=== PATIENT | male | born 1955 | race Two or more races ===

== ENCOUNTER 2016-09-23 19:22 | Inpatient (IN) | payer MEDICAID ==
[~2016-09-23] VITALS: Ht 167.6 cm; Wt 87.3 kg
[~2016-09-23 19:22] MED LIST: AMIO200T33 PO; APIX2.5T OR; ASPI-231 PO; ATOR20TA50 PO; CALC667C PO; CARV6.25 PO; CINA30TA2 PO; DOCU-94 PO; ERGO1CAP6 PO; GABA300C8 PO; HYDR-2652 PO; MIN25T PO; NEPVITT PO; NITR0.4S29 SL; PANT40TA2 PO; SEVE800T PO; TRAM50TA2 PO
[2016-09-23 20:13] LABS: Basophils # (auto) 0 uL; Basophils % (auto) 0.2 % (0.0-2.0); Eosinophils # (auto) 0.4 uL; Eosinophils % (auto) 4.5 % (0.0-7.0); Hemoglobin 11.1 g/dL (13.5-17.5); Lymphocytes # (auto) 0.9 uL; Lymphocytes % (auto) 10.3 % (10.0-50.0); Mean Corpuscular Hemoglobin 30.3 pg (28.0-32.0); Mean Corpuscular Hgb Conc. 32.8 g/dL (32.0-36.0); Mean Corpuscular Volume 92.2 fL (80.0-100.0); Monocytes # (auto) 0.9 uL; Neutrophils # (auto) 6.1 uL; Platelet Count (auto) 187 10^3/uL (140-450); Red Cell Distribution Width 14.2 % (11.6-16.0); White Blood Cell 8.3 10^3/uL (4.4-10.8)
[2016-09-23 20:39] LABS: Albumin 3.8 g/dL (3.4-5.0); BUN/Creatinine Ratio 8.2; Bilirubin, Total 0.5 mg/dL (0.2-1.0); Calcium 7.9 mg/dL (8.5-10.1); Potassium 4.1 mmol/L (3.5-5.1); Total Protein 7.8 g/dL (6.4-8.2)
[2016-09-24] MEDS ORDERED: NITROGLYCERIN 0.4 MG SL TAB SL PRN (10:45)
[2016-09-24] MEDS ORDERED: FUROSEMIDE 40 MG/4 ML VIAL IV SCH (10:45)
[2016-09-24] MEDS ORDERED: TEMAZEPAM 15 MG CAP PO PRN (10:45)
[2016-09-24] MEDS ORDERED: NITROGLYCERIN 0.2MG/HR TOPICAL PATCH TD ONE (10:45)
[2016-09-24] MEDS ORDERED: HYDROcodone-ACET 5/325MG TAB PO PRN (10:45)
[2016-09-24] MEDS ORDERED: DEXTROSE (50%) 50ML SYRG IV PRN (10:45)
[2016-09-24] MEDS ORDERED: FUROSEMIDE 20 MG/2 ML VIAL IV SCH (10:45)
[2016-09-24] MEDS ORDERED: PROMETHAZINE HCL 25 MG/ML 1ML IV PRN (10:45)
[2016-09-24] MEDS ORDERED: CARVEDILOL 3.125 MG TAB PO ONE (10:45)
[2016-09-24] MEDS ORDERED: ACETAMINOPHEN 500 MG TAB PO PRN (10:45)
[2016-09-24] MEDS ORDERED: MORPHINE SULF INJ 2 MG/ML SYRINGE 1ML IV PRN (10:45)
[2016-09-24] MEDS ORDERED: LORazepam 0.5 MG TAB PO PRN (10:45)
[2016-09-24] MEDS ORDERED: ASPirin 81 mg TAB PO ONE (10:45)
[2016-09-24] MEDS ORDERED: ENOXAPARIN SOD 30 MG/0.3 ML SYRINGE SC ONE (10:45)
[2016-09-24] MEDS ORDERED: LACTULOSE 20Gm/30ML SOLN PO PRN (10:45)
[2016-09-24] MEDS: ACCU-CHEK COMFORT CURVE STRIP VI SCH ×3 (11:12→22:00)
[2016-09-24] MEDS: InsuLIN REG 1unit/0.01ml Soln (100units/ml) SC SCH ×3 (11:12→22:00)
[2016-09-24 11:27] LABS: INR 1.14 (0.9-1.15); Partial Thromboplastin Time 30.6 sec (22.64-33.71); Prothrombin Time 11.7 sec (9.37-12.3)
[2016-09-24 13:00] VITALS: BP 154/74
[2016-09-24] MEDS: MORPHINE SULF INJ 2 MG/ML SYRINGE 1ML IV PRN ×2 (13:28→17:56)
[2016-09-24 17:00] VITALS: BP 125/69
[2016-09-24] MEDS ORDERED: SODIUM CHL 0.9% 1000 ML BAG XX ONE (20:15)
[2016-09-24] MEDS ORDERED: EPOETIN ALFA 2,000 UNIT/1 ML VIAL IV ONE ×2 (20:15→22:15)
[2016-09-24 21:42] VITALS: BP 133/71
[2016-09-24] MEDS ORDERED: ATORVASTATIN 20 MG TAB PO SCH (22:00)
[2016-09-24] MEDS: CARVEDILOL 3.125 MG TAB PO SCH (22:38)
[2016-09-25] VITALS (7 sets, daily range): BP systolic 97–163; BP diastolic 50–72
[2016-09-25 05:47] LABS: B-Type Natriuretic Peptide 340.63 pg/mL (0-100); Temperature: 21.9 C (20.0-25.0)
[2016-09-25 05:52] LABS: Albumin 3.5 g/dL (3.4-5.0); BUN/Creatinine Ratio 8.2; Bilirubin, Total 0.4 mg/dL (0.2-1.0); Calcium 7.7 mg/dL (8.5-10.1); Potassium 4.5 mmol/L (3.5-5.1); Total Protein 7.2 g/dL (6.4-8.2)
[2016-09-25] MEDS: ACCU-CHEK COMFORT CURVE STRIP VI SCH ×3 (06:54→17:00)
[2016-09-25] MEDS: InsuLIN REG 1unit/0.01ml Soln (100units/ml) SC SCH ×3 (07:00→17:00)
[2016-09-25] MEDS ORDERED: EPOETIN ALFA 3,000 UNIT/1 ML VIAL IV ONE (07:00)
[2016-09-25] MEDS ORDERED: EPOETIN ALFA 2,000 UNIT/1 ML VIAL IV ONE (07:00)
[2016-09-25] MEDS ORDERED: ENOXAPARIN SOD 30 MG/0.3 ML SYRINGE SC SCH (10:00)
[2016-09-25] MEDS ORDERED: ASPirin 81 mg TAB PO SCH (10:00)
[2016-09-25] MEDS ORDERED: NITROGLYCERIN 0.2MG/HR TOPICAL PATCH TD SCH (10:00)
[2016-09-25] MEDS: CALCIUM ACETATE 667 MG CAP PO SCH ×2 (11:13→11:22)
[2016-09-25] MEDS: CARVEDILOL 3.125 MG TAB PO SCH (11:13)
[2016-09-25] MEDS: MORPHINE SULF INJ 2 MG/ML SYRINGE 1ML IV PRN (12:42)
== END 2016-09-25 18:35 | disposition home or self-care (01) | DRG 194 ==
LOC: EDBD 19:22 → ER 19:26 → TELE 19:27 → ER 09-24 03:54 → TELE-WESTW 09-24 12:13
PROVIDERS: ADMIT Internal Medicine; ATTEND Internal Medicine
PROC: 5A1D00Z (ICD-10-PCS; principal; 2016-09-25)
DX: I13.2 Hypertensive heart and chronic kidney disease with heart failure and with stage 5 chronic kidney disease, or end stage renal disease (principal); J96.90 Respiratory failure, unspecified, unspecified whether with hypoxia or hypercapnia; I50.43 Acute on chronic combined systolic (congestive) and diastolic (congestive) heart failure; N18.6 End stage renal disease; E11.22 Type 2 diabetes mellitus with diabetic chronic kidney disease; I25.10 Atherosclerotic heart disease of native coronary artery without angina pectoris; E87.1 Hypo-osmolality and hyponatremia; E87.8 Other disorders of electrolyte and fluid balance, not elsewhere classified; G89.29 Other chronic pain; Z99.81 Dependence on supplemental oxygen; M54.5 Low back pain; W19.XXXA Unspecified fall, initial encounter; M19.90 Unspecified osteoarthritis, unspecified site; Z99.2 Dependence on renal dialysis; I48.0 Paroxysmal atrial fibrillation; E78.5 Hyperlipidemia, unspecified; D63.1 Anemia in chronic kidney disease; Z80.0 Family history of malignant neoplasm of digestive organs; Z83.3 Family history of diabetes mellitus; Z88.1 Allergy status to other antibiotic agents; Z79.899 Other long term (current) drug therapy; Z79.82 Long term (current) use of aspirin; Z90.49 Acquired absence of other specified parts of digestive tract
CPT/HCPCS: 36415; 71010; 72110; 80053; 80061; 82550; 82962; 83036; 83880; 84443; 84484; 85025; 85049; 85379; 85610; 85652; 85730; 86141; 87081; 93005; 93306; 93926; 96372; 96374; J1642; J1815; Q4081

== ENCOUNTER 2016-10-28 12:15 | Emergency (ER) | payer MEDICAID ==
[~2016-10-28] VITALS: Ht 167.6 cm; Wt 95.3 kg
[2016-10-28 13:20] VITALS: BP 100/46
== END 2016-10-28 13:30 | disposition home or self-care (01) ==
LOC: ER 12:33
DX: S39.012A Strain of muscle, fascia and tendon of lower back, initial encounter (principal); D64.9 Anemia, unspecified; I12.0 Hypertensive chronic kidney disease with stage 5 chronic kidney disease or end stage renal disease; N18.6 End stage renal disease; E78.5 Hyperlipidemia, unspecified; I10 Essential (primary) hypertension; I48.91 Unspecified atrial fibrillation; M47.896 Other spondylosis, lumbar region; Z88.1 Allergy status to other antibiotic agents; Z99.2 Dependence on renal dialysis; Z88.6 Allergy status to analgesic agent; W19.XXXA Unspecified fall, initial encounter; Y93.89 Activity, other specified; Y99.8 Other external cause status; Y92.89 Other specified places as the place of occurrence of the external cause
CPT/HCPCS: 93005

== ENCOUNTER 2016-11-21 20:09 | Inpatient (IN) | payer MEDICAID ==
[~2016-11-21] VITALS: Ht 170.2 cm; Wt 97.0 kg
[2016-11-21 21:28] LABS: Basophils # (auto) 0 uL; Basophils % (auto) 0.3 % (0.0-2.0); Eosinophils # (auto) 0.3 uL; Eosinophils % (auto) 3.3 % (0.0-7.0); Hematocrit 33.7 % (41.0-53.0); Hemoglobin 10.9 g/dL (13.5-17.5); Lymphocytes # (auto) 0.5 uL; Lymphocytes % (auto) 5.8 % (10.0-50.0); Mean Corpuscular Hemoglobin 30.1 pg (28.0-32.0); Mean Corpuscular Hgb Conc. 32.4 g/dL (32.0-36.0); Mean Corpuscular Volume 92.8 fL (80.0-100.0); Monocytes # (auto) 0.7 uL; Monocytes % (auto) 8.3 % (0.0-12.0); Neutrophils # (auto) 6.8 uL; Neutrophils % (auto) 82.3 % (37.0-80.0); Platelet Count (auto) 193 10^3/uL (140-450); Red Cell Distribution Width 14.7 % (11.6-16.0); White Blood Cell 8.3 10^3/uL (4.4-10.8)
[2016-11-21 21:54] LABS: INR 1.12 (0.9-1.15); Partial Thromboplastin Time 33.6 sec (22.64-33.71); Prothrombin Time 11.5 sec (9.37-12.3)
[2016-11-21 22:20] LABS: Potassium 4.4 mmol/L (3.5-5.1)
[2016-11-21 22:30] LABS: Albumin 3.3 g/dL (3.4-5.0); Calcium 6.6 mg/dL (8.5-10.1)
[2016-11-21 22:32] LABS: Bilirubin, Total 0.5 mg/dL (0.2-1.0); Total Protein 7.9 g/dL (6.4-8.2)
[2016-11-22] MEDS ORDERED: SODIUM CHLORIDE 0.9% 1,000 ML IV ONE (07:20)
[2016-11-22] MEDS ORDERED: cefTRIAXone 1GM/50ML D5W 50 ML IV ONE (07:30)
[2016-11-22] MEDS ORDERED: TEMAZEPAM 15 MG CAP PO PRN (12:30)
[2016-11-22] MEDS ORDERED: LACTULOSE 20Gm/30ML SOLN PO PRN (12:30)
[2016-11-22] MEDS ORDERED: DEXTROSE (50%) 50ML SYRG IV PRN (12:30)
[2016-11-22] MEDS ORDERED: LEVOFLOXACIN 250MG 50 ML IV ONE (12:30)
[2016-11-22] MEDS ORDERED: LORazepam 0.5 MG TAB PO PRN (12:30)
[2016-11-22] MEDS ORDERED: PROMETHAZINE HCL 25 MG/ML 1ML IV PRN (12:30)
[2016-11-22] MEDS: CLINDAMYCIN 600MG IV 50 ML IV SCH ×2 (15:40→22:29)
[2016-11-22] MEDS ORDERED: RANI-226 PO (16:16)
[2016-11-22 17:00] VITALS: BP 152/74
[2016-11-22] MEDS: InsuLIN REG 1unit/0.01ml Soln (100units/ml) SC SCH ×2 (17:00→22:30)
[2016-11-22] MEDS ORDERED: LACT10SO PO (17:02)
[2016-11-22] MEDS ORDERED: CLIN1CAP4 PO (17:02)
[2016-11-22] MEDS: ACCU-CHEK COMFORT CURVE STRIP VI SCH ×2 (18:21→22:29)
[2016-11-22 19:30] VITALS: BP 147/58
[2016-11-22 22:00] VITALS: BP 140/72
[2016-11-23] MEDS: MORPHINE SULF INJ 2 MG/ML SYRINGE 1ML IV PRN (02:00)
[2016-11-23] MEDS: InsuLIN REG 1unit/0.01ml Soln (100units/ml) SC SCH ×4 (05:43→22:00)
[2016-11-23] MEDS: CLINDAMYCIN 600MG IV 50 ML IV SCH ×3 (05:44→21:37)
[2016-11-23] MEDS: ACCU-CHEK COMFORT CURVE STRIP VI SCH ×4 (05:44→22:00)
[2016-11-23 05:50] VITALS: BP 155/64
[2016-11-23 06:08] LABS: Basophils # (auto) 0 uL; Basophils % (auto) 0.5 % (0.0-2.0); Eosinophils # (auto) 0.3 uL; Hemoglobin 11.4 g/dL (13.5-17.5); Lymphocytes # (auto) 0.7 uL; Lymphocytes % (auto) 9.2 % (10.0-50.0); Mean Corpuscular Hemoglobin 30.3 pg (28.0-32.0); Mean Corpuscular Hgb Conc. 33.6 g/dL (32.0-36.0); Mean Corpuscular Volume 90.3 fL (80.0-100.0); Mean Platelet Volume 9.3 fL (7.4-10.4); Monocytes # (auto) 0.7 uL; Monocytes % (auto) 10.5 % (0.0-12.0); Neutrophils # (auto) 5.4 uL; Neutrophils % (auto) 75.8 % (37.0-80.0); Platelet Count (auto) 178 10^3/uL (140-450); Red Cell Distribution Width 14.3 % (11.6-16.0); White Blood Cell 7.1 10^3/uL (4.4-10.8)
[2016-11-23 07:00] LABS: Albumin 3.4 g/dL (3.4-5.0); BUN/Creatinine Ratio 6.1; Bilirubin, Total 0.4 mg/dL (0.2-1.0); Calcium 7.3 mg/dL (8.5-10.1); Potassium 5.2 mmol/L (3.5-5.1); Total Protein 8.1 g/dL (6.4-8.2)
[2016-11-23 08:00] VITALS: BP 167/83
[2016-11-23] MEDS: MORPHINE SULFATE 4 MG/ML SYRG IV PRN ×2 (08:44→16:04)
[2016-11-23 09:00] VITALS: BP 167/83
[2016-11-23] MEDS: ENOXAPARIN SOD 30 MG/0.3 ML SYRINGE SC SCH (09:59)
[2016-11-23] MEDS ORDERED: LEVOFLOXACIN 250MG 50 ML IV SCH (10:00)
[2016-11-23] MEDS ORDERED: HEPARIN SODIUM (PORCINE) 5000 UNITS/ML 1ML VIAL IV ONE (12:45)
[2016-11-23 13:00] VITALS: BP 143/66
[2016-11-23 18:00] VITALS: BP 145/60
[2016-11-23] MEDS: ASCORBIC ACID 500 MG TAB PO SCH (21:37)
[2016-11-24 05:34] VITALS: BP 135/46
[2016-11-24] MEDS: CLINDAMYCIN 600MG IV 50 ML IV SCH ×2 (05:49→13:51)
[2016-11-24 06:04] LABS: Basophils # (auto) 0 uL; Basophils % (auto) 0.3 % (0.0-2.0); Eosinophils # (auto) 0.3 uL; Eosinophils % (auto) 5.1 % (0.0-7.0); Hematocrit 33.8 % (41.0-53.0); Hemoglobin 10.9 g/dL (13.5-17.5); Lymphocytes # (auto) 0.6 uL; Mean Corpuscular Hgb Conc. 32.4 g/dL (32.0-36.0); Mean Corpuscular Volume 92.5 fL (80.0-100.0); Mean Platelet Volume 8.9 fL (7.4-10.4); Monocytes # (auto) 0.6 uL; Monocytes % (auto) 11.3 % (0.0-12.0); Neutrophils # (auto) 3.7 uL; Neutrophils % (auto) 72.3 % (37.0-80.0); Platelet Count (auto) 192 10^3/uL (140-450); Red Cell Distribution Width 14.9 % (11.6-16.0); White Blood Cell 5.1 10^3/uL (4.4-10.8)
[2016-11-24] MEDS: MORPHINE SULF INJ 2 MG/ML SYRINGE 1ML IV PRN (06:04)
[2016-11-24] MEDS: InsuLIN REG 1unit/0.01ml Soln (100units/ml) SC SCH ×3 (06:14→17:00)
[2016-11-24] MEDS: ACCU-CHEK COMFORT CURVE STRIP VI SCH ×3 (06:14→17:00)
[2016-11-24 06:23] LABS: Albumin 3.4 g/dL (3.4-5.0); BUN/Creatinine Ratio 4.8; Bilirubin, Total 0.5 mg/dL (0.2-1.0); Calcium 7.4 mg/dL (8.5-10.1); Potassium 4.6 mmol/L (3.5-5.1); Total Protein 7.8 g/dL (6.4-8.2)
[2016-11-24 09:00] VITALS: BP 156/81
[2016-11-24] MEDS: ENOXAPARIN SOD 30 MG/0.3 ML SYRINGE SC SCH (09:37)
[2016-11-24] MEDS: ASCORBIC ACID 500 MG TAB PO SCH (09:37)
[2016-11-24] MEDS ORDERED: B-COMPLEX W/ C & FOLIC ACID(NEPHROVITE TAB) PO SCH (10:00)
[2016-11-24 13:00] VITALS: BP 143/62
[2016-11-24 15:49] VITALS: BP 140/64
[2016-11-25] MEDS ORDERED: EPOETIN ALFA 10,000 UNIT/1 ML VIAL IV ONE (09:00)
[2016-11-25] MEDS ORDERED: SODIUM CHL 0.9% 1000 ML BAG XX ONE (09:00)
[2016-11-25] MEDS ORDERED: LEVOFLOXACIN 250MG 50 ML IV SCH (11:03)
== END 2016-11-24 17:00 | disposition home or self-care (01) | DRG 380 ==
LOC: EDBD 20:09 → ER 20:31 → OVERFLOW 20:32 → CENTRAL 11-22 13:51
PROVIDERS: ADMIT Internal Medicine; ATTEND Internal Medicine
DX: E11.621 Type 2 diabetes mellitus with foot ulcer (principal); L97.519 Non-pressure chronic ulcer of other part of right foot with unspecified severity; I12.0 Hypertensive chronic kidney disease with stage 5 chronic kidney disease or end stage renal disease; E11.21 Type 2 diabetes mellitus with diabetic nephropathy; N18.6 End stage renal disease; I48.91 Unspecified atrial fibrillation; E11.22 Type 2 diabetes mellitus with diabetic chronic kidney disease; L03.115 Cellulitis of right lower limb; L03.116 Cellulitis of left lower limb; S92.912A Unspecified fracture of left toe(s), initial encounter for closed fracture; K74.60 Unspecified cirrhosis of liver; I25.10 Atherosclerotic heart disease of native coronary artery without angina pectoris; E78.5 Hyperlipidemia, unspecified; K76.9 Liver disease, unspecified; D63.1 Anemia in chronic kidney disease; E11.40 Type 2 diabetes mellitus with diabetic neuropathy, unspecified; E11.319 Type 2 diabetes mellitus with unspecified diabetic retinopathy without macular edema; E83.51 Hypocalcemia; E87.5 Hyperkalemia; K21.9 Gastro-esophageal reflux disease without esophagitis; E11.51 Type 2 diabetes mellitus with diabetic peripheral angiopathy without gangrene; F32.9 Major depressive disorder, single episode, unspecified; F41.9 Anxiety disorder, unspecified; E21.3 Hyperparathyroidism, unspecified; E44.1 Mild protein-calorie malnutrition; Z68.33 Body mass index [BMI] 33.0-33.9, adult; Z88.1 Allergy status to other antibiotic agents; Z99.2 Dependence on renal dialysis; Z88.6 Allergy status to analgesic agent; Z80.0 Family history of malignant neoplasm of digestive organs; Z83.3 Family history of diabetes mellitus; Z90.49 Acquired absence of other specified parts of digestive tract
CPT/HCPCS: 36415; 71010; 73630; 78582; 80053; 80061; 82962; 83036; 83735; 84443; 85025; 85379; 85610; 85652; 85730; 87040; 90935; 93005; 93971; 96365; 96375; J0696; J0885; J1815; J3490

== ENCOUNTER 2016-12-11 13:02 | Inpatient (IN) | payer MEDICAID ==
[~2016-12-11] VITALS: Ht 172.7 cm; Wt 95.2 kg
[~2016-12-11 13:02] MED LIST changes: +CLIN1CAP4 PO; +LACT10SO PO; +RANI-226 PO
[2016-12-11] MEDS ORDERED: ONDANSETRON HCL 4 MG/2 ML VIAL IV ONE (14:45)
[2016-12-11] MEDS ORDERED: HYDROmorphone HCL 2 MG/ML VL IV ONE (14:45)
[2016-12-11] MEDS ORDERED: ASPirin 81 mg TAB PO ONE (14:45)
[2016-12-11 14:57] LABS: Albumin 2.8 g/dL (3.4-5.0); BUN/Creatinine Ratio 6.6; Bilirubin, Total 0.4 mg/dL (0.2-1.0); Calcium 6.4 mg/dL (8.5-10.1); Total Protein 7.5 g/dL (6.4-8.2)
[2016-12-11 15:07] LABS: Potassium 6.8 mmol/L (3.5-5.1)
[2016-12-11 15:22] LABS: Basophils # (auto) 0 uL; Eosinophils # (auto) 0 uL; Eosinophils % (auto) 0.1 % (0.0-7.0); Hematocrit 31.4 % (41.0-53.0); Lymphocytes # (auto) 0.5 uL; Lymphocytes % (auto) 4.2 % (10.0-50.0); Mean Corpuscular Hemoglobin 29.4 pg (28.0-32.0); Mean Corpuscular Hgb Conc. 31.9 g/dL (32.0-36.0); Mean Corpuscular Volume 92.2 fL (80.0-100.0); Mean Platelet Volume 9.9 fL (7.4-10.4); Neutrophils % (auto) 86.7 % (37.0-80.0); Platelet Count (auto) 247 10^3/uL (140-450); Red Cell Distribution Width 16.1 % (11.6-16.0); White Blood Cell 11.6 10^3/uL (4.4-10.8)
[2016-12-11] MEDS ORDERED: InsuLIN REG 1unit/0.01ml Soln (100units/ml) IV ONE ×3 (15:30→21:15)
[2016-12-11] MEDS ORDERED: ALBUTEROL SULF 2.5 MG/0.5ML(0.5%) NEB SOLN HHN ONE (15:30)
[2016-12-11] MEDS ORDERED: SODIUM BICARBONATE 8.4% INJ 50ML SYRINGE IV ONE (15:30)
[2016-12-11] MEDS ORDERED: CALCIUM GLUC 4.65 MEQ/10ML 4.65 MEQ in SODIUM CHL 0.9% 50 ML IV ONE ×2 (15:30→21:15)
[2016-12-11] MEDS ORDERED: DEXTROSE (50%) 50ML SYRG IV ONE ×2 (15:30→21:15)
[2016-12-11] MEDS ORDERED: FUROSEMIDE 20 MG/2 ML VIAL IV ONE (15:30)
[2016-12-11] MEDS ORDERED: SODIUM POLYSTYRENE SULF 15GM/60ML SUSP PO ONE ×2 (15:30→21:15)
[2016-12-11] MEDS ORDERED: LACTULOSE 20Gm/30ML SOLN PO ONE (16:45)
[2016-12-11] MEDS ORDERED: CLINDAMYCIN 300MG IV 50 ML IV ONE (18:15)
[2016-12-11] MEDS ORDERED: NITROGLYCERIN 0.4 MG SL TAB SL PRN (19:00)
[2016-12-11] MEDS ORDERED: TEMAZEPAM 15 MG CAP PO PRN (19:00)
[2016-12-11] MEDS ORDERED: MORPHINE SULF INJ 2 MG/ML SYRINGE 1ML IV PRN ×2 (19:00)
[2016-12-11] MEDS ORDERED: ONDANSETRON HCL 4 MG/2 ML VIAL IV PRN (19:00)
[2016-12-11] MEDS ORDERED: DOCUSATE SOD 100 MG CAP PO PRN (19:00)
[2016-12-11 19:50] LABS: BUN/Creatinine Ratio 7.1; Calcium 6.6 mg/dL (8.5-10.1)
[2016-12-11 20:00] VITALS: BP 129/54
[2016-12-11 20:20] LABS: REFLEX LACTIC ACID YES OR NO YES
[2016-12-11 20:30] VITALS: BP 129/54
[2016-12-11] MEDS ORDERED: ALBUTEROL SULF 2.5 MG/0.5ML(0.5%) NEB SOLN NEB ONE (21:15)
[2016-12-11] MEDS ORDERED: SODIUM BICARBONATE 8.4 % INJ 50ML VIAL IV ONE (21:15)
[2016-12-11] MEDS: ATORVASTATIN 20 MG TAB PO SCH (21:54)
[2016-12-11] MEDS: ASCORBIC ACID 500 MG TAB PO SCH (21:54)
[2016-12-11] MEDS: GABAPENTIN 300 MG CAP PO SCH (21:55)
[2016-12-11] MEDS: MINOXIDIL 2.5 MG TAB PO SCH (21:55)
[2016-12-11] MEDS: hydrALAZINE HCL 25 MG TAB PO SCH (21:55)
[2016-12-11] MEDS: APIXABAN 2.5 MG TAB PO SCH (21:55)
[2016-12-11] MEDS: CARVEDILOL 3.125 MG TAB PO SCH (21:56)
[2016-12-11] MEDS: AMIODARONE HCL 200 MG TAB PO SCH (21:57)
[2016-12-11] MEDS: LACTULOSE 20Gm/30ML SOLN PO SCH (21:57)
[2016-12-11] MEDS: SODIUM CHLOR 0.9% PF (SALINE LOCK) 10ML VIAL IV SCH (21:58)
[2016-12-11] MEDS ORDERED: FAMOTIDINE 20 MG TAB PO SCH (22:00)
[2016-12-12] VITALS (7 sets, daily range): BP systolic 116–150; BP diastolic 46–75
[2016-12-12] MEDS: CLINDAMYCIN 300MG IV 50 ML IV SCH ×3 (03:59→19:26)
[2016-12-12 05:46] LABS: Basophils # (auto) 0 uL; Basophils % (auto) 0.2 % (0.0-2.0); Eosinophils # (auto) 0.1 uL; Eosinophils % (auto) 1.9 % (0.0-7.0); Hematocrit 27.3 % (41.0-53.0); Lymphocytes # (auto) 0.5 uL; Lymphocytes % (auto) 6.4 % (10.0-50.0); Mean Corpuscular Hemoglobin 29.8 pg (28.0-32.0); Mean Corpuscular Volume 90.3 fL (80.0-100.0); Monocytes # (auto) 0.9 uL; Monocytes % (auto) 11.6 % (0.0-12.0); Neutrophils # (auto) 5.9 uL; Neutrophils % (auto) 79.9 % (37.0-80.0); Platelet Count (auto) 197 10^3/uL (140-450); Red Cell Distribution Width 15.7 % (11.6-16.0); White Blood Cell 7.4 10^3/uL (4.4-10.8)
[2016-12-12 05:57] LABS: Albumin 2.8 g/dL (3.4-5.0); Calcium 6.7 mg/dL (8.5-10.1); Potassium 4.5 mmol/L (3.5-5.1)
[2016-12-12] MEDS: hydrALAZINE HCL 25 MG TAB PO SCH ×3 (06:00→21:35)
[2016-12-12 06:07] LABS: BUN/Creatinine Ratio 6.7; Bilirubin, Total 0.4 mg/dL (0.2-1.0); Total Protein 7.1 g/dL (6.4-8.2)
[2016-12-12] MEDS: SODIUM CHLOR 0.9% PF (SALINE LOCK) 10ML VIAL IV SCH ×3 (06:35→21:35)
[2016-12-12] MEDS: SEVELAMER 800 MG TAB PO SCH ×3 (08:00→18:21)
[2016-12-12] MEDS: CALCIUM ACETATE 667 MG CAP PO SCH ×3 (08:00→18:21)
[2016-12-12] MEDS: LACTULOSE 20Gm/30ML SOLN PO SCH ×3 (10:00→22:00)
[2016-12-12] MEDS: APIXABAN 2.5 MG TAB PO SCH ×2 (10:00→21:37)
[2016-12-12] MEDS: AMIODARONE HCL 200 MG TAB PO SCH ×2 (10:00→21:36)
[2016-12-12] MEDS: ASPirin-EC 81 mg tab PO SCH (10:00)
[2016-12-12] MEDS: MINOXIDIL 2.5 MG TAB PO SCH ×2 (10:00→21:37)
[2016-12-12] MEDS: CARVEDILOL 3.125 MG TAB PO SCH ×2 (10:00→21:36)
[2016-12-12 10:02] LABS: Partial Thromboplastin Time 33.5 sec (22.64-33.71)
[2016-12-12 10:10] LABS: INR 1.27 (0.9-1.15); Prothrombin Time 13.7 sec (9.37-12.3)
[2016-12-12] MEDS ORDERED: VANCOMYCIN PER PHARMACY 0 MG IV SCH (10:15)
[2016-12-12] MEDS ORDERED: EPOETIN ALFA 10,000 UNIT/1 ML VIAL IV ONE ×2 (10:30→15:30)
[2016-12-12 11:33] LABS: Potassium 5.9 mmol/L (3.5-5.1)
[2016-12-12] MEDS ORDERED: VANCOMYCIN 1,250 MG in D5W 5% 250 ML IV ONE (13:00)
[2016-12-12] MEDS: MULTIPLE VITAMIN TAB PO SCH (14:27)
[2016-12-12] MEDS: ZINC SULFATE 220 MG CAP PO SCH (14:27)
[2016-12-12] MEDS: B-COMPLEX W/ C & FOLIC ACID(NEPHROVITE TAB) PO SCH (14:28)
[2016-12-12] MEDS: PANTOPRAZOLE 40 MG TAB PO SCH (14:28)
[2016-12-12] MEDS: ASCORBIC ACID 500 MG TAB PO SCH ×2 (14:29→21:37)
[2016-12-12] MEDS: CINACALCET HYDROCHLORIDE 30 MG TAB PO SCH (14:29)
[2016-12-12] MEDS ORDERED: SODIUM CHL 0.9% 1000 ML BAG XX ONE (15:30)
[2016-12-12] MEDS: traMADol HCL 50 MG TAB PO PRN (17:23)
[2016-12-12] MEDS: ATORVASTATIN 20 MG TAB PO SCH (21:36)
[2016-12-12] MEDS: GABAPENTIN 300 MG CAP PO SCH (21:37)
[2016-12-13] VITALS: BP 116/55
[2016-12-13] MEDS: MORPHINE SULF INJ 2 MG/ML SYRINGE 1ML IV PRN (02:26)
[2016-12-13] MEDS: CLINDAMYCIN 300MG IV 50 ML IV SCH ×3 (03:16→20:09)
[2016-12-13 04:00] VITALS: BP 135/57
[2016-12-13 05:28] LABS: Basophils # (auto) 0 uL; Basophils % (auto) 0.3 % (0.0-2.0); Eosinophils # (auto) 0.2 uL; Eosinophils % (auto) 2.4 % (0.0-7.0); Hemoglobin 8.8 g/dL (13.5-17.5); Lymphocytes # (auto) 0.4 uL; Lymphocytes % (auto) 4.9 % (10.0-50.0); Mean Corpuscular Hemoglobin 29.3 pg (28.0-32.0); Mean Corpuscular Hgb Conc. 32.5 g/dL (32.0-36.0); Mean Corpuscular Volume 89.9 fL (80.0-100.0); Mean Platelet Volume 9.2 fL (7.4-10.4); Monocytes % (auto) 11.6 % (0.0-12.0); Neutrophils # (auto) 7.2 uL; Neutrophils % (auto) 80.8 % (37.0-80.0); Platelet Count (auto) 262 10^3/uL (140-450); Red Cell Distribution Width 15.8 % (11.6-16.0); White Blood Cell 8.9 10^3/uL (4.4-10.8)
[2016-12-13] MEDS: SODIUM CHLOR 0.9% PF (SALINE LOCK) 10ML VIAL IV SCH ×3 (05:34→21:25)
[2016-12-13] MEDS: hydrALAZINE HCL 25 MG TAB PO SCH ×3 (05:35→21:24)
[2016-12-13 05:51] LABS: Albumin 2.6 g/dL (3.4-5.0); BUN/Creatinine Ratio 5.4; Bilirubin, Total 0.5 mg/dL (0.2-1.0); Calcium 7.1 mg/dL (8.5-10.1); Potassium 4.6 mmol/L (3.5-5.1)
[2016-12-13] MEDS ORDERED: DEXTROSE (50%) 50ML SYRG IV PRN (09:30)
[2016-12-13 09:48] VITALS: BP 152/63
[2016-12-13] MEDS: MULTIPLE VITAMIN TAB PO SCH (10:00)
[2016-12-13] MEDS: APIXABAN 2.5 MG TAB PO SCH ×2 (10:00→21:23)
[2016-12-13] MEDS: ASCORBIC ACID 500 MG TAB PO SCH ×2 (10:00→21:22)
[2016-12-13] MEDS: LACTULOSE 20Gm/30ML SOLN PO SCH ×2 (10:00→21:22)
[2016-12-13] MEDS: AMIODARONE HCL 200 MG TAB PO SCH ×2 (10:00→21:24)
[2016-12-13] MEDS: ZINC SULFATE 220 MG CAP PO SCH (10:00)
[2016-12-13] MEDS: CINACALCET HYDROCHLORIDE 30 MG TAB PO SCH (10:00)
[2016-12-13] MEDS: MINOXIDIL 2.5 MG TAB PO SCH ×2 (10:00→21:24)
[2016-12-13] MEDS: B-COMPLEX W/ C & FOLIC ACID(NEPHROVITE TAB) PO SCH (10:00)
[2016-12-13] MEDS: PANTOPRAZOLE 40 MG TAB PO SCH (10:00)
[2016-12-13] MEDS: CARVEDILOL 3.125 MG TAB PO SCH ×2 (10:00→21:25)
[2016-12-13] MEDS ORDERED: ERGOCALCIFEROL 50,000 UNIT(1.25MG) CAP PO SCH (10:00)
[2016-12-13] MEDS: ASPirin-EC 81 mg tab PO SCH (10:00)
[2016-12-13 12:30] VITALS: BP 152/78
[2016-12-13] MEDS: CALCIUM ACETATE 667 MG CAP PO SCH ×3 (13:30→18:45)
[2016-12-13] MEDS: SEVELAMER 800 MG TAB PO SCH ×3 (13:30→18:45)
[2016-12-13] MEDS: traMADol HCL 50 MG TAB PO PRN (13:33)
[2016-12-13] MEDS: ACCU-CHEK COMFORT CURVE STRIP VI SCH ×4 (13:36→18:45)
[2016-12-13] MEDS: InsuLIN REG 1unit/0.01ml Soln (100units/ml) SC SCH ×2 (13:37→18:46)
[2016-12-13 17:09] VITALS: BP 89/40
[2016-12-13] MEDS: GABAPENTIN 300 MG CAP PO SCH (21:22)
[2016-12-13] MEDS: ATORVASTATIN 20 MG TAB PO SCH (21:23)
[2016-12-13 22:00] VITALS: BP 138/61
[2016-12-14] MEDS: ACCU-CHEK COMFORT CURVE STRIP VI SCH ×8 (00:08→18:03)
[2016-12-14] MEDS: InsuLIN REG 1unit/0.01ml Soln (100units/ml) SC SCH ×4 (00:09→18:00)
[2016-12-14] MEDS: CLINDAMYCIN 300MG IV 50 ML IV SCH ×3 (03:23→20:10)
[2016-12-14] MEDS: traMADol HCL 50 MG TAB PO PRN ×2 (05:33→22:42)
[2016-12-14 05:34] VITALS: BP 98/45
[2016-12-14] MEDS: hydrALAZINE HCL 25 MG TAB PO SCH ×3 (05:40→22:00)
[2016-12-14] MEDS: SODIUM CHLOR 0.9% PF (SALINE LOCK) 10ML VIAL IV SCH ×3 (05:42→22:31)
[2016-12-14] MEDS: SEVELAMER 800 MG TAB PO SCH ×3 (08:02→18:05)
[2016-12-14] MEDS: CALCIUM ACETATE 667 MG CAP PO SCH ×3 (08:02→18:06)
[2016-12-14 08:31] VITALS: BP 115/49
[2016-12-14] MEDS: MORPHINE SULF INJ 2 MG/ML SYRINGE 1ML IV PRN (09:38)
[2016-12-14] MEDS: CARVEDILOL 3.125 MG TAB PO SCH ×2 (10:00→22:00)
[2016-12-14] MEDS: MINOXIDIL 2.5 MG TAB PO SCH ×2 (10:00→22:00)
[2016-12-14] MEDS: ZINC SULFATE 220 MG CAP PO SCH (10:11)
[2016-12-14] MEDS: LACTULOSE 20Gm/30ML SOLN PO SCH ×2 (10:11→22:32)
[2016-12-14] MEDS: B-COMPLEX W/ C & FOLIC ACID(NEPHROVITE TAB) PO SCH (10:11)
[2016-12-14] MEDS: AMIODARONE HCL 200 MG TAB PO SCH ×2 (10:13→22:00)
[2016-12-14] MEDS: ASCORBIC ACID 500 MG TAB PO SCH ×2 (10:13→22:35)
[2016-12-14] MEDS: MULTIPLE VITAMIN TAB PO SCH (10:13)
[2016-12-14] MEDS: APIXABAN 2.5 MG TAB PO SCH ×2 (10:13→22:33)
[2016-12-14] MEDS: ASPirin-EC 81 mg tab PO SCH (10:13)
[2016-12-14] MEDS: PANTOPRAZOLE 40 MG TAB PO SCH (10:14)
[2016-12-14 12:48] VITALS: BP 117/66
[2016-12-14] MEDS: CINACALCET HYDROCHLORIDE 30 MG TAB PO SCH (13:11)
[2016-12-14] MEDS ORDERED: EPOETIN ALFA 10,000 UNIT/1 ML VIAL IV ONE (13:30)
[2016-12-14] MEDS ORDERED: SODIUM CHL 0.9% 1000 ML BAG XX ONE (13:30)
[2016-12-14 14:44] LABS: Basophils # (auto) 0 uL; Basophils % (auto) 0.5 % (0.0-2.0); Eosinophils # (auto) 0.3 uL; Eosinophils % (auto) 3.4 % (0.0-7.0); Hematocrit 31.7 % (41.0-53.0); Hemoglobin 10.1 g/dL (13.5-17.5); Lymphocytes # (auto) 0.6 uL; Lymphocytes % (auto) 7.1 % (10.0-50.0); Mean Corpuscular Hgb Conc. 31.9 g/dL (32.0-36.0); Mean Platelet Volume 8.1 fL (7.4-10.4); Monocytes # (auto) 0.9 uL; Monocytes % (auto) 10.6 % (0.0-12.0); Neutrophils % (auto) 78.4 % (37.0-80.0); Platelet Count (auto) 338 10^3/uL (140-450); Red Cell Distribution Width 15.5 % (11.6-16.0)
[2016-12-14 15:05] LABS: Albumin 2.9 g/dL (3.4-5.0); BUN/Creatinine Ratio 4.8; Bilirubin, Total 0.5 mg/dL (0.2-1.0); Calcium 7.8 mg/dL (8.5-10.1); Potassium 5.3 mmol/L (3.5-5.1); Total Protein 8.1 g/dL (6.4-8.2)
[2016-12-14 16:51] VITALS: BP 129/56
[2016-12-14 21:47] VITALS: BP 111/41
[2016-12-14] MEDS: PRO-STAT 64 30ML PO SCH (22:00)
[2016-12-14] MEDS: ATORVASTATIN 20 MG TAB PO SCH (22:34)
[2016-12-14] MEDS: GABAPENTIN 300 MG CAP PO SCH (22:34)
[2016-12-15] MEDS: ACCU-CHEK COMFORT CURVE STRIP VI SCH ×6 (00:06→12:00)
[2016-12-15] MEDS: CLINDAMYCIN 300MG IV 50 ML IV SCH ×2 (03:50→12:00)
[2016-12-15 04:30] VITALS: BP 166/70
[2016-12-15] MEDS: InsuLIN REG 1unit/0.01ml Soln (100units/ml) SC SCH ×3 (06:00→12:00)
[2016-12-15] MEDS: hydrALAZINE HCL 25 MG TAB PO SCH ×2 (06:00→14:00)
[2016-12-15] MEDS: SODIUM CHLOR 0.9% PF (SALINE LOCK) 10ML VIAL IV SCH ×2 (06:12→14:00)
[2016-12-15 06:23] LABS: Basophils # (auto) 0 uL; Basophils % (auto) 0.2 % (0.0-2.0); Eosinophils # (auto) 0.4 uL; Eosinophils % (auto) 4.3 % (0.0-7.0); Hematocrit 31.6 % (41.0-53.0); Hemoglobin 10.1 g/dL (13.5-17.5); Lymphocytes # (auto) 0.8 uL; Lymphocytes % (auto) 8.3 % (10.0-50.0); Mean Corpuscular Hemoglobin 29.1 pg (28.0-32.0); Mean Platelet Volume 8.3 fL (7.4-10.4); Monocytes % (auto) 11.4 % (0.0-12.0); Neutrophils # (auto) 6.9 uL; Neutrophils % (auto) 75.8 % (37.0-80.0); Platelet Count (auto) 381 10^3/uL (140-450); Red Cell Distribution Width 15.6 % (11.6-16.0); White Blood Cell 9.1 10^3/uL (4.4-10.8)
[2016-12-15 06:52] LABS: Albumin 3.1 g/dL (3.4-5.0); BUN/Creatinine Ratio 5.4; Bilirubin, Total 0.7 mg/dL (0.2-1.0); Calcium 7.5 mg/dL (8.5-10.1); Total Protein 8.1 g/dL (6.4-8.2)
[2016-12-15 07:01] LABS: Potassium 5.7 mmol/L (3.5-5.1)
[2016-12-15] MEDS: SEVELAMER 800 MG TAB PO SCH ×2 (08:00→12:00)
[2016-12-15] MEDS: CALCIUM ACETATE 667 MG CAP PO SCH ×2 (08:00→12:00)
[2016-12-15 09:00] VITALS: BP 133/62
[2016-12-15] MEDS: MORPHINE SULF INJ 2 MG/ML SYRINGE 1ML IV PRN (09:21)
[2016-12-15] MEDS: PRO-STAT 64 30ML PO SCH (10:00)
[2016-12-15] MEDS: MULTIPLE VITAMIN TAB PO SCH (10:00)
[2016-12-15] MEDS: ZINC SULFATE 220 MG CAP PO SCH (10:00)
[2016-12-15] MEDS: AMIODARONE HCL 200 MG TAB PO SCH (10:00)
[2016-12-15] MEDS: B-COMPLEX W/ C & FOLIC ACID(NEPHROVITE TAB) PO SCH (10:00)
[2016-12-15] MEDS: LACTULOSE 20Gm/30ML SOLN PO SCH (10:00)
[2016-12-15] MEDS: PANTOPRAZOLE 40 MG TAB PO SCH (10:00)
[2016-12-15] MEDS: CINACALCET HYDROCHLORIDE 30 MG TAB PO SCH (10:00)
[2016-12-15] MEDS: ASPirin-EC 81 mg tab PO SCH (10:00)
[2016-12-15] MEDS: APIXABAN 2.5 MG TAB PO SCH (10:00)
[2016-12-15] MEDS: CARVEDILOL 3.125 MG TAB PO SCH (10:00)
[2016-12-15] MEDS: MINOXIDIL 2.5 MG TAB PO SCH (10:00)
[2016-12-15] MEDS: ASCORBIC ACID 500 MG TAB PO SCH (10:00)
[2016-12-15 13:00] VITALS: BP 134/66
[2016-12-15 13:59] VITALS: BP 134/66
[2016-12-15 16:11] VITALS: BP 120/55
[2016-12-15 16:51] VITALS: BP 117/59
== END 2016-12-15 17:20 | disposition home or self-care (01) | DRG 279 ==
LOC: ER 13:02 → TELE 13:03 → DOU IN ICU 19:58 → TELE-WESTW 12-13 08:00
PROVIDERS: ADMIT Internal Medicine; ATTEND Internal Medicine
PROC: 5A1D60Z (ICD-10-PCS; principal; 2016-12-12)
PROC: 0YJ Anatomical Regions, Lower Extremities, Inspection (ICD-10-PCS; 2016-12-13)
DX: K72.90 Hepatic failure, unspecified without coma (principal); E43 Unspecified severe protein-calorie malnutrition; N18.6 End stage renal disease; I12.0 Hypertensive chronic kidney disease with stage 5 chronic kidney disease or end stage renal disease; D68.59 Other primary thrombophilia; E11.21 Type 2 diabetes mellitus with diabetic nephropathy; E11.621 Type 2 diabetes mellitus with foot ulcer; L97.519 Non-pressure chronic ulcer of other part of right foot with unspecified severity; I48.91 Unspecified atrial fibrillation; K74.60 Unspecified cirrhosis of liver; E87.5 Hyperkalemia; E78.5 Hyperlipidemia, unspecified; D63.8 Anemia in other chronic diseases classified elsewhere; R94.5 Abnormal results of liver function studies; E87.1 Hypo-osmolality and hyponatremia; I25.10 Atherosclerotic heart disease of native coronary artery without angina pectoris; I48.92 Unspecified atrial flutter; M79.81 Nontraumatic hematoma of soft tissue; I48.0 Paroxysmal atrial fibrillation; E11.22 Type 2 diabetes mellitus with diabetic chronic kidney disease; Z80.0 Family history of malignant neoplasm of digestive organs; Z83.3 Family history of diabetes mellitus; Z91.19 Patient's noncompliance with other medical treatment and regimen; Z91.81 History of falling; Z99.2 Dependence on renal dialysis; Z99.3 Dependence on wheelchair; Z88.1 Allergy status to other antibiotic agents; Z79.899 Other long term (current) drug therapy; Z90.49 Acquired absence of other specified parts of digestive tract; Z80.8 Family history of malignant neoplasm of other organs or systems; Z68.31 Body mass index [BMI] 31.0-31.9, adult
CPT/HCPCS: 36415; 70450; 71020; 73630; 76881; 76942; 78315; 80048; 80053; 80202; 80320; 82140; 82962; 83036; 83605; 84484; 85025; 85610; 85730; 87040; 87081; 87205; 93005; 93923; 93970; 94640; 96365; 96375; 96376; 99291; J0885; J1642; J1815; J2405; J3490; J7060

== ENCOUNTER 2017-02-09 15:47 | Emergency (ER) | payer MEDICAID ==
[~2017-02-09 15:47] MED LIST changes: +GABA-497 PO; -GABA300C8 PO; -LACT10SO PO; +LACT10SO3 PO
[2017-02-09] MEDS ORDERED: PANTOPRAZOLE SODIUM 40 MG/10 ML VIAL IV STA (16:27)
[2017-02-09] MEDS ORDERED: HYDROmorphone HCL 2 MG/ML VL IV ONE ×2 (16:30→23:30)
[2017-02-09] MEDS ORDERED: ONDANSETRON HCL 4 MG/2 ML VIAL IV ONE ×2 (16:30→23:30)
[2017-02-09] MEDS ORDERED: MORPHINE SULFATE 4 MG/ML SYRG IV ONE (16:45)
[2017-02-09 18:03] LABS: Basophils # (auto) 0 uL; Basophils % (auto) 0.3 % (0.0-2.0); Eosinophils # (auto) 0.1 uL; Eosinophils % (auto) 0.8 % (0.0-7.0); Hematocrit 38.9 % (41.0-53.0); Hemoglobin 12.7 g/dL (13.5-17.5); Lymphocytes # (auto) 0.8 uL; Lymphocytes % (auto) 12.4 % (10.0-50.0); Mean Corpuscular Hemoglobin 27.6 pg (28.0-32.0); Mean Corpuscular Hgb Conc. 32.7 g/dL (32.0-36.0); Mean Corpuscular Volume 84.4 fL (80.0-100.0); Mean Platelet Volume 9.2 fL (7.4-10.4); Monocytes # (auto) 1.1 uL; Monocytes % (auto) 17.2 % (0.0-12.0); Neutrophils # (auto) 4.5 uL; Neutrophils % (auto) 69.3 % (37.0-80.0); Platelet Count (auto) 296 10^3/uL (140-450); Red Cell Distribution Width 17.4 % (11.6-16.0); White Blood Cell 6.5 10^3/uL (4.4-10.8)
[2017-02-09 18:17] LABS: Albumin 3.6 g/dL (3.4-5.0); BUN/Creatinine Ratio 5.6; Calcium 8.5 mg/dL (8.5-10.1); Potassium 3.9 mmol/L (3.5-5.1)
[2017-02-09 18:20] LABS: Bilirubin, Total 0.5 mg/dL (0.2-1.0); Total Protein 9.1 g/dL (6.4-8.2)
[2017-02-09 18:29] LABS: Magnesium 2.6 mg/dL (1.6-2.6)
[2017-02-09] MEDS ORDERED: SODIUM CHLORIDE 0.9% 1,000 ML IV ONE (20:45)
[2017-02-10 01:43] VITALS: BP 108/53
== END 2017-02-10 02:23 | disposition left against medical advice (07) ==
LOC: EDBD 15:47 → ER 16:20
DX: I12.0 Hypertensive chronic kidney disease with stage 5 chronic kidney disease or end stage renal disease (principal); N18.6 End stage renal disease; E11.22 Type 2 diabetes mellitus with diabetic chronic kidney disease; R10.9 Unspecified abdominal pain; R19.7 Diarrhea, unspecified; R11.2 Nausea with vomiting, unspecified; R50.9 Fever, unspecified; Z88.1 Allergy status to other antibiotic agents; Z88.8 Allergy status to other drugs, medicaments and biological substances; Z79.899 Other long term (current) drug therapy; I48.91 Unspecified atrial fibrillation; I25.10 Atherosclerotic heart disease of native coronary artery without angina pectoris; E78.5 Hyperlipidemia, unspecified; E07.9 Disorder of thyroid, unspecified; Z90.49 Acquired absence of other specified parts of digestive tract; Z99.2 Dependence on renal dialysis
CPT/HCPCS: 36415; 74176; 76705; 80053; 82140; 82150; 83690; 83735; 85025; 93005; 94761; 96361; 96374; 96375; 96376; 99285; C9113; J1170; J2270; J2405; J7030

== ENCOUNTER 2017-05-19 08:49 | Emergency (ER) | payer MEDICAID ==
[~2017-05-19] VITALS: Ht 175.3 cm; Wt 99.8 kg
[2017-05-19 10:07] LABS: Basophils # (auto) 0 uL; Basophils % (auto) 0.4 % (0.0-2.0); Eosinophils # (auto) 0.2 uL; Eosinophils % (auto) 2.8 % (0.0-7.0); Hematocrit 32.8 % (41.0-53.0); Hemoglobin 10.8 g/dL (13.5-17.5); Lymphocytes # (auto) 0.7 uL; Lymphocytes % (auto) 8.7 % (10.0-50.0); Mean Corpuscular Hemoglobin 30.4 pg (28.0-32.0); Mean Corpuscular Volume 92.3 fL (80.0-100.0); Mean Platelet Volume 9.8 fL (7.4-10.4); Monocytes # (auto) 0.7 uL; Monocytes % (auto) 8.6 % (0.0-12.0); Neutrophils # (auto) 6.4 uL; Neutrophils % (auto) 79.5 % (37.0-80.0); Nucleated Red Blood Cells % 0.1 %; Platelet Count (auto) 114 10^3/uL (140-450); Red Cell Distribution Width 15.5 % (11.6-16.0)
[2017-05-19 10:18] LABS: INR 1.09 (0.9-1.15); Partial Thromboplastin Time 31.7 sec (22.64-33.71); Prothrombin Time 11.9 sec (9.37-12.3)
[2017-05-19 10:32] LABS: Albumin 3.5 g/dL (3.4-5.0); BUN/Creatinine Ratio 7.4; Bilirubin, Total 0.5 mg/dL (0.2-1.0)
[2017-05-19 10:36] LABS: Potassium 7.2 mmol/L (3.5-5.1)
[2017-05-19 10:57] LABS: B-Type Natriuretic Peptide 1916.28 pg/mL (0-100)
[2017-05-19 10:58] LABS: Temperature: 23.3 C (20.0-25.0)
[2017-05-19] MEDS ORDERED: ALBUTEROL SULF 2.5 MG/0.5ML(0.5%) NEB SOLN NEB STA (11:18)
[2017-05-19] MEDS ORDERED: SODIUM BICARBONATE 8.4% INJ 50ML SYRINGE IV ONE (11:30)
[2017-05-19] MEDS ORDERED: DEXTROSE (50%) 50ML SYRG IV ONE (11:30)
[2017-05-19] MEDS ORDERED: CALCIUM GLUC 4.65meq/50ml D5AE 50 ML IV ONE (11:30)
[2017-05-19] MEDS ORDERED: SODIUM POLYSTYRENE SULF 15GM/60ML SUSP PO ONE (11:30)
[2017-05-19] MEDS ORDERED: InsuLIN REG 1unit/0.01ml Soln (100units/ml) IV ONE (11:30)
[2017-05-19 13:28] VITALS: BP 151/69
[2017-05-19 15:47] LABS: Albumin 3.6 g/dL (3.4-5.0); BUN/Creatinine Ratio 6.7; Bilirubin, Total 0.6 mg/dL (0.2-1.0); Calcium 7.9 mg/dL (8.5-10.1); Potassium 4.6 mmol/L (3.5-5.1); Total Protein 8.3 g/dL (6.4-8.2)
== END 2017-05-19 17:45 | disposition home or self-care (01) ==
LOC: EDBD 08:49 → ER 08:49
DX: N18.6 End stage renal disease (principal); E11.22 Type 2 diabetes mellitus with diabetic chronic kidney disease; I12.0 Hypertensive chronic kidney disease with stage 5 chronic kidney disease or end stage renal disease; Z99.2 Dependence on renal dialysis; Z79.4 Long term (current) use of insulin; I48.91 Unspecified atrial fibrillation; I25.10 Atherosclerotic heart disease of native coronary artery without angina pectoris; Z90.49 Acquired absence of other specified parts of digestive tract
CPT/HCPCS: 36415; 71010; 80053; 83880; 84484; 85025; 85610; 85730; 96365; 96375; 99285; J0610; J1815; J7042; 90935

== ENCOUNTER 2017-11-08 22:14 | Emergency (ER) | payer MEDICAID ==
[~2017-11-08] VITALS: Ht 167.6 cm; Wt 95.3 kg
[~2017-11-08 22:14] MED LIST changes: -GABA-497 PO; +GABA300C10 PO; -HYDR-2652 PO; +HYDR50TA15 PO
[2017-11-08 23:55] LABS: Basophils # (auto) 0.1 uL; Eosinophils # (auto) 0.2 uL; Eosinophils % (auto) 2.9 % (0.0-7.0); Hematocrit 30.4 % (41.0-53.0); Lymphocytes # (auto) 0.7 uL; Lymphocytes % (auto) 11.1 % (10.0-50.0); Mean Corpuscular Hemoglobin 31.2 pg (28.0-32.0); Mean Corpuscular Volume 94.6 fL (80.0-100.0); Monocytes # (auto) 0.8 uL; Monocytes % (auto) 11.5 % (0.0-12.0); Neutrophils # (auto) 4.8 uL; Neutrophils % (auto) 73.5 % (37.0-80.0); Platelet Count (auto) 112 10^3/uL (140-450); Red Blood Cells 3.21 10^6/uL (4.5-5.90); Red Cell Distribution Width 14.9 % (11.8-14.3); White Blood Cell 6.6 10^3/uL (4.4-10.8)
[2017-11-09 00:07] LABS: Albumin 3.3 g/dL (3.4-5.0); BUN/Creatinine Ratio 4.9; Calcium 7.5 mg/dL (8.5-10.1); Potassium 4.1 mmol/L (3.5-5.1)
[2017-11-09 00:10] LABS: Bilirubin, Total 0.4 mg/dL (0.2-1.0); Total Protein 7.7 g/dL (6.4-8.2)
[2017-11-09 07:45] VITALS: BP 150/71
[2017-11-09] MEDS ORDERED: HYDROcodone-ACET 10/325MG TAB PO ONE (07:45)
[2017-11-09] MEDS ORDERED: traMADol HCL 50 MG TAB PO ONE (08:45)
== END 2017-11-09 11:00 | disposition home or self-care (01) ==
LOC: ER 22:14
DX: M79.1 Myalgia (principal); I48.91 Unspecified atrial fibrillation; I25.10 Atherosclerotic heart disease of native coronary artery without angina pectoris; N18.6 End stage renal disease; E11.22 Type 2 diabetes mellitus with diabetic chronic kidney disease; E78.5 Hyperlipidemia, unspecified; I12.0 Hypertensive chronic kidney disease with stage 5 chronic kidney disease or end stage renal disease; E07.9 Disorder of thyroid, unspecified; Z90.49 Acquired absence of other specified parts of digestive tract; Z88.8 Allergy status to other drugs, medicaments and biological substances; Z79.82 Long term (current) use of aspirin; Z99.2 Dependence on renal dialysis
CPT/HCPCS: 36415; 71046; 80053; 85025

== ENCOUNTER 2017-11-18 09:40 | Emergency (ER) | payer MEDICAID ==
[~2017-11-18] VITALS: Ht 167.6 cm; Wt 95.3 kg
[2017-11-18 12:54] LABS: Basophils # (auto) 0.1 uL; Basophils % (auto) 0.5 % (0.0-2.0); Eosinophils # (auto) 0.4 uL; Eosinophils % (auto) 4.1 % (0.0-7.0); Hematocrit 31.5 % (41.0-53.0); Hemoglobin 10.1 g/dL (13.5-17.5); Lymphocytes # (auto) 1.3 uL; Lymphocytes % (auto) 13.6 % (10.0-50.0); Mean Corpuscular Hemoglobin 30.8 pg (28.0-32.0); Mean Corpuscular Hgb Conc. 32.2 g/dL (32.0-36.0); Mean Corpuscular Volume 95.8 fL (80.0-100.0); Monocytes # (auto) 0.8 uL; Monocytes % (auto) 8.5 % (0.0-12.0); Neutrophils # (auto) 6.9 uL; Neutrophils % (auto) 73.3 % (37.0-80.0); Platelet Count (auto) 212 10^3/uL (140-450); Red Blood Cells 3.29 10^6/uL (4.5-5.90); Red Cell Distribution Width 15.2 % (11.8-14.3); White Blood Cell 9.4 10^3/uL (4.4-10.8)
[2017-11-18 13:06] LABS: Albumin 3.5 g/dL (3.4-5.0); BUN/Creatinine Ratio 7.3; Potassium 4.7 mmol/L (3.5-5.1)
[2017-11-18 13:09] LABS: Bilirubin, Total 0.6 mg/dL (0.2-1.0); Total Protein 7.7 g/dL (6.4-8.2)
[2017-11-18] MEDS ORDERED: traMADol HCL 50 MG TAB PO ONE (14:00)
[2017-11-18 16:17] VITALS: BP 126/53
== END 2017-11-18 16:40 | disposition home or self-care (01) ==
LOC: ER 09:40 → EDBD 09:40 → ER 16:40
DX: N18.6 End stage renal disease (principal); T82.521A Displacement of surgically created arteriovenous shunt, initial encounter; E11.22 Type 2 diabetes mellitus with diabetic chronic kidney disease; I12.0 Hypertensive chronic kidney disease with stage 5 chronic kidney disease or end stage renal disease; D64.9 Anemia, unspecified; I25.10 Atherosclerotic heart disease of native coronary artery without angina pectoris; I48.91 Unspecified atrial fibrillation; E78.00 Pure hypercholesterolemia, unspecified; Z99.2 Dependence on renal dialysis; Z88.1 Allergy status to other antibiotic agents; Z88.6 Allergy status to analgesic agent
CPT/HCPCS: 12001; 36415; 80053; 85025; 86850; 86900; 86901; 99284; J7030

== ENCOUNTER 2017-12-07 05:58 | Emergency (ER) | payer MEDICAID ==
[~2017-12-07] VITALS: Ht 167.6 cm; Wt 97.5 kg
[2017-12-07 09:00] VITALS: BP 165/87
[2017-12-07 09:20] LABS: Basophils # (auto) 0.1 uL; Basophils % (auto) 0.9 % (0.0-2.0); Eosinophils # (auto) 0.2 uL; Hematocrit 31.1 % (41.0-53.0); Hemoglobin 9.9 g/dL (13.5-17.5); Lymphocytes # (auto) 0.7 uL; Lymphocytes % (auto) 11.3 % (10.0-50.0); Mean Corpuscular Hemoglobin 31.1 pg (28.0-32.0); Mean Corpuscular Hgb Conc. 31.9 g/dL (32.0-36.0); Mean Corpuscular Volume 97.4 fL (80.0-100.0); Monocytes # (auto) 0.7 uL; Monocytes % (auto) 11.3 % (0.0-12.0); Neutrophils # (auto) 4.2 uL; Neutrophils % (auto) 72.5 % (37.0-80.0); Platelet Count (auto) 148 10^3/uL (140-450); White Blood Cell 5.8 10^3/uL (4.4-10.8)
[2017-12-07 09:57] LABS: BUN/Creatinine Ratio 5.2; Calcium 7.1 mg/dL (8.5-10.1)
== END 2017-12-07 12:09 | disposition home or self-care (01) ==
LOC: ER 05:58
DX: T82.838A Hemorrhage due to vascular prosthetic devices, implants and grafts, initial encounter (principal); I48.91 Unspecified atrial fibrillation; I25.10 Atherosclerotic heart disease of native coronary artery without angina pectoris; I12.0 Hypertensive chronic kidney disease with stage 5 chronic kidney disease or end stage renal disease; N18.6 End stage renal disease; E78.5 Hyperlipidemia, unspecified; Z90.49 Acquired absence of other specified parts of digestive tract; Z99.2 Dependence on renal dialysis; Z79.82 Long term (current) use of aspirin; Z88.6 Allergy status to analgesic agent
CPT/HCPCS: 36415; 80048; 85025

== ENCOUNTER 2018-05-28 18:30 | Inpatient (IN) | payer MEDICAID ==
[~2018-05-28] VITALS: Ht 172.7 cm; Wt 99.6 kg
[2018-05-28 19:52] LABS: Basophils # (auto) 0 uL; Basophils % (auto) 0.2 % (0.0-2.0); Eosinophils # (auto) 0 uL; Hemoglobin 12.3 g/dL (13.5-17.5); Lymphocytes # (auto) 0.4 uL; Lymphocytes % (auto) 3.9 % (10.0-50.0); Mean Corpuscular Hemoglobin 32.2 pg (28.0-32.0); Mean Corpuscular Hgb Conc. 33.3 g/dL (32.0-36.0); Mean Corpuscular Volume 96.6 fL (80.0-100.0); Monocytes # (auto) 1.1 uL; Monocytes % (auto) 10.4 % (0.0-12.0); Neutrophils # (auto) 8.7 uL; Neutrophils % (auto) 85.5 % (37.0-80.0); Nucleated Red Blood Cells % 0.1 %; Platelet Count (auto) 90 10^3/uL (140-450); Red Blood Cells 3.83 10^6/uL (4.5-5.90); Red Cell Distribution Width 13.5 % (11.8-14.3); White Blood Cell 10.2 10^3/uL (4.4-10.8)
[2018-05-28 20:07] LABS: Albumin 3.2 g/dL (3.4-5.0); Magnesium 2.1 mg/dL (1.6-2.6)
[2018-05-28 20:17] LABS: Total Protein 8.3 g/dL (6.4-8.2)
[2018-05-28 20:21] LABS: BUN/Creatinine Ratio 5.9; Potassium 5.6 mmol/L (3.5-5.1)
[2018-05-28] MEDS ORDERED: SODIUM CHLORIDE 0.9% 500 ML IVB ONE (20:24)
[2018-05-28] MEDS ORDERED: ONDANSETRON HCL 4 MG/2 ML VIAL IV ONE (20:30)
[2018-05-28] MEDS ORDERED: MORPHINE SULF INJ 2 MG/ML SYRINGE 1ML IV ONE (20:30)
[2018-05-28] MEDS ORDERED: AZITHROMYCIN 500MG/ 250ML 250 ML IV ONE (20:45)
[2018-05-28] MEDS ORDERED: InsuLIN REG 1unit/0.01ml Soln (100units/ml) IV ONE (20:45)
[2018-05-28] MEDS ORDERED: ACETAMINOPHEN 325 MG TAB PO ONE (20:45)
[2018-05-28] MEDS ORDERED: CALCIUM CHL 100MG/ML 1,000 MG in D5W 5% 100 ML IV ONE (20:45)
[2018-05-28] MEDS ORDERED: DEXTROSE (50%) 50ML SYRG IV ONE (20:45)
[2018-05-28] MEDS ORDERED: SODIUM POLYSTYRENE SULF 15GM/60ML SUSP PO ONE ×2 (21:15)
[2018-05-28 21:36] LABS: INR 1.14 (0.9-1.15); Partial Thromboplastin Time 34.8 sec (23.78-33.04); Prothrombin Time 12.1 sec (9.27-12.13)
[2018-05-29] VITALS (59 sets, daily range): BP systolic 83–160; BP diastolic 25–82
[2018-05-29] MEDS ORDERED: MORPHINE SULF INJ 2 MG/ML SYRINGE 1ML IV PRN (00:15)
[2018-05-29] MEDS ORDERED: DEXTROSE (50%) 50ML SYRG IV PRN (00:15)
[2018-05-29] MEDS ORDERED: NITROGLYCERIN 0.4 MG SL TAB SL PRN (00:15)
[2018-05-29] MEDS ORDERED: ONDANSETRON HCL 4 MG/2 ML VIAL IV PRN (00:15)
[2018-05-29] MEDS: IBUPROFEN 600 MG TAB PO PRN ×2 (01:50→20:45)
[2018-05-29] MEDS ORDERED: VANCOMYCIN PER PHARMACY 0 MG IV SCH (03:15)
[2018-05-29] MEDS ORDERED: VANCOMYCIN 1GM/250ML 250 ML IV ONE (04:00)
[2018-05-29] MEDS: LORazepam 0.5 MG TAB PO PRN ×2 (04:45→20:45)
[2018-05-29] MEDS: InsuLIN REG 1unit/0.01ml Soln (100units/ml) SC SCH ×4 (07:00→22:00)
[2018-05-29] MEDS: NOREPINEPHRINE 8 MG/250ML KIT 250 ML IV SCH (07:40)
[2018-05-29] MEDS ORDERED: FLUMAZENIL 0.1 MG/ML INJ 10ML MDV IV ONE (07:45)
[2018-05-29] MEDS: CALCIUM ACETATE 667 MG CAP PO SCH ×3 (08:00→18:00)
[2018-05-29] MEDS: ACCU-CHEK COMFORT CURVE STRIP VI SCH ×4 (08:42→22:00)
[2018-05-29] MEDS: GABAPENTIN 300 MG CAP PO SCH ×2 (10:00→20:44)
[2018-05-29] MEDS: CARVEDILOL 3.125 MG TAB PO SCH ×3 (10:00→20:46)
[2018-05-29] MEDS: AMIODARONE HCL 200 MG TAB PO SCH (10:00)
[2018-05-29] MEDS: ASPirin-EC 81 mg tab PO SCH (10:00)
[2018-05-29 10:36] LABS: Albumin 2.8 g/dL (3.4-5.0); BUN/Creatinine Ratio 5.9; Bilirubin, Total 0.9 mg/dL (0.2-1.0); Calcium 7.1 mg/dL (8.5-10.1); Potassium 4.9 mmol/L (3.5-5.1); Total Protein 7.5 g/dL (6.4-8.2)
[2018-05-29] MEDS ORDERED: SODIUM CHL 0.9% 1000 ML BAG XX ONE (14:30)
[2018-05-29] MEDS ORDERED: LORazepam 2MG/ML-1ML VIAL ONE (14:47)
[2018-05-29] MEDS ORDERED: LORazepam 2MG/ML-1ML VIAL IM ONE (14:47)
[2018-05-29] MEDS: ATORVASTATIN 20 MG TAB PO SCH (20:44)
[2018-05-30] VITALS (88 sets, daily range): BP systolic 74–139; BP diastolic 31–87
[2018-05-30] MEDS: NOREPINEPHRINE 8 MG/250ML KIT 250 ML IV SCH ×3 (01:00→21:06)
[2018-05-30 06:17] LABS: Basophils # (auto) 0 uL; Basophils % (auto) 0.3 % (0.0-2.0); Eosinophils # (auto) 0.2 uL; Hematocrit 37.8 % (41.0-53.0); Hemoglobin 12.9 g/dL (13.5-17.5); Lymphocytes # (auto) 0.4 uL; Lymphocytes % (auto) 3.1 % (10.0-50.0); Mean Corpuscular Hemoglobin 32.7 pg (28.0-32.0); Mean Corpuscular Hgb Conc. 34.1 g/dL (32.0-36.0); Mean Corpuscular Volume 95.8 fL (80.0-100.0); Monocytes # (auto) 1.8 uL; Monocytes % (auto) 15.1 % (0.0-12.0); Neutrophils # (auto) 9.3 uL; Neutrophils % (auto) 79.5 % (37.0-80.0); Nucleated Red Blood Cells % 0.1 %; Platelet Count (auto) 134 10^3/uL (140-450); Red Blood Cells 3.95 10^6/uL (4.5-5.90); Red Cell Distribution Width 14.1 % (11.8-14.3); White Blood Cell 11.7 10^3/uL (4.4-10.8)
[2018-05-30] MEDS: ACCU-CHEK COMFORT CURVE STRIP VI SCH ×4 (06:37→21:58)
[2018-05-30] MEDS: InsuLIN REG 1unit/0.01ml Soln (100units/ml) SC SCH ×5 (06:38→22:00)
[2018-05-30 06:42] LABS: Albumin 2.9 g/dL (3.4-5.0); BUN/Creatinine Ratio 5.9; Bilirubin, Total 0.9 mg/dL (0.2-1.0); Calcium 7.4 mg/dL (8.5-10.1); Potassium 4.1 mmol/L (3.5-5.1); Total Protein 8.7 g/dL (6.4-8.2)
[2018-05-30] MEDS: CALCIUM ACETATE 667 MG CAP PO SCH ×3 (08:43→18:24)
[2018-05-30] MEDS: AMIODARONE HCL 200 MG TAB PO SCH (10:01)
[2018-05-30] MEDS: ASPirin-EC 81 mg tab PO SCH (10:01)
[2018-05-30] MEDS: GABAPENTIN 300 MG CAP PO SCH ×2 (10:02→21:58)
[2018-05-30] MEDS ORDERED: VANCOMYCIN 1GM/250ML 250 ML IV ONE (13:00)
[2018-05-30] MEDS: CARVEDILOL 3.125 MG TAB PO SCH (17:26)
[2018-05-30] MEDS ORDERED: SODIUM CHL 0.9% 1000 ML BAG XX ONE (18:15)
[2018-05-30] MEDS: ATORVASTATIN 20 MG TAB PO SCH (21:58)
[2018-05-31] VITALS (84 sets, daily range): BP systolic 58–155; BP diastolic 28–106
[2018-05-31] MEDS: IBUPROFEN 600 MG TAB PO PRN (01:07)
[2018-05-31 05:38] LABS: Albumin 2.4 g/dL (3.4-5.0); Bilirubin, Total 0.6 mg/dL (0.2-1.0); Calcium 6.7 mg/dL (8.5-10.1); Potassium 3.7 mmol/L (3.5-5.1); Total Protein 7.3 g/dL (6.4-8.2)
[2018-05-31] MEDS: InsuLIN REG 1unit/0.01ml Soln (100units/ml) SC SCH ×3 (06:46→18:02)
[2018-05-31] MEDS: ACCU-CHEK COMFORT CURVE STRIP VI SCH ×3 (06:46→18:01)
[2018-05-31 07:26] LABS: Hematocrit 32.9 % (41.0-53.0); Hemoglobin 11.1 g/dL (13.5-17.5); Mean Corpuscular Hemoglobin 32.3 pg (28.0-32.0); Mean Corpuscular Hgb Conc. 33.7 g/dL (32.0-36.0); Mean Corpuscular Volume 95.9 fL (80.0-100.0); Platelet Count (auto) 100 10^3/uL (140-450); Red Blood Cells 3.43 10^6/uL (4.5-5.90); Red Cell Distribution Width 13.8 % (11.8-14.3); White Blood Cell 4.8 10^3/uL (4.4-10.8)
[2018-05-31 07:31] LABS: Band Neutrophils % (manual) 0; Basophils % (manual) 0 (0.0-2.0); Blast Cells 0; Metamyelocytes % 0; Myelocytes % 0; Promyelocytes % 0; Reactive Lymphocytes 0
[2018-05-31 08:09] LABS: Eosinophils % (manual) 1 (0-7); Lymphocytes % (manual) 13 (10.0-50.0); Monocytes % (manual) 12 (0-12)
[2018-05-31] MEDS: CALCIUM ACETATE 667 MG CAP PO SCH ×3 (08:17→18:01)
[2018-05-31] MEDS: GABAPENTIN 300 MG CAP PO SCH ×2 (10:46→22:04)
[2018-05-31] MEDS: ASPirin-EC 81 mg tab PO SCH (10:46)
[2018-05-31] MEDS: AMIODARONE HCL 200 MG TAB PO SCH (10:46)
[2018-05-31] MEDS: CARVEDILOL 3.125 MG TAB PO SCH ×2 (10:48→17:55)
[2018-05-31] MEDS ORDERED: DEXTROSE (50%) 50ML SYRG IV PRN (16:00)
[2018-05-31] MEDS ORDERED: InsuLIN REG 1unit/0.01ml Soln (100units/ml) SC SCH (18:00)
[2018-05-31] MEDS: NOREPINEPHRINE 8 MG/250ML KIT 250 ML IV SCH (19:56)
[2018-05-31] MEDS: traMADol HCL 50 MG TAB PO SCH (22:04)
[2018-05-31] MEDS: ATORVASTATIN 20 MG TAB PO SCH (22:04)
[2018-05-31] MEDS: INSULIN LANTUS (GLARGINE) 1 /0.01ml (100units/ml) SC SCH (22:37)
[2018-06-01] VITALS (93 sets, daily range): BP systolic 78–164; BP diastolic 32–91
[2018-06-01] MEDS: ACCU-CHEK COMFORT CURVE STRIP VI SCH ×4 (03:50→18:07)
[2018-06-01] MEDS: InsuLIN REG 1unit/0.01ml Soln (100units/ml) SC SCH ×4 (03:51→18:06)
[2018-06-01 05:57] LABS: Albumin 2.6 g/dL (3.4-5.0); BUN/Creatinine Ratio 6.8; Bilirubin, Total 0.6 mg/dL (0.2-1.0); Calcium 7.1 mg/dL (8.5-10.1); Total Protein 6.7 g/dL (6.4-8.2)
[2018-06-01 07:10] LABS: Hematocrit 33.3 % (41.0-53.0); Hemoglobin 11.3 g/dL (13.5-17.5); Mean Corpuscular Hemoglobin 32.6 pg (28.0-32.0); Mean Corpuscular Hgb Conc. 33.8 g/dL (32.0-36.0); Mean Corpuscular Volume 96.4 fL (80.0-100.0); Platelet Count (auto) 106 10^3/uL (140-450); Red Blood Cells 3.45 10^6/uL (4.5-5.90); Red Cell Distribution Width 13.9 % (11.8-14.3); White Blood Cell 6.1 10^3/uL (4.4-10.8)
[2018-06-01 07:45] LABS: Basophils % (manual) 0 (0.0-2.0); Blast Cells 0; Metamyelocytes % 0; Myelocytes % 0; Promyelocytes % 0; Reactive Lymphocytes 0
[2018-06-01] MEDS: CARVEDILOL 3.125 MG TAB PO SCH ×2 (08:40→18:00)
[2018-06-01] MEDS: CALCIUM ACETATE 667 MG CAP PO SCH ×3 (08:40→18:06)
[2018-06-01 08:43] LABS: Band Neutrophils % (manual) 2; Eosinophils % (manual) 2 (0-7); Lymphocytes % (manual) 12 (10.0-50.0); Monocytes % (manual) 16 (0-12)
[2018-06-01] MEDS: ASPirin-EC 81 mg tab PO SCH (10:24)
[2018-06-01] MEDS: GABAPENTIN 300 MG CAP PO SCH (10:24)
[2018-06-01] MEDS: AMIODARONE HCL 200 MG TAB PO SCH (10:24)
[2018-06-01] MEDS: traMADol HCL 50 MG TAB PO SCH ×2 (10:24→21:47)
[2018-06-01] MEDS: ALBUMIN 25% 100 ML IV SCH ×2 (10:41→12:18)
[2018-06-01] MEDS ORDERED: InsuLIN REG 1unit/0.01ml Soln (100units/ml) SC ONE (12:30)
[2018-06-01] MEDS ORDERED: hydrOXYzine HCL 10 MG TAB PO PRN (13:45)
[2018-06-01] MEDS: ATORVASTATIN 20 MG TAB PO SCH (21:47)
[2018-06-01] MEDS: INSULIN LANTUS (GLARGINE) 1 /0.01ml (100units/ml) SC SCH (21:48)
[2018-06-02] VITALS (43 sets, daily range): BP systolic 91–135; BP diastolic 39–96
[2018-06-02] MEDS: ACCU-CHEK COMFORT CURVE STRIP VI SCH ×3 (00:40→11:34)
[2018-06-02] MEDS: InsuLIN REG 1unit/0.01ml Soln (100units/ml) SC SCH ×3 (00:40→11:38)
[2018-06-02 05:32] LABS: Calcium 6.9 mg/dL (8.5-10.1); Potassium 4.5 mmol/L (3.5-5.1)
[2018-06-02 05:41] LABS: BUN/Creatinine Ratio 7.5
[2018-06-02] MEDS: NOREPINEPHRINE 8 MG/250ML KIT 250 ML IV SCH (06:17)
[2018-06-02] MEDS: CARVEDILOL 3.125 MG TAB PO SCH (08:00)
[2018-06-02] MEDS: CALCIUM ACETATE 667 MG CAP PO SCH ×2 (08:00→11:37)
[2018-06-02] MEDS: GABAPENTIN 300 MG CAP PO SCH (10:03)
[2018-06-02] MEDS: ASPirin-EC 81 mg tab PO SCH (10:04)
[2018-06-02] MEDS: AMIODARONE HCL 200 MG TAB PO SCH (10:04)
[2018-06-02] MEDS: traMADol HCL 50 MG TAB PO SCH (10:05)
== END 2018-06-02 21:35 | disposition home or self-care (01) | DRG 720 ==
LOC: EDBD 18:30 → ER 18:34 → TELE-EAST 18:35 → DOU IN ICU 05-29 08:04
PROVIDERS: ADMIT Nurse Practitioner Family; ATTEND Internal Medicine
PROC: 5A1D70Z Performance of Urinary Filtration, Intermittent, Less than 6 Hours Per Day (ICD-10-PCS; principal; 2018-05-29)
PROC: 02HV33Z Insertion of Infusion Device into Superior Vena Cava, Percutaneous Approach (ICD-10-PCS; 2018-05-29)
PROC: 5A1D70Z Performance of Urinary Filtration, Intermittent, Less than 6 Hours Per Day (ICD-10-PCS; 2018-06-01)
DX: A41.9 Sepsis, unspecified organism (principal); I13.2 Hypertensive heart and chronic kidney disease with heart failure and with stage 5 chronic kidney disease, or end stage renal disease; E44.0 Moderate protein-calorie malnutrition; J80 Acute respiratory distress syndrome; E11.22 Type 2 diabetes mellitus with diabetic chronic kidney disease; E11.51 Type 2 diabetes mellitus with diabetic peripheral angiopathy without gangrene; E87.5 Hyperkalemia; E11.621 Type 2 diabetes mellitus with foot ulcer; N18.6 End stage renal disease; D63.8 Anemia in other chronic diseases classified elsewhere; I25.10 Atherosclerotic heart disease of native coronary artery without angina pectoris; E87.70 Fluid overload, unspecified; L97.529 Non-pressure chronic ulcer of other part of left foot with unspecified severity; L97.519 Non-pressure chronic ulcer of other part of right foot with unspecified severity; L03.115 Cellulitis of right lower limb; E66.9 Obesity, unspecified; M54.9 Dorsalgia, unspecified; I50.9 Heart failure, unspecified; Z68.33 Body mass index [BMI] 33.0-33.9, adult; Z88.1 Allergy status to other antibiotic agents; Z79.82 Long term (current) use of aspirin; Z79.01 Long term (current) use of anticoagulants; Z80.0 Family history of malignant neoplasm of digestive organs; Z82.49 Family history of ischemic heart disease and other diseases of the circulatory system; Z83.3 Family history of diabetes mellitus; Z85.038 Personal history of other malignant neoplasm of large intestine; Z87.891 Personal history of nicotine dependence; Z91.19 Patient's noncompliance with other medical treatment and regimen; Z99.2 Dependence on renal dialysis; Z89.421 Acquired absence of other right toe(s); Z90.49 Acquired absence of other specified parts of digestive tract; Z91.15 Patient's noncompliance with renal dialysis
CPT/HCPCS: 36415; 36569; 36600; 71045; 73630; 80048; 80053; 80202; 82805; 82962; 83036; 83605; 83735; 84484; 85007; 85025; 85027; 85610; 85730; 87040; 87081; 90935; 93005; 93926; 96365; 96366; 96375; A6257; J1642; J1815; J2405; J7060; P9047

== ENCOUNTER 2018-11-15 10:21 | Emergency (ER) | payer MEDICAID ==
[~2018-11-15] VITALS: Ht 165.1 cm; Wt 94.8 kg
[2018-11-15] MEDS ORDERED: ONDANSETRON HCL 4 MG/2 ML VIAL IM ONE (10:45)
[2018-11-15] MEDS ORDERED: HYDROmorphone HCL 2 MG/ML VL IM ONE (10:45)
[2018-11-15] MEDS ORDERED: IBUPROFEN 800 MG TAB PO ONE (18:15)
[2018-11-15 18:30] VITALS: BP 121/80
== END 2018-11-15 16:36 | disposition home or self-care (01) ==
LOC: EDBD 10:21 → ER 10:39
DX: M54.5 Low back pain (principal); M79.18 Myalgia, other site; E11.22 Type 2 diabetes mellitus with diabetic chronic kidney disease; I12.0 Hypertensive chronic kidney disease with stage 5 chronic kidney disease or end stage renal disease; N18.6 End stage renal disease; E78.5 Hyperlipidemia, unspecified; Z99.2 Dependence on renal dialysis; Z88.6 Allergy status to analgesic agent; Z90.49 Acquired absence of other specified parts of digestive tract; Z87.891 Personal history of nicotine dependence; Z79.82 Long term (current) use of aspirin; Z79.899 Other long term (current) drug therapy
CPT/HCPCS: 72131

== ENCOUNTER 2019-06-13 05:45 | Inpatient (IN) | payer MEDICAID ==
[~2019-06-13] VITALS: Ht 167.6 cm; Wt 96.8 kg
[~2019-06-13 05:45] MED LIST changes: -CLIN1CAP4 PO; +CLIN300C8 PO
[2019-06-13] MEDS ORDERED: ASPirin 81 mg TAB PO ONE (07:00)
[2019-06-13 07:06] LABS: Basophils # (auto) 0.1 uL; Basophils % (auto) 0.8 % (0.0-2.0); Eosinophils # (auto) 0.3 uL; Eosinophils % (auto) 3.4 % (0.0-7.0); Hematocrit 40.3 % (41.0-53.0); Hemoglobin 13.5 g/dL (13.5-17.5); Lymphocytes % (auto) 12.2 % (10.0-50.0); Mean Corpuscular Hemoglobin 31.7 pg (28.0-32.0); Mean Corpuscular Hgb Conc. 33.5 g/dL (32.0-36.0); Mean Corpuscular Volume 94.5 fL (80.0-100.0); Monocytes # (auto) 0.7 uL; Monocytes % (auto) 8.8 % (0.0-12.0); Neutrophils % (auto) 74.8 % (37.0-80.0); Platelet Count (auto) 88 10^3/uL (140-450); Red Blood Cells 4.26 10^6/uL (4.5-5.90); Red Cell Distribution Width 13.2 % (11.8-14.3); White Blood Cell 8.1 10^3/uL (4.4-10.8)
[2019-06-13 07:22] LABS: Albumin 3.5 g/dL (3.4-5.0); BUN/Creatinine Ratio 7.2; Calcium 8.4 mg/dL (8.5-10.1); Magnesium 2.5 mg/dL (1.6-2.6)
[2019-06-13 07:23] LABS: INR 0.99 (0.9-1.15); Partial Thromboplastin Time 30.5 sec (23.64-32.05)
[2019-06-13 07:27] LABS: Bilirubin, Total 0.5 mg/dL (0.2-1.0); Total Protein 8.1 g/dL (6.4-8.2)
[2019-06-13 07:33] LABS: Potassium 5.9 mmol/L (3.5-5.1)
[2019-06-13] MEDS ORDERED: ALBUTEROL SULF 2.5 MG/0.5ML(0.5%) NEB SOLN NEB STA (07:56)
[2019-06-13] MEDS ORDERED: SODIUM ZIRCONIUM CYCL 10 GM PAK PO ONE (08:00)
[2019-06-13] MEDS ORDERED: InsuLIN REG 1unit/0.01ml Soln (100units/ml) IV ONE (08:00)
[2019-06-13] MEDS ORDERED: CALCIUM GLUC 4.65meq/50ml D5AE 50 ML IV ONE (08:00)
[2019-06-13] MEDS ORDERED: DEXTROSE (50%) 50ML SYRG IV ONE (08:00)
[2019-06-13] MEDS ORDERED: SODIUM BICARBONATE 8.4% INJ 50ML SYRINGE IV ONE (08:00)
[2019-06-13] MEDS ORDERED: PIPERACILLIN-TAZOB 3.375GM 100 ML IV ONE (08:00)
[2019-06-13] MEDS ORDERED: NITROGLYCERIN 0.4 MG SL TAB SL PRN (12:45)
[2019-06-13] MEDS ORDERED: PROMETHAZINE HCL 25 MG/ML 1ML IV PRN (12:45)
[2019-06-13] MEDS ORDERED: DEXTROSE (50%) 50ML SYRG IV PRN (12:45)
[2019-06-13] MEDS ORDERED: MORPHINE SULF INJ 2 MG/ML SYRINGE 1ML IV PRN (12:45)
[2019-06-13] MEDS ORDERED: traMADol HCL 50 MG TAB PO PRN (12:45)
[2019-06-13] MEDS: CINACALCET HYDROCHLORIDE 30 MG TAB PO SCH (13:30)
--- NOTE | 2019-06-13 13:37 | NUR ---
Telemetry admit from ER HARRIET CORDOVA admitted to Telemetry unit after SBAR received. Patient oriented to NATY YUNG RN primary RN, unit, room, bed, and unit policies regarding patient care and visiting hours. Patient now on continuous telemetry monitoring, tele box # 64 and telemetry reading on arrival to unit is sinus dl 56. Patient on room air, respirations even and unlabored. Patient denies pain at this time. Wound photos taken to right foot. Patient has wheelchair at bedside. All questions and concerns addressed. Reviewed plan of care with patient, patient verbalized understanding. Bed in low and locked position, call light within reach. Will continue to monitor Q1 hour and PRN.
[2019-06-13 14:00] VITALS: BP 147/69
--- NOTE | 2019-06-13 14:50 | NUR ---
environmental maintenance worker information Patient caregiver Milagros
[2019-06-13] MEDS: DOXYCYCLINE 100 MG TAB/CAP PO SCH ×2 (15:26→22:35)
[2019-06-13] MEDS: hydrALAZINE HCL 25 MG TAB PO SCH ×2 (15:27→22:33)
[2019-06-13] MEDS: SODIUM CHLOR 0.9% PF (SALINE LOCK) 10ML VIAL/SYR IV SCH ×2 (15:28→22:32)
--- NOTE | 2019-06-13 15:38 | NUR ---
MRSA swab collected and sent to lab
[2019-06-13 17:00] VITALS: BP 157/72
[2019-06-13] MEDS: SEVELAMER 800 MG TAB PO SCH (17:45)
[2019-06-13] MEDS: CALCIUM ACETATE 667 MG CAP PO SCH (17:45)
[2019-06-13] MEDS: ACCU-CHEK COMFORT CURVE STRIP VI SCH ×2 (17:46→22:39)
[2019-06-13] MEDS: InsuLIN REG 1unit/0.01ml Soln (100units/ml) SC SCH ×2 (17:47→22:00)
--- NOTE | 2019-06-13 19:26 | NUR ---
Closing Note Report given to rn shift mgr RN. No signs or symptoms of distress noted at this time.
[2019-06-13] MEDS ORDERED: CARVEDILOL 3.125 MG TAB PO SCH (22:00)
[2019-06-13] MEDS: MINOXIDIL 2.5 MG TAB PO SCH (22:00)
--- NOTE | 2019-06-13 22:30 | NUR ---
Pt refuses Reg Insulin per ss orders. AS=[id number]
[2019-06-13] MEDS: DOCUSATE SOD 100 MG CAP PO SCH (22:33)
[2019-06-13] MEDS: AMIODARONE HCL 200 MG TAB PO SCH (22:34)
[2019-06-13] MEDS: APIXABAN 2.5 MG TAB PO SCH (22:35)
[2019-06-13] MEDS: TEMAZEPAM 15 MG CAP PO PRN (22:35)
[2019-06-13] MEDS: traMADol HCL 50 MG TAB PO PRN (22:37)
[2019-06-13 23:42] VITALS: BP 194/85
[2019-06-14] MEDS: MORPHINE SULFATE 4 MG/ML SYR/VIAL IV PRN ×2 (04:35→21:50)
[2019-06-14 05:15] VITALS: BP 143/70
[2019-06-14] MEDS: SODIUM CHLOR 0.9% PF (SALINE LOCK) 10ML VIAL/SYR IV SCH ×3 (06:13→22:09)
[2019-06-14] MEDS: hydrALAZINE HCL 25 MG TAB PO SCH ×4 (06:14→22:10)
[2019-06-14] MEDS: InsuLIN REG 1unit/0.01ml Soln (100units/ml) SC SCH ×4 (06:14→22:00)
--- NOTE | 2019-06-14 06:15 | NUR ---
Pt refusing Reg Insulin per ss orders this am. ZH=[id number].
[2019-06-14] MEDS: ACCU-CHEK COMFORT CURVE STRIP VI SCH ×4 (06:16→22:11)
--- NOTE | 2019-06-14 07:30 | NUR ---
Opening Note Received report from power and recovery shift engineer RN. Patient is awake, alert and oriented x4. No signs or symptoms of distress noted at this time. Patient denies pain at this time. Reviewed plan of care with patient, patient verbalized understanding. Bed in low and locked position, call light within reach. Will continue to monitor Q1 hour and PRN.
[2019-06-14] MEDS: CALCIUM ACETATE 667 MG CAP PO SCH ×3 (08:00→18:07)
--- NOTE | 2019-06-14 08:15 | NUR ---
Dialysis Nurse at bedside
[2019-06-14] MEDS ORDERED: SODIUM CHL 0.9% 1000 ML BAG XX ONE (09:45)
[2019-06-14] MEDS ORDERED: ASPirin-EC 81 mg tab PO SCH (10:00)
[2019-06-14] MEDS: APIXABAN 2.5 MG TAB PO SCH ×2 (10:00→22:11)
[2019-06-14] MEDS ORDERED: GABAPENTIN 100 MG CAP PO SCH (10:00)
[2019-06-14] MEDS: NITROGLYCERIN 0.2MG/HR TOPICAL PATCH TD SCH (10:00)
[2019-06-14] MEDS: AMIODARONE HCL 200 MG TAB PO SCH ×2 (10:00→12:45)
[2019-06-14] MEDS: MINOXIDIL 2.5 MG TAB PO SCH ×2 (10:00→22:00)
[2019-06-14] MEDS ORDERED: CARVEDILOL 3.125 MG TAB PO SCH (10:00)
[2019-06-14] MEDS: traMADol HCL 50 MG TAB PO PRN (10:21)
--- NOTE | 2019-06-14 11:22 | NUR ---
Dialysis Completed Per dialysis nurse patient had 3L removed, blood pressure 127/58, heart rate 56. Dressing to be removed at 1530. Patient tolerated well. Will continue to monitor Q1 hour and PRN.
[2019-06-14] MEDS: DOXYCYCLINE 100 MG TAB/CAP PO SCH ×2 (12:13→22:11)
[2019-06-14] MEDS: PANTOPRAZOLE 40 MG TAB PO SCH (12:13)
[2019-06-14] MEDS: ASPirin 81 mg TAB PO SCH (12:13)
[2019-06-14] MEDS: DOCUSATE SOD 100 MG CAP PO SCH ×2 (12:13→22:10)
[2019-06-14] MEDS: CINACALCET HYDROCHLORIDE 30 MG TAB PO SCH (12:14)
[2019-06-14] MEDS: ATORVASTATIN 20 MG TAB PO SCH (12:14)
[2019-06-14 13:00] VITALS: BP 132/58
--- NOTE | 2019-06-14 16:25 | NUR ---
Spoke with Dr. See New orders received for 3 view x-ray of patients right foot to r/o osteomyelitis. Will implement new orders. Will continue to monitor Q1 hour and PRN.
--- NOTE | 2019-06-14 16:28 | NUR ---
Dr. Dayron Orlando at bedside Updating patient on plan of care. New orders received. Will implement new orders. Will continue to monitor Q1 hour and PRN.
[2019-06-14 16:47] VITALS: BP 160/82
[2019-06-14] MEDS: INSULIN LANTUS (GLARGINE) 1 /0.01ml (100units/ml) SC SCH (17:10)
[2019-06-14] MEDS: SEVELAMER 800 MG TAB PO SCH (17:11)
--- NOTE | 2019-06-14 17:30 | NUR ---
wound culture collected and sent to lab
--- NOTE | 2019-06-14 19:30 | NUR ---
Closing Note Report given to manager reporting RN. No signs or symptoms of distress noted at this time.
[2019-06-14] MEDS: GABAPENTIN 100 MG CAP PO SCH (22:00)
[2019-06-14 22:01] VITALS: BP 194/74
[2019-06-14] MEDS: TEMAZEPAM 15 MG CAP PO PRN (22:12)
[2019-06-15 04:00] VITALS: BP 154/78
--- NOTE | 2019-06-15 05:34 | NUR ---
Endorsed care of pt to Maya RN at this time.
[2019-06-15] MEDS: hydrALAZINE HCL 25 MG TAB PO SCH ×3 (05:53→22:15)
[2019-06-15] MEDS: ACCU-CHEK COMFORT CURVE STRIP VI SCH ×4 (05:58→22:26)
[2019-06-15] MEDS: SODIUM CHLOR 0.9% PF (SALINE LOCK) 10ML VIAL/SYR IV SCH ×3 (05:58→22:15)
[2019-06-15] MEDS: InsuLIN REG 1unit/0.01ml Soln (100units/ml) SC SCH ×4 (06:12→22:00)
[2019-06-15 06:45] LABS: Basophils # (auto) 0 uL; Basophils % (auto) 0.6 % (0.0-2.0); Eosinophils # (auto) 0.1 uL; Eosinophils % (auto) 2.5 % (0.0-7.0); Hematocrit 39.3 % (41.0-53.0); Hemoglobin 13.1 g/dL (13.5-17.5); Lymphocytes # (auto) 0.5 uL; Lymphocytes % (auto) 10.6 % (10.0-50.0); Mean Corpuscular Hemoglobin 31.7 pg (28.0-32.0); Mean Corpuscular Hgb Conc. 33.4 g/dL (32.0-36.0); Monocytes # (auto) 0.6 uL; Monocytes % (auto) 11.5 % (0.0-12.0); Neutrophils # (auto) 3.9 uL; Neutrophils % (auto) 74.8 % (37.0-80.0); Platelet Count (auto) 78 10^3/uL (140-450); Red Blood Cells 4.13 10^6/uL (4.5-5.90); Red Cell Distribution Width 13.2 % (11.8-14.3); White Blood Cell 5.1 10^3/uL (4.4-10.8)
[2019-06-15 07:03] LABS: Albumin 3.5 g/dL (3.4-5.0); Calcium 8.3 mg/dL (8.5-10.1)
[2019-06-15 07:05] LABS: BUN/Creatinine Ratio 6.4
[2019-06-15 07:14] LABS: Bilirubin, Total 0.5 mg/dL (0.2-1.0); Total Protein 7.8 g/dL (6.4-8.2)
--- NOTE | 2019-06-15 07:20 | NUR ---
Opening Shift Note Assumed care of patient, awake and alert. No S/S of distress/SOB or pain. Instructed on POC and to call for assist PRN, will continue to monitor for changes Q1hr and PRN.
[2019-06-15 07:24] LABS: Potassium 5.6 mmol/L (3.5-5.1)
--- NOTE | 2019-06-15 07:37 | NUR ---
Paged Dr Orlando regarding lab values.
--- NOTE | 2019-06-15 08:00 | NUR ---
Dr. See bedside with patient discussing plan of care. Carried out orders as requested.
--- NOTE | 2019-06-15 08:19 | NUR ---
Per Dr. See, MRI of Right foot is with and without contrast. Placed new order per doctors order
[2019-06-15 09:00] VITALS: BP 147/79
[2019-06-15] MEDS: CALCIUM ACETATE 667 MG CAP PO SCH ×3 (09:47→18:00)
[2019-06-15] MEDS: GABAPENTIN 100 MG CAP PO SCH ×2 (09:51→22:08)
[2019-06-15] MEDS: PANTOPRAZOLE 40 MG TAB PO SCH (09:52)
[2019-06-15] MEDS: DOCUSATE SOD 100 MG CAP PO SCH ×2 (09:52→22:08)
[2019-06-15] MEDS: AMIODARONE HCL 200 MG TAB PO SCH (09:53)
[2019-06-15] MEDS: APIXABAN 2.5 MG TAB PO SCH ×2 (09:53→22:08)
[2019-06-15] MEDS: ASPirin 81 mg TAB PO SCH (09:53)
[2019-06-15] MEDS: DOXYCYCLINE 100 MG TAB/CAP PO SCH ×2 (09:53→22:08)
[2019-06-15] MEDS: MINOXIDIL 2.5 MG TAB PO SCH ×2 (09:54→22:24)
[2019-06-15] MEDS: ATORVASTATIN 20 MG TAB PO SCH (09:54)
[2019-06-15] MEDS: NITROGLYCERIN 0.2MG/HR TOPICAL PATCH TD SCH (09:55)
[2019-06-15] MEDS: INSULIN LANTUS (GLARGINE) 1 /0.01ml (100units/ml) SC SCH (09:55)
[2019-06-15] MEDS ORDERED: SODIUM ZIRCONIUM CYCL 10 GM PAK PO ONE (10:00)
--- NOTE | 2019-06-15 10:00 | NUR ---
Dr. Butt bedside with patient discussing plan of care.
--- NOTE | 2019-06-15 10:01 | NUR ---
Placed orders per Dr. Butt.
--- NOTE | 2019-06-15 10:01 | NUR ---
Dr. Butt placed orders due to elevated potassium level
--- NOTE | 2019-06-15 11:18 | NUR ---
Dr. Warner Orlando on unit, he is aware of increased Creatinine and Potassium.
--- NOTE | 2019-06-15 11:21 | NUR ---
Left message for Dr. Villanueva, Dr. Warner Orlando would like to know if patient is cleared for D/C.
--- NOTE | 2019-06-15 11:22 | NUR ---
Talked to Ultrasound, they are able to complete arterial study today. MRI is unavailable for MRI today.
[2019-06-15] MEDS: CINACALCET HYDROCHLORIDE 30 MG TAB PO SCH (12:04)
[2019-06-15 12:12] LABS: BUN/Creatinine Ratio 6.8; Calcium 8.4 mg/dL (8.5-10.1)
[2019-06-15 12:24] LABS: Potassium 6.5 mmol/L (3.5-5.1)
--- NOTE | 2019-06-15 12:25 | NUR ---
Spoke with Dr. Warner Orlando, informed him of new Potassium and Creatinine levels. He told me to call Dr. Butt.
--- NOTE | 2019-06-15 12:32 | NUR ---
Left message for Dr. Butt's answering service to have her call me regarding patients new Potassium and Creatinine levels.
--- NOTE | 2019-06-15 12:43 | NUR ---
Dr. Villanueva on unit, patient is cleared for D/C from cardiac.
[2019-06-15 13:00] VITALS: BP 162/75
[2019-06-15] MEDS: hydrALAZINE HCL 20 MG/ML VL IV PRN ×2 (14:28→18:09)
[2019-06-15 17:00] VITALS: BP 160/71
[2019-06-15] MEDS: SEVELAMER 800 MG TAB PO SCH (18:00)
[2019-06-15] MEDS: Nepro With Carbsteady ButterPecan 8oz Carton PO SCH (18:13)
--- NOTE | 2019-06-15 18:25 | NUR ---
Left message for Dr. Warner Orlando letting him know I have not heard back from Dr. Butt regarding patients Potassium and Creatinine levels. Informed Dr. Orlando on message that patient is nauseous. Asked to call with any further orders.
--- NOTE | 2019-06-15 19:09 | NUR ---
Dr. Warner Orlando returned my call, ordered STAT Potassium lab. Carried out orders.
--- NOTE | 2019-06-15 20:25 | NUR ---
Patient complained of abdominal pain and stated he did not have bowel movement for 2-3 days. Gave early dose of Colace but patient requested a stronger one. Will page hospitalist
[2019-06-15 21:56] VITALS: BP 147/71
--- NOTE | 2019-06-15 22:00 | NUR ---
Spoke to Dr. Andrade and updated on patient's status, order received for 1x Miralax. Acknowledged and read back, will carry out order
[2019-06-15] MEDS ORDERED: POLYETHYLENE GLYCOL 17 GM PWDR PO ONE (22:15)
--- NOTE | 2019-06-16 00:30 | NUR ---
Updated on POC, for possible Stress Test tomorrow, NPO after MN instructed and translated by CESAR Bertrand, patient verbalized understanding, will continue to monitor
[2019-06-16] MEDS: MORPHINE SULFATE 4 MG/ML SYR/VIAL IV PRN (02:35)
[2019-06-16 05:33] VITALS: BP 144/62
[2019-06-16 05:44] LABS: Basophils # (auto) 0 uL; Basophils % (auto) 0.4 % (0.0-2.0); Eosinophils # (auto) 0.2 uL; Eosinophils % (auto) 2.7 % (0.0-7.0); Hematocrit 33.1 % (41.0-53.0); Hemoglobin 11.2 g/dL (13.5-17.5); Lymphocytes # (auto) 0.6 uL; Lymphocytes % (auto) 10.8 % (10.0-50.0); Mean Corpuscular Hemoglobin 31.7 pg (28.0-32.0); Mean Corpuscular Hgb Conc. 33.8 g/dL (32.0-36.0); Monocytes # (auto) 0.7 uL; Monocytes % (auto) 11.9 % (0.0-12.0); Neutrophils # (auto) 4.3 uL; Neutrophils % (auto) 74.2 % (37.0-80.0); Nucleated Red Blood Cells % 0.1 %; Platelet Count (auto) 65 10^3/uL (140-450); Red Blood Cells 3.52 10^6/uL (4.5-5.90); White Blood Cell 5.8 10^3/uL (4.4-10.8)
[2019-06-16 05:55] LABS: Calcium 7.7 mg/dL (8.5-10.1); Potassium 5.5 mmol/L (3.5-5.1)
[2019-06-16 05:58] LABS: BUN/Creatinine Ratio 6.9
[2019-06-16] MEDS: hydrALAZINE HCL 25 MG TAB PO SCH ×3 (06:00→22:00)
[2019-06-16] MEDS: SODIUM CHLOR 0.9% PF (SALINE LOCK) 10ML VIAL/SYR IV SCH ×3 (06:32→22:09)
[2019-06-16] MEDS ORDERED: SODIUM CHL 0.9% 1000 ML BAG XX ONE (07:00)
--- NOTE | 2019-06-16 07:31 | NUR ---
OPENING SHIFT NOTE: PRODUCT TRAINER AT BEDSIDE. PATIENT SPEAKING LOUDLY ABOUT BLOOD SUGAR CONCERN WITH DIALYSIS. PATIENT MOSTLY MAORI SPEAKING, EDUCATED PATIENT ABOUT NPO STATUS. CLEAR LIQUID OKAY TO GIVE BY OUTBOARD MOTOR MECHANIC, SINCE STRESS TEST PLANNED FOR AFTER DIALYSIS. PATIENT REMOVED BOTTLE OF SUGAR OUT OF PERSONAL BAG. PATIENT REFUSED TO GIVE UP SUGAR, AND REMAINED NON-COMPLIANT. LAST ACCUCHECK 163. ATTEMPTED TO CALM PATIENT, AND EDUCATED, UPDATED CARE BOARD, AND INFORMED PRODUCT TRAINER OF PERSONAL EXTENSION TO REACH THIS RN AT ANYTIME. WILL CONTINUE TO MONITOR.
[2019-06-16] MEDS: Nepro With Carbsteady ButterPecan 8oz Carton PO SCH ×2 (08:00→18:05)
[2019-06-16] MEDS ORDERED: ADENOSINE 81 MG in GIVE UN-DILUTED 0 ML IV STA (08:21)
[2019-06-16 09:00] VITALS: BP 172/67
[2019-06-16] MEDS: InsuLIN REG 1unit/0.01ml Soln (100units/ml) SC SCH ×4 (09:20→22:00)
[2019-06-16] MEDS: ACCU-CHEK COMFORT CURVE STRIP VI SCH ×4 (09:20→22:10)
[2019-06-16] MEDS: NITROGLYCERIN 0.2MG/HR TOPICAL PATCH TD SCH (10:56)
[2019-06-16] MEDS: CALCIUM ACETATE 667 MG CAP PO SCH ×3 (10:56→18:05)
[2019-06-16] MEDS: ATORVASTATIN 20 MG TAB PO SCH (11:08)
[2019-06-16] MEDS: AMIODARONE HCL 200 MG TAB PO SCH (11:09)
[2019-06-16] MEDS: GABAPENTIN 100 MG CAP PO SCH ×2 (11:09→22:10)
[2019-06-16] MEDS: PANTOPRAZOLE 40 MG TAB PO SCH (11:09)
[2019-06-16] MEDS: DOXYCYCLINE 100 MG TAB/CAP PO SCH ×2 (11:09→22:10)
[2019-06-16] MEDS: DOCUSATE SOD 100 MG CAP PO SCH ×2 (11:09→22:09)
[2019-06-16] MEDS: APIXABAN 2.5 MG TAB PO SCH ×2 (11:09→22:10)
[2019-06-16] MEDS: MINOXIDIL 2.5 MG TAB PO SCH ×2 (11:10→22:00)
[2019-06-16] MEDS: ASPirin 81 mg TAB PO SCH (11:10)
[2019-06-16] MEDS: INSULIN LANTUS (GLARGINE) 1 /0.01ml (100units/ml) SC SCH (11:11)
[2019-06-16 12:11] VITALS: BP 124/61
--- NOTE | 2019-06-16 12:18 | NUR ---
PATIENT TAKEN DOWN TO STRESS LAB.
--- NOTE | 2019-06-16 12:30 | NUR ---
WOUND CARE NOTE: PATIENT NOTED TO HAVE A CALLOUSED OVER DFU TO THE RIGHT MEDIAL FOOT AT THE # [address] PATIENT HAS SEEN [address] MARTINEZ IN CONSULTATION. HE HAS ORDERS IN PLACE PRIOR TO ANY TREATMENT. CURRENTLY, PATIENT IS DOWN FOR MRI. PATIENT'S WOUND IS NOT OPEN OR DRAINING, LEFT OPEN TO AIR. WOUND IS COVERED WITH CALLOUS/ESCHAR. WILL DEFER ALL RECOMMENDATIONS TO DR. MARTINEZ FOR TREATMENT OF THIS WOUND. NO WOUND CARE MONITORING NEEDED AT THIS TIME. SKIN/WOUND CARE PLAN IMPLEMENTED FOR ARNEL SCORE OF 18.
--- NOTE | 2019-06-16 12:43 | NUR ---
Nutrition Assessment Notes please see attached link for complete assessment Est. Needs ABW 80 [id number] kcal (25-27 kcal/kgBW), 96-104 gms pro (1.2-1.3 gms/kgBW r/t HD). Will continue to monitor pertinent labs and reassess nutrient need prn Addendum: 06/16/19 at [address] Amended: Links added.
[2019-06-16 13:00] VITALS: BP 126/57
--- NOTE | 2019-06-16 13:20 | NUR ---
MRI ON STANDBY: PATIENT BACK FROM STRESS LAB. RENETTA FROM MRI, TO TAKE PATIENT FOR MRI, BUT PATIENT HAS ANKLE BRACELET ON LEFT ANKLE. THIS RN ATTEMPTED TO CONTACT FAMILY LISTED FOR PHONE NUMBER TO REACH CARDIOLOGY NURSE, BUT UNABLE TO REACH ANYONE AT THIS TIME.
--- NOTE | 2019-06-16 14:00 | NUR ---
SPOKE WITH STRINGING MACHINE TENDER SPORT INTERN FOR ANKLE BRACELET REMOVAL. THIS RN TO RECEIVE CALL BACK WITH
[2019-06-16] MEDS: CINACALCET HYDROCHLORIDE 30 MG TAB PO SCH (14:02)
--- NOTE | 2019-06-16 15:15 | NUR ---
TIRE MAKER AT BEDSIDE, PATIENT TAKEN DOWN TO MRI.
--- NOTE | 2019-06-16 15:57 | NUR ---
PATIENT BACK FROM MRI, FIELD HAULER ABLE TO PUT ANKLE BRACELET BACK ON, AND PATIENT IS RESTING IN BED.
[2019-06-16 17:00] VITALS: BP 116/66
[2019-06-16 17:22] LABS: Hepatitis A Ab IgM Negative
[2019-06-16 17:23] LABS: Hepatitis B Core IgM Negative; Hepatitis B Surface Antigen Negative (Negative); Hepatitis C Antibody Negative (Negative)
[2019-06-16] MEDS: SEVELAMER 800 MG TAB PO SCH (18:05)
--- NOTE | 2019-06-16 18:35 | NUR ---
CLOSING SHIFT NOTE: PATIENT RESTING IN BED. SITTING AT SIDE OF THE BED. PATIENT IS BREATHING EVEN AND UNLABORED. EDUCATED ON FALL PRECAUTIONS. PATIENT VERBALIZED UNDERSTANDING. PATIENTS PERSONAL WHEELCHAIR AT BEDSIDE. BED IN LOWEST LOCKED POSITION. WILL ENDORSE CARE TO NOC RN.
--- NOTE | 2019-06-16 19:26 | NUR ---
ENDORSED CARE TO JOSEP HOOD.
--- NOTE | 2019-06-16 19:45 | NUR ---
Opening Shift Note Assumed care of patient, awake and alert. No S/S of distress/SOB or pain. Instructed on POC and to call for assist PRN, patient verbalized understanding, call light within reach, will continue to monitor for changes Q1hr and PRN.
[2019-06-16] MEDS ORDERED: DOX100T PO (21:23)
[2019-06-16 22:00] VITALS: BP 106/52
[2019-06-17 04:50] VITALS: BP 142/95
[2019-06-17] MEDS: SODIUM CHLOR 0.9% PF (SALINE LOCK) 10ML VIAL/SYR IV SCH ×2 (06:10→14:16)
[2019-06-17] MEDS: InsuLIN REG 1unit/0.01ml Soln (100units/ml) SC SCH ×3 (06:11→17:44)
[2019-06-17] MEDS: ACCU-CHEK COMFORT CURVE STRIP VI SCH ×3 (06:11→17:44)
[2019-06-17] MEDS: hydrALAZINE HCL 25 MG TAB PO SCH ×2 (06:11→14:00)
--- NOTE | 2019-06-17 07:48 | NUR ---
OPENING SHIFT NOTE: PATIENT ASLEEP, IN BED BREATHING IS EVEN AND UNLABORED. PERSONAL WHEELCHAIR AT BEDSIDE. PATIENT CARE BOARD UPDATED, WITH PLAN. CALL LIGHT WITHIN REACH. BED IN LOWEST LOCKED POSITION, SIDERAILS UP X 2. WILL CONTINUE TO MONITOR.
[2019-06-17] MEDS: DOCUSATE SOD 100 MG CAP PO SCH (08:12)
[2019-06-17] MEDS: CALCIUM ACETATE 667 MG CAP PO SCH ×2 (08:12→12:00)
[2019-06-17] MEDS: APIXABAN 2.5 MG TAB PO SCH (08:13)
[2019-06-17] MEDS: PANTOPRAZOLE 40 MG TAB PO SCH (08:13)
[2019-06-17] MEDS: AMIODARONE HCL 200 MG TAB PO SCH (08:13)
[2019-06-17] MEDS: GABAPENTIN 100 MG CAP PO SCH (08:14)
[2019-06-17] MEDS: ATORVASTATIN 20 MG TAB PO SCH (08:14)
[2019-06-17] MEDS: DOXYCYCLINE 100 MG TAB/CAP PO SCH (08:15)
[2019-06-17] MEDS: MINOXIDIL 2.5 MG TAB PO SCH (08:15)
[2019-06-17] MEDS: ASPirin 81 mg TAB PO SCH (08:15)
[2019-06-17] MEDS: INSULIN LANTUS (GLARGINE) 1 /0.01ml (100units/ml) SC SCH (08:16)
[2019-06-17] MEDS: NITROGLYCERIN 0.2MG/HR TOPICAL PATCH TD SCH (08:16)
[2019-06-17] MEDS: Nepro With Carbsteady ButterPecan 8oz Carton PO SCH (08:16)
[2019-06-17 09:00] VITALS: BP 141/82
--- NOTE | 2019-06-17 09:50 | NUR ---
D/C Planning Per SS consult for home health for wound care. Advised SANA Watkins to contact Dr. Johanny Hylton regarding clarification on wound care.
--- NOTE | 2019-06-17 09:56 | NUR ---
SPOKE WITH Warner BURROUGHS. THIS RN TO CONTACT DR. VALENCIA FOR WOUND CARE ORDERS FOR D/C PLANNING. ALSO DR. OSBORNE FOR CLEARANCE REGARDING STRESS TEST RESULTS.
--- NOTE | 2019-06-17 10:23 | NUR ---
SPOKE WITH DR. VALENCIA REGARDING D/C PLANNING. PATIENT TO FOLLOW UP IN 2 WEEKS OUTPATIENT, AND IS CLEARED FROM HIS POINT OF VIEW.
[2019-06-17] MEDS: CINACALCET HYDROCHLORIDE 30 MG TAB PO SCH (12:00)
--- NOTE | 2019-06-17 12:20 | NUR ---
PATIENT REFUSING 1200 MEDS. PATIENT STATED HE "DOESN'T WANT TO TAKE ANYTHING ON AN EMPTY STOMACH, AND HE DOESN'T LIKE THE FOOD HERE."
[2019-06-17 13:00] VITALS: BP 132/70
--- NOTE | 2019-06-17 14:50 | NUR ---
HOUSE SUP MADE AWARE OF PATIENTS NEED FOR TAXI VOUCHER FOR DISCHARGE.
--- NOTE | 2019-06-17 14:51 | NUR ---
PATIENT MADE AWARE OF FOLLOW UP APPOINTMENT IN 2 WEEKS AFTER DISCHARGE TO SEE DR. VALENCIA, AND ANY WOUND CARE REGARDING RIGHT FOOT CAN BE MADE BY MD. MECHANIC ASSISTANT AT BEDSIDE UPDATING PATIENT REGARDING QUALIFICATION STATUS FOR RIGHT FOOT WOUND HOME HEALTH CARE.
--- NOTE | 2019-06-17 15:35 | NUR ---
assessment Patient is a 63 year old male who is alert and oriented. Patients cognitive abilities are intact. Prior to admission patient rented a room and functioned independently. Patient informed me he is able to care for his own ADLs. Per patient he will return home to his prior living arrangements post discharge and will need a taxi voucher to home. Patient has a wheelchair for home use. Patient is on service with [facility] on M W at 530am. Patient has no post discharge needs at this time. I informed patient he has a right to speak to a rn social services regarding all care. I informed patient he has a right to participate in any and all discharge planning. Patient does not have a POA and advanced directive. I have offered patient information on POA and advanced directives. I informed the patient the advantages and benefits of having an Advanced Directive. Patient verbalized understanding and agreed to discharge plan. Addendum: 06/17/19 at 1540 by April AMADOR Amended: Links added.
--- NOTE | 2019-06-17 17:04 | NUR ---
MELCHOR TO D/C HOME VIA TELEPHONE MD. MILLER
--- NOTE | 2019-06-17 17:41 | NUR ---
PATIENT DISCHARGED HOME. PATIENT LEFT WITH ALL BELONGINGS, VIA TAXI. EVEN AND UNLABORED RESPIRATIONS NOTED. BOTH IV SITES DISCONTINUED, TELE BOX SENT TO ICU/CARDIO. ALL EDUCATION GIVEN WITH EMPHASIS ON FOLLOW UP APPOINTMENTS GIVEN AND HIGHLIGHTED. PATIENT VERBALIZED UNDERSTANDING.
== END 2019-06-17 17:40 | disposition home health service (06) | DRG 199 ==
LOC: ER 05:45 → EDBD 05:45 → TELE 05:46 → TELE-WESTW 13:37
PROVIDERS: ADMIT Internal Medicine; ATTEND Internal Medicine
PROC: 5A1D70Z Performance of Urinary Filtration, Intermittent, Less than 6 Hours Per Day (ICD-10-PCS; principal; 2019-06-13)
PROC: 5A1D70Z Performance of Urinary Filtration, Intermittent, Less than 6 Hours Per Day (ICD-10-PCS; 2019-06-16)
DX: I16.1 Hypertensive emergency (principal); E11.22 Type 2 diabetes mellitus with diabetic chronic kidney disease; E11.42 Type 2 diabetes mellitus with diabetic polyneuropathy; E87.1 Hypo-osmolality and hyponatremia; L03.115 Cellulitis of right lower limb; I13.2 Hypertensive heart and chronic kidney disease with heart failure and with stage 5 chronic kidney disease, or end stage renal disease; R07.89 Other chest pain; I25.10 Atherosclerotic heart disease of native coronary artery without angina pectoris; E11.621 Type 2 diabetes mellitus with foot ulcer; E87.5 Hyperkalemia; N18.6 End stage renal disease; I48.91 Unspecified atrial fibrillation; E78.5 Hyperlipidemia, unspecified; R00.1 Bradycardia, unspecified; I50.9 Heart failure, unspecified; M19.90 Unspecified osteoarthritis, unspecified site; L97.519 Non-pressure chronic ulcer of other part of right foot with unspecified severity; E11.622 Type 2 diabetes mellitus with other skin ulcer; E66.9 Obesity, unspecified; Z68.34 Body mass index [BMI] 34.0-34.9, adult; Z88.1 Allergy status to other antibiotic agents; Z80.0 Family history of malignant neoplasm of digestive organs; Z99.2 Dependence on renal dialysis; Z82.49 Family history of ischemic heart disease and other diseases of the circulatory system; Z89.429 Acquired absence of other toe(s), unspecified side; Z83.3 Family history of diabetes mellitus; Z90.49 Acquired absence of other specified parts of digestive tract
CPT/HCPCS: 36415; 71045; 73630; 73718; 78452; 80048; 80053; 80074; 82550; 82962; 83036; 83605; 83735; 83880; 84132; 84484; 85025; 85610; 85652; 85730; 87040; 87077; 87081; 87186; 87205; 90935; 93005; 93017; 93926; 94640; 96365; 96368; 96375; G0378; J0153; J0610; J1815; J2543

== ENCOUNTER 2019-09-03 10:26 | Emergency (ER) | payer MEDICAID ==
[~2019-09-03] VITALS: Ht 167.6 cm; Wt 99.8 kg
[~2019-09-03 10:26] MED LIST changes: +CARV3.1240 PO; -CARV6.25 PO; -CLIN300C8 PO; +DOX100T PO
[2019-09-03 11:41] LABS: Basophils # (auto) 0 uL; Basophils % (auto) 0.3 % (0.0-2.0); Eosinophils # (auto) 0.2 uL; Eosinophils % (auto) 2.6 % (0.0-7.0); Hematocrit 38.2 % (41.0-53.0); Hemoglobin 12.6 g/dL (13.5-17.5); Lymphocytes # (auto) 0.6 uL; Lymphocytes % (auto) 8.9 % (10.0-50.0); Mean Corpuscular Hemoglobin 31.5 pg (28.0-32.0); Mean Corpuscular Hgb Conc. 32.9 g/dL (32.0-36.0); Mean Corpuscular Volume 95.9 fL (80.0-100.0); Monocytes # (auto) 0.7 uL; Monocytes % (auto) 11.4 % (0.0-12.0); Neutrophils # (auto) 4.8 uL; Neutrophils % (auto) 76.8 % (37.0-80.0); Nucleated Red Blood Cells % 0.3 %; Platelet Count (auto) 116 10^3/uL (140-450); Red Blood Cells 3.99 10^6/uL (4.5-5.90); White Blood Cell 6.2 10^3/uL (4.4-10.8)
[2019-09-03 12:02] LABS: Calcium 6.8 mg/dL (8.5-10.1)
[2019-09-03 12:06] LABS: BUN/Creatinine Ratio 5.5; Bilirubin, Total 0.3 mg/dL (0.2-1.0); Total Protein 7.2 g/dL (6.4-8.2)
[2019-09-03 12:40] VITALS: BP 130/64
== END 2019-09-03 14:38 | disposition left against medical advice (07) ==
LOC: ER 10:26
DX: R10.32 Left lower quadrant pain (principal); E11.22 Type 2 diabetes mellitus with diabetic chronic kidney disease; I13.2 Hypertensive heart and chronic kidney disease with heart failure and with stage 5 chronic kidney disease, or end stage renal disease; N18.6 End stage renal disease; D63.8 Anemia in other chronic diseases classified elsewhere; I25.10 Atherosclerotic heart disease of native coronary artery without angina pectoris; E78.5 Hyperlipidemia, unspecified; Z99.2 Dependence on renal dialysis; Z88.6 Allergy status to analgesic agent; Z88.1 Allergy status to other antibiotic agents; Z79.899 Other long term (current) drug therapy; Z79.82 Long term (current) use of aspirin; Z90.89 Acquired absence of other organs; Z90.49 Acquired absence of other specified parts of digestive tract
CPT/HCPCS: 36415; 71045; 74176; 80053; 83690; 84484; 85025; 93005

== ENCOUNTER 2019-10-30 14:07 | Inpatient (IN) | payer MEDICAID ==
[~2019-10-30] VITALS: Ht 167.6 cm; Wt 101.8 kg
[2019-10-30 15:29] LABS: Basophils # (auto) 0 uL; Basophils % (auto) 0.3 % (0.0-2.0); Eosinophils # (auto) 0.2 uL; Eosinophils % (auto) 2.4 % (0.0-7.0); Hematocrit 35.1 % (41.0-53.0); Hemoglobin 11.7 g/dL (13.5-17.5); Lymphocytes # (auto) 0.6 uL; Lymphocytes % (auto) 8.9 % (10.0-50.0); Mean Corpuscular Hemoglobin 30.5 pg (28.0-32.0); Mean Corpuscular Hgb Conc. 33.2 g/dL (32.0-36.0); Mean Corpuscular Volume 91.7 fL (80.0-100.0); Monocytes # (auto) 0.6 uL; Monocytes % (auto) 8.7 % (0.0-12.0); Neutrophils # (auto) 5.1 uL; Neutrophils % (auto) 79.7 % (37.0-80.0); Platelet Count (auto) 100 10^3/uL (140-450); Red Blood Cells 3.83 10^6/uL (4.5-5.90); Red Cell Distribution Width 13.6 % (11.8-14.3); White Blood Cell 6.4 10^3/uL (4.4-10.8)
[2019-10-30 15:42] LABS: INR 1.07 (0.9-1.15)
[2019-10-30 15:50] LABS: Albumin 3.2 g/dL (3.4-5.0); Calcium 8.4 mg/dL (8.5-10.1); Potassium 4.4 mmol/L (3.5-5.1)
[2019-10-30 15:58] LABS: BUN/Creatinine Ratio 7.5; Bilirubin, Total 0.4 mg/dL (0.2-1.0); Total Protein 7.3 g/dL (6.4-8.2)
[2019-10-30] MEDS ORDERED: InsuLIN REG 1unit/0.01ml Soln (100units/ml) IV ONE (17:15)
[2019-10-30] MEDS ORDERED: PIPERACILLIN-TAZOB 3.375GM 100 ML IV ONE (17:30)
[2019-10-30] MEDS ORDERED: TEMAZEPAM 15 MG CAP PO PRN (22:30)
[2019-10-30] MEDS ORDERED: ONDANSETRON HCL 4 MG/2 ML VIAL IV PRN (22:30)
[2019-10-30] MEDS ORDERED: DEXTROSE (50%) 50ML SYRG IV PRN (22:30)
[2019-10-30] MEDS: CLINDAMYCIN 600MG IV 50 ML IV SCH (23:00)
[2019-10-30] MEDS: MORPHINE SULF INJ 2 MG/ML SYRINGE 1ML IV PRN (23:00)
[2019-10-31] VITALS (8 sets, daily range): BP systolic 103–155; BP diastolic 56–92
[2019-10-31] MEDS: ACCU-CHEK COMFORT CURVE STRIP VI SCH ×6 (00:11→20:00)
[2019-10-31] MEDS: InsuLIN REG 1unit/0.01ml Soln (100units/ml) SC SCH ×6 (00:11→20:00)
--- NOTE | 2019-10-31 01:49 | NUR ---
MS admit from ER HARRIET CORDOVA admitted to MS after with out SBAR report. Patient oriented to JULIA REEVES RN primary RN, unit, room, bed, and unit policies regarding patient care and visiting hours. Patient weighed by bed scale and encouraged to call if they need something. All questions and concerns addressed, patient verbalized understanding.
--- NOTE | 2019-10-31 01:51 | NUR ---
Assessment Pt is awake, alert, orientated x 4 with no s/s of distress/sob but lower abdominal pain 8/10. Pt has a wound on right plantar foot. Pictures were taken and wound was redressed using sterile technique. Pt has a left arm AV fistula. Bed is in lowest position with side rails up x 2. Bed brakes are locked and call light is with in reach. HOB is 30 degrees. Bed alarm is on. Discussed POC with patient pt verbalized understanding. Instructed patient to call for PRN and assistance.
[2019-10-31] MEDS: traMADol HCL 50 MG TAB PO PRN (03:52)
[2019-10-31] MEDS: CLINDAMYCIN 600MG IV 50 ML IV SCH ×3 (05:36→21:54)
[2019-10-31 05:51] LABS: Basophils # (auto) 0 uL; Basophils % (auto) 0.2 % (0.0-2.0); Eosinophils # (auto) 0.2 uL; Eosinophils % (auto) 2.7 % (0.0-7.0); Hematocrit 35.1 % (41.0-53.0); Hemoglobin 11.9 g/dL (13.5-17.5); Lymphocytes # (auto) 0.7 uL; Lymphocytes % (auto) 11.5 % (10.0-50.0); Mean Corpuscular Hemoglobin 31.3 pg (28.0-32.0); Mean Corpuscular Hgb Conc. 33.8 g/dL (32.0-36.0); Mean Corpuscular Volume 92.7 fL (80.0-100.0); Monocytes # (auto) 0.5 uL; Monocytes % (auto) 8.1 % (0.0-12.0); Neutrophils # (auto) 5.1 uL; Neutrophils % (auto) 77.5 % (37.0-80.0); Nucleated Red Blood Cells % 0.1 %; Platelet Count (auto) 93 10^3/uL (140-450); Red Blood Cells 3.79 10^6/uL (4.5-5.90); Red Cell Distribution Width 13.3 % (11.8-14.3); White Blood Cell 6.5 10^3/uL (4.4-10.8)
[2019-10-31 05:55] LABS: BUN/Creatinine Ratio 7.3; Calcium 8.6 mg/dL (8.5-10.1)
--- NOTE | 2019-10-31 07:31 | NUR ---
CLOSING NOTES ENDORSED CARE TO DAY SHIFT NURSEJIMBO. NO S/S OF DISTRESS NOR SOB.
[2019-10-31] MEDS: CALCIUM ACETATE 667 MG CAP PO SCH ×3 (08:00→18:00)
[2019-10-31] MEDS: SEVELAMER 800 MG TAB PO SCH ×3 (08:53→18:00)
[2019-10-31] MEDS: PANTOPRAZOLE 40 MG TAB PO SCH (08:53)
[2019-10-31] MEDS: AMIODARONE HCL 200 MG TAB PO SCH ×2 (08:54→21:55)
[2019-10-31] MEDS: MINOXIDIL 2.5 MG TAB PO SCH ×2 (08:54→21:56)
[2019-10-31] MEDS: MORPHINE SULF INJ 2 MG/ML SYRINGE 1ML IV PRN (08:55)
[2019-10-31] MEDS: hydrALAZINE HCL 25 MG TAB PO SCH ×2 (09:03→21:55)
[2019-10-31] MEDS: CARVEDILOL 3.125 MG TAB PO SCH ×2 (09:04→21:55)
[2019-10-31] MEDS: APIXABAN 2.5 MG TAB PO SCH ×2 (10:00→21:56)
--- NOTE | 2019-10-31 12:20 | NUR ---
Patient taken down to Pre-op.
--- NOTE | 2019-10-31 12:30 | NUR ---
WOUND CARE NOTE: PATIENT ADMITTED TO [facility] WITH DIAGNOSIS OF LEFT GROIN ABSCESS. CURRENT ARNEL SCORE IS 10. PATIENT IS CURRENTLY IN OR FOR SURGERY, UNABLE TO ASSESS DFU ULCERS TO RIGHT FOOT NOTED UPON ADMIT. WOUNDS WERE PHOTOGRAPHED AT THAT TIME BY BEDSIDE NURSE FOR REFERENCE. SKIN/WOUND CARE PLAN IMPLEMENTED. WILL ATTEMPT TO SEE PATIENT AT LATER TIME, ONCE BACK UP IN ROOM. IN THE MEANTIME, PATIENT WOULD BENEFIT FROM DAILY/PRN DRESSING CHANGES TO RIGHT FOOT WOUNDS, WITH JEREMI/RAJINDER WINSLOW. RECOMMEND: DAILY/PRN DRESSING CHANGES, FREQUENT TURN SCHEDULE Q 2 HOURS, PRN CONDITION PERMITS, WITH PRESSURE REDISTRIBUTION USING PILLOWS/WEDGES, BID/PRN APPLICATION WITH MOISTURE BARRIER CREAM/OPTIFOAM GENTLE SACRAL DRESSING PREVENTATIVE, DIETARY CONSULT FOR DFU ULCERS, CONTINUED MONITORING BY WOUND CARE TEAM. Addendum: 10/31/19 at 1852 by Leticia Negro RN Amended: Links added.
[2019-10-31] MEDS ORDERED: LIDOCAINE 1% HCL (LOCAL ANESTH.) INJ 20ML MDV ONE (12:44)
[2019-10-31] MEDS ORDERED: levoFLOXacin 500MG 100 ML IV ONE (12:52)
[2019-10-31] MEDS ORDERED: HYDROmorphone HCL 2 MG/ML VL ONE (13:10)
[2019-10-31] MEDS ORDERED: HYDROmorphone HCL 2 MG/ML VL IV ONE (13:10)
--- NOTE | 2019-10-31 16:00 | NUR ---
Dressing change to Left Groin site. Patient's dressing was completely saturated with blood. Cleansed with NS and applied 4x4 gauze and secured with micropore tape.Patient tolerated well. Will continue to monitor. No c/o pain, tender to touch. Dr. Gupta aware/informed.
--- NOTE | 2019-10-31 19:16 | NUR ---
Closing Note Patient comfortably sitting up in bed, no c/o pain. No s/s of distress noted/stated. Call light within reach and bed at lowest locked position. Care endorsed to NOC RN.
[2019-10-31] MEDS: ATORVASTATIN 20 MG TAB PO SCH (21:54)
--- NOTE | 2019-10-31 22:00 | NUR ---
Patient surgical site was bleeding through his dressing and even his underwear he had on. Clothing was removed and surgical was not removed since instructions not to remove until tomorrow. Instead reinforced surgical dressing with gauze and tape. Instructed patient to stay in bed and not to touch dressing. Paged Dr. Drake. Awaiting callback.
--- NOTE | 2019-10-31 22:10 | NUR ---
Spoke with Dr. Drake. He was updated on patient's condition. He instructed that reinforcement of dressing is fine and to monitor it.
[2019-11-01] VITALS (7 sets, daily range): BP systolic 130–159; BP diastolic 77–88
[2019-11-01] MEDS: ACCU-CHEK COMFORT CURVE STRIP VI SCH ×7 (00:55→23:47)
[2019-11-01] MEDS: InsuLIN REG 1unit/0.01ml Soln (100units/ml) SC SCH ×7 (00:55→23:47)
--- NOTE | 2019-11-01 02:40 | NUR ---
Cleaned and redressed dressing to groin region. Placed gauze over top of surgical dressing and taped. Right foot wound was redressed. Cleansed with wound cleanser and patted dry with gauze. Placed honey over exposed are of wound and placed tefla overtop. Wrapped a kerlix over top and taped down.
[2019-11-01] MEDS: MORPHINE SULF INJ 2 MG/ML SYRINGE 1ML IV PRN ×2 (03:17→13:39)
[2019-11-01] MEDS: CLINDAMYCIN 600MG IV 50 ML IV SCH ×3 (06:46→21:52)
[2019-11-01] MEDS: CALCIUM ACETATE 667 MG CAP PO SCH ×3 (08:00→17:58)
[2019-11-01] MEDS: PANTOPRAZOLE 40 MG TAB PO SCH (08:29)
[2019-11-01] MEDS: AMIODARONE HCL 200 MG TAB PO SCH ×2 (08:30→22:24)
[2019-11-01] MEDS: SEVELAMER 800 MG TAB PO SCH ×3 (08:30→17:58)
[2019-11-01] MEDS: CARVEDILOL 3.125 MG TAB PO SCH ×2 (08:31→22:22)
[2019-11-01] MEDS: hydrALAZINE HCL 25 MG TAB PO SCH ×2 (08:31→22:24)
[2019-11-01] MEDS: MINOXIDIL 2.5 MG TAB PO SCH ×2 (08:32→22:22)
[2019-11-01] MEDS: APIXABAN 2.5 MG TAB PO SCH ×2 (08:32→21:53)
--- NOTE | 2019-11-01 08:50 | NUR ---
Left groin dressing, completely saturated, Cleansed and redressed dressing to L groin region. Placed 4x4 gauze over top of surgical dressing and secured with Medipore tape. Patient tolerated well. Addendum: 11/01/19 at 1238 by Neisha Flores RN Dressing to Left groin is CDI.
--- NOTE | 2019-11-01 10:40 | NUR ---
WOUND CARE NOTE: IN TO SEE PATIENT AT THIS TIME FOR QUICK WOUND ASSESSMENT OF RIGHT FOOT WOUNDS. PATIENT HAS DFU ULCER/DTI TO RIGHT FOOT, WITH OPEN CHRONIC DFU TO THE RIGHT PLANTAR FOREFOOT, INTACT PURPLE DTI TO RIGHT FOOT INTERDIGITALLY BETWEEN HALLUX AND #2 TOE, AND TO RIGHT LATERAL #5 TOE. ALL WOUNDS REPHOTOGRAPHED AT THIS TIME WITH MEASUREMENTS. ALL WOUND STATS CAN BE FOUND WITHIN WOUND ASSESSMENT INTERVENTION, LINKED WITH THIS NOTE. APPLIED THERAHONEY TELFA TO OPEN DFU, WRAPPED FOOT WITH KERLIX, STOCKINETTE. PATIENT TOLERATED DRESSING CHANGE WELL, NOTING NO PAIN BY PATIENT. RECOMMEND: CONTINUATION WITH ALL WOUND CARE ORDERS PRESCRIBED BY MD. WOUND CARE TEAM WILL CONTINUE TO MONITOR. Addendum: 11/01/19 at 1441 by Leticia Negro RN Amended: Links added.
--- NOTE | 2019-11-01 12:00 | NUR ---
Patient is refusing lunch tray, patient states " i want to be on a renal diet, i cant eat any of this stuff". Left message for MD requesting a diet change. Awaiting call back.
--- NOTE | 2019-11-01 12:00 | NUR ---
Patient is refusing Insulin for blood glucose of 227.
--- NOTE | 2019-11-01 12:33 | NUR ---
CALLED [facility] AND LEFT A MESSAGE WITH SHOAIB. MESSAGE FOR DR. DUKE REGARDING DIALYSIS ORDERS. AWAITING CALL BACK.
--- NOTE | 2019-11-01 14:30 | NUR ---
Paged jewelry salesperson long term care social worker KIM. faxed over information to [facility] regarding social service for wound care. Awaiting response Addendum: 11/01/19 at 1737 by Neisha Flores RN Faxed all requested paperwork to [facility] with provided fax # from Mackenzie long term care social worker.
--- NOTE | 2019-11-01 14:40 | NUR ---
IV removal IV started leaking. IV DC'd with clean sterile technique, catheter fully intact. Pressure dressing applied to site. Patient tolerated well.
--- NOTE | 2019-11-01 15:23 | NUR ---
Weekend special education secretary-I received a page from nurse Hathaway letting me know that this patient is to discharge home today with home health for wound care. I called [facility] [phone] and spoke with Aarti, she said they would be able to accept this patient and can send a nurse out to see him tomorrow 11/02. I asked nurse Hathaway to fax face sheet, H&P and order (including specific wound care order) to [facility] [phone] and to [facility] [phone]. I called [facility] and spoke with dependency case manager Aranza, she provided me with authorization number for [facility] [id number]. I provided nurse Hathaway with phone number for [facility] to give to patient.
--- NOTE | 2019-11-01 15:50 | NUR ---
Attempted IV insertion. no IV obtained.
[2019-11-01 15:51] LABS: Basophils # (auto) 0.1 uL; Basophils % (auto) 0.9 % (0.0-2.0); Eosinophils # (auto) 0.3 uL; Eosinophils % (auto) 4.1 % (0.0-7.0); Hematocrit 38.8 % (41.0-53.0); Hemoglobin 12.9 g/dL (13.5-17.5); Lymphocytes # (auto) 0.6 uL; Lymphocytes % (auto) 9.6 % (10.0-50.0); Mean Corpuscular Hemoglobin 30.7 pg (28.0-32.0); Mean Corpuscular Hgb Conc. 33.3 g/dL (32.0-36.0); Mean Corpuscular Volume 92.3 fL (80.0-100.0); Monocytes # (auto) 0.4 uL; Monocytes % (auto) 6.6 % (0.0-12.0); Neutrophils # (auto) 4.9 uL; Neutrophils % (auto) 78.8 % (37.0-80.0); Nucleated Red Blood Cells % 0.1 %; Platelet Count (auto) 112 10^3/uL (140-450); Red Cell Distribution Width 13.6 % (11.8-14.3); White Blood Cell 6.2 10^3/uL (4.4-10.8)
[2019-11-01 16:08] LABS: BUN/Creatinine Ratio 7.1; Calcium 8.6 mg/dL (8.5-10.1)
--- NOTE | 2019-11-01 16:20 | NUR ---
Dr. Jim aware/informed of critical lab values for potassium .
[2019-11-01] MEDS ORDERED: SODIUM ZIRCONIUM CYCL 10 GM PAK PO ONE (17:00)
--- NOTE | 2019-11-01 17:00 | NUR ---
Pagehakan MOORE regarding critical lab values. Addendum: 11/01/19 at 1724 by Neisha Flores RN No further orders.
[2019-11-01] MEDS: Nepro With Carbsteady ButterPecan 8oz Carton PO SCH (19:00)
[2019-11-01] MEDS: ATORVASTATIN 20 MG TAB PO SCH (22:22)
[2019-11-01] MEDS: traMADol HCL 50 MG TAB PO PRN (23:08)
[2019-11-02] MEDS: InsuLIN REG 1unit/0.01ml Soln (100units/ml) SC SCH ×3 (04:00→12:00)
[2019-11-02] MEDS: ACCU-CHEK COMFORT CURVE STRIP VI SCH ×3 (04:18→12:00)
[2019-11-02 05:00] VITALS: BP 132/72
[2019-11-02] MEDS: CLINDAMYCIN 600MG IV 50 ML IV SCH (06:00)
[2019-11-02 08:00] VITALS: BP 145/82
--- NOTE | 2019-11-02 08:00 | NUR ---
Opening Shift Note Assumed care of patient,comfortably sitting in bed, awake and alert. No S/S of distress/SOB or pain. Instructed on POC and to call for assist PRN. Bed at lowest locked position and call light within reach. Will continue to monitor for changes Q1hr and PRN.
[2019-11-02 09:00] VITALS: BP 145/82
--- NOTE | 2019-11-02 09:10 | NUR ---
[facility] stated " we are not accepting this patient here anymore, he was very disrespectful to us last time" . Will page radiation protection engineer social work case manager. Addendum: 11/02/19 at 1023 by Neisha Flores RN Video Game Designer Kim is going to call other agencies. Addendum: 11/02/19 at 1049 by Neisha Flores RN [facility] has agreed to take patient for home health. A nurse will be available Sunday11/03/19 . Faxed requested paperwork to [phone].
[2019-11-02] MEDS: MINOXIDIL 2.5 MG TAB PO SCH (10:00)
[2019-11-02] MEDS: AMIODARONE HCL 200 MG TAB PO SCH (10:00)
[2019-11-02] MEDS: CARVEDILOL 3.125 MG TAB PO SCH (10:00)
[2019-11-02] MEDS: PANTOPRAZOLE 40 MG TAB PO SCH (10:00)
[2019-11-02] MEDS: APIXABAN 2.5 MG TAB PO SCH (10:00)
[2019-11-02] MEDS: hydrALAZINE HCL 25 MG TAB PO SCH (10:00)
[2019-11-02] MEDS: CALCIUM ACETATE 667 MG CAP PO SCH ×2 (10:03→12:52)
[2019-11-02] MEDS: SEVELAMER 800 MG TAB PO SCH ×2 (10:04→12:51)
[2019-11-02] MEDS: traMADol HCL 50 MG TAB PO PRN (11:34)
--- NOTE | 2019-11-02 12:00 | NUR ---
Dressing to left groin site cleansed and changed per MD orders.
--- NOTE | 2019-11-02 12:24 | NUR ---
Weekend inbound sales consultant-I received a page from Nurse Mag letting me know [facility] I called [facility] [phone] and spoke with Virgie, she said they can accept this patient and see them tomorrow. I had nurse Mag fax order to [facility], and I provided her with phone number to give to patient. I called Aranza with [facility]-she will re-direct the authorization to [facility].
[2019-11-02 13:00] VITALS: BP 84/50
[2019-11-02] MEDS: Nepro With Carbsteady ButterPecan 8oz Carton PO SCH ×2 (13:36→13:37)
--- NOTE | 2019-11-02 14:00 | NUR ---
Patient refused wound picture to the right foot. patient refused pictures taken of the left groin incision.
--- NOTE | 2019-11-02 14:13 | NUR ---
Discharge instructions given as ordered. Encourage to follow up with PMD as instructed. All questions and concerns addressed. Patient verbalized understanding. Medication reconciliation form completed and copy given to patient. IV removed with catheter intact, pressure dressing applied. Patient taken to vehicle via wheelchair with all personal belongings, accompanied by staff No distress noted at time of departure.
--- NOTE | 2019-11-02 14:27 | NUR ---
Nutrition Assessment Notes Please refer to link for full assessment notes. Est energy needs: 9782-2045 kcals (14-18 kcal/kgBW) Est protein needs: 66-72 gms/day (1.1-1.2 gm/kgAdjBW) d/t HD Will continue to monitor and reassess prn. Addendum: 11/02/19 at [address] Amended: Links added. Addendum: 11/02/19 at [address] Additional Recommendation Consider a daily MVI with 500mg VitC BID
== END 2019-11-02 14:15 | disposition home or self-care (01) | DRG 952 ==
LOC: ER 14:07 → OVERFLOW 14:08 → WEST WING 10-31 01:45
PROVIDERS: ADMIT Nurse Practitioner; ATTEND Hospitalist
PROC: 0Y960ZX Drainage of Left Inguinal Region, Open Approach, Diagnostic (ICD-10-PCS; 2019-10-31)
PROC: 5A1D70Z Performance of Urinary Filtration, Intermittent, Less than 6 Hours Per Day (ICD-10-PCS; principal; 2019-11-02)
DX: L02.214 Cutaneous abscess of groin (principal); I13.2 Hypertensive heart and chronic kidney disease with heart failure and with stage 5 chronic kidney disease, or end stage renal disease; E11.22 Type 2 diabetes mellitus with diabetic chronic kidney disease; N18.6 End stage renal disease; E11.65 Type 2 diabetes mellitus with hyperglycemia; D63.8 Anemia in other chronic diseases classified elsewhere; I25.10 Atherosclerotic heart disease of native coronary artery without angina pectoris; I50.9 Heart failure, unspecified; E78.5 Hyperlipidemia, unspecified; Z88.8 Allergy status to other drugs, medicaments and biological substances; Z88.1 Allergy status to other antibiotic agents; Z79.899 Other long term (current) drug therapy; Z79.82 Long term (current) use of aspirin; Z90.49 Acquired absence of other specified parts of digestive tract; Z99.2 Dependence on renal dialysis; Z83.3 Family history of diabetes mellitus; Z82.49 Family history of ischemic heart disease and other diseases of the circulatory system; Z80.0 Family history of malignant neoplasm of digestive organs; Z79.4 Long term (current) use of insulin
CPT/HCPCS: 36415; 71045; 74176; 80048; 80053; 82962; 83880; 84484; 85025; 85610; 85730; 87070; 87075; 87076; 87081; 87205; 90935; 93005; 96365; 96366; 96375; G0378; J1815; J1956; J2001; J2405; J2543; J3490

== ENCOUNTER → 2019-12-02 | Emergency (ER) | payer MEDICAID ==
[~2019-12-02] VITALS: Ht 167.6 cm; Wt 96.7 kg
[2019-12-02 10:04] LABS: Basophils # (auto) 0 10 ^3/uL (0-0.2); Basophils % (auto) 0.5 % (0.0-2.0); Eosinophils # (auto) 0.2 10 ^3/uL (0-0.8); Eosinophils % (auto) 3.3 % (0.0-7.0); Hematocrit 40.2 % (41.0-53.0); Hemoglobin 13.7 g/dL (13.5-17.5); Lymphocytes # (auto) 0.7 10 ^3/uL (0.4-5.4); Lymphocytes % (auto) 10.4 % (10.0-50.0); Mean Corpuscular Hemoglobin 31.4 pg (28.0-32.0); Mean Corpuscular Volume 92.3 fL (80.0-100.0); Monocytes # (auto) 0.7 10 ^3/uL (0-1.3); Monocytes % (auto) 10.3 % (0.0-12.0); Neutrophils # (auto) 5.2 10 ^3/uL (1.6-8.6); Neutrophils % (auto) 75.5 % (37.0-80.0); Nucleated Red Blood Cells % 0.1 %; Platelet Count (auto) 119 10^3/uL (140-450); Red Blood Cells 4.35 10^6/uL (4.5-5.90); Red Cell Distribution Width 14.4 % (11.8-14.3); White Blood Cell 6.9 10^3/uL (4.4-10.8)
[2019-12-02 10:11] LABS: Albumin 3.5 g/dL (3.4-5.0); Calcium 7.9 mg/dL (8.5-10.1); Potassium 4.2 mmol/L (3.5-5.1)
[2019-12-02 10:17] LABS: BUN/Creatinine Ratio 8.5; Bilirubin, Total 0.6 mg/dL (0.2-1.0); Total Protein 8.5 g/dL (6.4-8.2)
[2019-12-02 11:52] VITALS: BP 98/57
== END | disposition home or self-care (01) ==
LOC: ER 09:07
DX: R51 Headache (principal); I13.2 Hypertensive heart and chronic kidney disease with heart failure and with stage 5 chronic kidney disease, or end stage renal disease; E11.22 Type 2 diabetes mellitus with diabetic chronic kidney disease; N18.6 End stage renal disease; I50.9 Heart failure, unspecified; Z99.2 Dependence on renal dialysis; E78.5 Hyperlipidemia, unspecified
CPT/HCPCS: 36415; 70450; 71045; 80053; 84484; 85025; 93005

== ENCOUNTER 2020-01-09 11:53 | Inpatient (IN) | payer MEDICAID ==
[~2020-01-09] VITALS: Ht 167.6 cm; Wt 98.1 kg
[2020-01-09] MEDS ORDERED: SODIUM CHLORIDE 0.9% 500 ML IV ONE (12:16)
[2020-01-09] MEDS ORDERED: CLINDAMYCIN 600MG IV 50 ML IV ONE (12:30)
[2020-01-09 12:58] LABS: Basophils # (auto) 0 10 ^3/uL (0-0.2); Basophils % (auto) 0.5 % (0.0-2.0); Eosinophils # (auto) 0.2 10 ^3/uL (0-0.8); Eosinophils % (auto) 2.3 % (0.0-7.0); Hematocrit 38.5 % (41.0-53.0); Hemoglobin 12.6 g/dL (13.5-17.5); Lymphocytes # (auto) 0.6 10 ^3/uL (0.4-5.4); Lymphocytes % (auto) 9.2 % (10.0-50.0); Mean Corpuscular Hemoglobin 30.5 pg (28.0-32.0); Mean Corpuscular Hgb Conc. 32.9 g/dL (32.0-36.0); Monocytes # (auto) 0.9 10 ^3/uL (0-1.3); Monocytes % (auto) 12.2 % (0.0-12.0); Neutrophils # (auto) 5.3 10 ^3/uL (1.6-8.6); Neutrophils % (auto) 75.8 % (37.0-80.0); Nucleated Red Blood Cells % 0.1 %; Platelet Count (auto) 125 10^3/uL (140-450); Red Blood Cells 4.14 10^6/uL (4.5-5.90); Red Cell Distribution Width 13.6 % (11.8-14.3)
[2020-01-09 13:16] LABS: Albumin 3.2 g/dL (3.4-5.0); BUN/Creatinine Ratio 5.2; Calcium 7.7 mg/dL (8.5-10.1); Potassium 4.1 mmol/L (3.5-5.1)
[2020-01-09 13:19] LABS: Bilirubin, Total 0.6 mg/dL (0.2-1.0); Total Protein 7.8 g/dL (6.4-8.2)
[2020-01-09] MEDS ORDERED: TEMAZEPAM 15 MG CAP PO PRN (14:15)
[2020-01-09] MEDS ORDERED: MORPHINE SULF INJ 2 MG/ML SYRINGE 1ML IV PRN (14:15)
[2020-01-09] MEDS ORDERED: PROMETHAZINE HCL 25 MG/ML 1ML IV PRN (14:15)
[2020-01-09] MEDS ORDERED: DEXTROSE (50%) 50ML SYRG IV PRN (14:15)
[2020-01-09] MEDS ORDERED: NITROGLYCERIN 0.4 MG SL TAB SL PRN (14:15)
[2020-01-09] MEDS ORDERED: levoFLOXacin 250MG 50 ML IV ONE (14:15)
[2020-01-09] MEDS ORDERED: traMADol HCL 50 MG TAB PO PRN (14:15)
[2020-01-09 14:34] VITALS: BP 99/66
[2020-01-09 16:21] VITALS: BP 123/80
[2020-01-09] MEDS: ACCU-CHEK COMFORT CURVE STRIP VI SCH ×2 (17:18→23:12)
[2020-01-09] MEDS: InsuLIN REG 1unit/0.01ml Soln (100units/ml) SC SCH ×2 (17:32→22:00)
[2020-01-09] MEDS: CALCIUM ACETATE 667 MG CAP PO SCH (18:30)
[2020-01-09 22:00] VITALS: BP 133/75
[2020-01-09] MEDS ORDERED: HYDRALAZINE HCL 25 MG PO SCH (22:00)
[2020-01-09] MEDS: MINOXIDIL 2.5 MG TAB PO SCH (22:00)
[2020-01-09] MEDS: hydrALAZINE HCL 25 MG TAB PO SCH (23:09)
[2020-01-09] MEDS: APIXABAN 2.5 MG TAB PO SCH (23:10)
[2020-01-09] MEDS: AMIODARONE HCL 200 MG TAB PO SCH (23:10)
[2020-01-09] MEDS: CARVEDILOL 3.125 MG TAB PO SCH (23:10)
[2020-01-09] MEDS: DOCUSATE SOD 100 MG CAP PO SCH (23:10)
[2020-01-09] MEDS: GABAPENTIN 100 MG CAP PO SCH (23:11)
[2020-01-09] MEDS: CLINDAMYCIN 600MG IV 50 ML IV SCH (23:11)
[2020-01-09] MEDS: FAMOTIDINE 20 MG TAB PO SCH (23:33)
[2020-01-10 05:00] VITALS: BP 117/75
[2020-01-10] MEDS: hydrALAZINE HCL 25 MG TAB PO SCH ×2 (05:49→14:21)
[2020-01-10] MEDS: CLINDAMYCIN 600MG IV 50 ML IV SCH ×3 (05:49→22:00)
[2020-01-10] MEDS: InsuLIN REG 1unit/0.01ml Soln (100units/ml) SC SCH ×4 (07:00→23:00)
[2020-01-10] MEDS: ACCU-CHEK COMFORT CURVE STRIP VI SCH ×4 (07:04→22:00)
[2020-01-10] MEDS: SEVELAMER 800 MG TAB PO SCH (08:13)
[2020-01-10] MEDS: CALCIUM ACETATE 667 MG CAP PO SCH ×3 (08:14→17:58)
[2020-01-10 09:00] VITALS: BP 132/84
[2020-01-10] MEDS: MINOXIDIL 2.5 MG TAB PO SCH (10:00)
[2020-01-10] MEDS: CINACALCET HYDROCHLORIDE 30 MG TAB PO SCH (10:00)
[2020-01-10] MEDS ORDERED: levoFLOXacin 250MG 50 ML IV SCH (10:00)
[2020-01-10] MEDS ORDERED: ASPirin-EC 81 mg tab PO SCH (10:00)
[2020-01-10] MEDS: APIXABAN 2.5 MG TAB PO SCH (10:24)
[2020-01-10] MEDS: ATORVASTATIN 20 MG TAB PO SCH (10:24)
[2020-01-10] MEDS: PANTOPRAZOLE 40 MG TAB PO SCH (10:24)
[2020-01-10] MEDS: FAMOTIDINE 20 MG TAB PO SCH (10:24)
[2020-01-10] MEDS: DOCUSATE SOD 100 MG CAP PO SCH (10:24)
[2020-01-10] MEDS: AMIODARONE HCL 200 MG TAB PO SCH ×2 (10:25→22:00)
[2020-01-10] MEDS: CARVEDILOL 3.125 MG TAB PO SCH (10:26)
[2020-01-10 13:00] VITALS: BP 124/79
[2020-01-10 17:00] VITALS: BP 148/78
[2020-01-10 22:02] VITALS: BP 154/91
[2020-01-11] MEDS: GABAPENTIN 100 MG CAP PO SCH ×2 (00:32→21:58)
[2020-01-11] MEDS: MINOXIDIL 2.5 MG TAB PO SCH ×3 (00:32→22:00)
[2020-01-11] MEDS: hydrALAZINE HCL 25 MG TAB PO SCH ×4 (00:33→23:18)
[2020-01-11] MEDS: DOCUSATE SOD 100 MG CAP PO SCH ×3 (00:33→21:58)
[2020-01-11] MEDS: CARVEDILOL 3.125 MG TAB PO SCH ×3 (00:35→22:02)
[2020-01-11] MEDS: MORPHINE SULF INJ 2 MG/ML SYRINGE 1ML IV PRN ×2 (00:39→14:39)
[2020-01-11 05:00] VITALS: BP 129/75
[2020-01-11 06:27] LABS: Basophils # (auto) 0 10 ^3/uL (0-0.2); Basophils % (auto) 0.5 % (0.0-2.0); Eosinophils # (auto) 0.3 10 ^3/uL (0-0.8); Eosinophils % (auto) 4.3 % (0.0-7.0); Hematocrit 39.1 % (41.0-53.0); Hemoglobin 12.9 g/dL (13.5-17.5); Lymphocytes # (auto) 0.8 10 ^3/uL (0.4-5.4); Lymphocytes % (auto) 13.9 % (10.0-50.0); Mean Corpuscular Hemoglobin 30.9 pg (28.0-32.0); Mean Corpuscular Volume 93.7 fL (80.0-100.0); Monocytes # (auto) 0.6 10 ^3/uL (0-1.3); Monocytes % (auto) 9.6 % (0.0-12.0); Neutrophils # (auto) 4.3 10 ^3/uL (1.6-8.6); Neutrophils % (auto) 71.7 % (37.0-80.0); Platelet Count (auto) 110 10^3/uL (140-450); Red Blood Cells 4.18 10^6/uL (4.5-5.90); Red Cell Distribution Width 13.5 % (11.8-14.3); White Blood Cell 6.1 10^3/uL (4.4-10.8)
[2020-01-11] MEDS: CLINDAMYCIN 600MG IV 50 ML IV SCH ×3 (06:34→21:57)
[2020-01-11] MEDS: ACCU-CHEK COMFORT CURVE STRIP VI SCH ×4 (06:34→22:03)
[2020-01-11] MEDS: InsuLIN REG 1unit/0.01ml Soln (100units/ml) SC SCH ×4 (06:36→22:00)
[2020-01-11 06:43] LABS: Calcium 7.8 mg/dL (8.5-10.1)
[2020-01-11] MEDS: SEVELAMER 800 MG TAB PO SCH (08:00)
[2020-01-11] MEDS: CALCIUM ACETATE 667 MG CAP PO SCH ×3 (08:23→17:30)
[2020-01-11 09:00] VITALS: BP 126/76
[2020-01-11] MEDS ORDERED: levoFLOXacin 250MG 50 ML IV SCH (09:00)
[2020-01-11] MEDS ORDERED: SODIUM CHL 0.9% 1000 ML BAG XX ONE (09:30)
[2020-01-11] MEDS: traMADol HCL 50 MG TAB PO PRN ×2 (09:34→21:59)
[2020-01-11] MEDS ORDERED: FAMOTIDINE 20 MG TAB PO SCH (10:00)
[2020-01-11] MEDS: CINACALCET HYDROCHLORIDE 30 MG TAB PO SCH (10:00)
[2020-01-11] MEDS ORDERED: GOLYTELY 4L KIT PO ONE (11:00)
[2020-01-11 13:00] VITALS: BP 121/64
[2020-01-11] MEDS: AMIODARONE HCL 200 MG TAB PO SCH ×2 (13:01→22:05)
[2020-01-11] MEDS: ATORVASTATIN 20 MG TAB PO SCH (13:03)
[2020-01-11] MEDS: PANTOPRAZOLE 40 MG TAB PO SCH (13:04)
[2020-01-11] MEDS ORDERED: DAKINS QUARTER STR 0.125% (NaHypochlorite) 473 ML TOPICAL SOL TOP ONE (13:45)
[2020-01-11 17:26] VITALS: BP 124/73
[2020-01-11 22:00] VITALS: BP 124/77
[2020-01-11] MEDS: DAKINS QUARTER STR 0.125% (NaHypochlorite) 473 ML TOPICAL SOL TOP SCH (22:04)
[2020-01-12 06:00] VITALS: BP 121/76
[2020-01-12] MEDS: hydrALAZINE HCL 25 MG TAB PO SCH ×2 (06:54→14:17)
[2020-01-12] MEDS: CLINDAMYCIN 600MG IV 50 ML IV SCH ×2 (06:54→14:16)
[2020-01-12] MEDS: InsuLIN REG 1unit/0.01ml Soln (100units/ml) SC SCH ×3 (06:55→17:00)
[2020-01-12] MEDS: ACCU-CHEK COMFORT CURVE STRIP VI SCH ×3 (06:55→18:58)
[2020-01-12] MEDS: SEVELAMER 800 MG TAB PO SCH (08:00)
[2020-01-12] MEDS: CALCIUM ACETATE 667 MG CAP PO SCH ×3 (08:00→18:00)
[2020-01-12 09:07] VITALS: BP 154/82
[2020-01-12] MEDS: DOCUSATE SOD 100 MG CAP PO SCH (10:01)
[2020-01-12] MEDS: CINACALCET HYDROCHLORIDE 30 MG TAB PO SCH (10:01)
[2020-01-12] MEDS: PANTOPRAZOLE 40 MG TAB PO SCH (10:01)
[2020-01-12] MEDS: ATORVASTATIN 20 MG TAB PO SCH (10:01)
[2020-01-12] MEDS: CARVEDILOL 3.125 MG TAB PO SCH (10:02)
[2020-01-12] MEDS: DAKINS QUARTER STR 0.125% (NaHypochlorite) 473 ML TOPICAL SOL TOP SCH (10:02)
[2020-01-12] MEDS: MINOXIDIL 2.5 MG TAB PO SCH (10:02)
[2020-01-12] MEDS: AMIODARONE HCL 200 MG TAB PO SCH (10:02)
[2020-01-12] MEDS ORDERED: DOX100T PO (12:41)
[2020-01-12 13:00] VITALS: BP 151/82
[2020-01-12] MEDS: traMADol HCL 50 MG TAB PO PRN (14:32)
[2020-01-12 16:04] VITALS: BP 151/82
[2020-01-12 17:00] VITALS: BP 155/77
== END 2020-01-12 19:20 | disposition home health service (06) | DRG 380 ==
LOC: ER 11:53 → TELE 11:54 → TELE-EAST 15:45 → TELE-CENTR 19:39
PROVIDERS: ADMIT Internal Medicine; ATTEND Hospitalist
PROC: 0JBQ0ZZ Excision of Right Foot Subcutaneous Tissue and Fascia, Open Approach (ICD-10-PCS; 2020-01-09)
PROC: 5A1D70Z Performance of Urinary Filtration, Intermittent, Less than 6 Hours Per Day (ICD-10-PCS; principal; 2020-01-11)
DX: E11.621 Type 2 diabetes mellitus with foot ulcer (principal); L97.511 Non-pressure chronic ulcer of other part of right foot limited to breakdown of skin; I13.2 Hypertensive heart and chronic kidney disease with heart failure and with stage 5 chronic kidney disease, or end stage renal disease; E11.22 Type 2 diabetes mellitus with diabetic chronic kidney disease; E11.40 Type 2 diabetes mellitus with diabetic neuropathy, unspecified; L03.115 Cellulitis of right lower limb; E83.51 Hypocalcemia; N18.6 End stage renal disease; E11.65 Type 2 diabetes mellitus with hyperglycemia; Z99.2 Dependence on renal dialysis; D63.1 Anemia in chronic kidney disease; L02.619 Cutaneous abscess of unspecified foot; E66.9 Obesity, unspecified; E78.5 Hyperlipidemia, unspecified; E11.51 Type 2 diabetes mellitus with diabetic peripheral angiopathy without gangrene; I25.10 Atherosclerotic heart disease of native coronary artery without angina pectoris; Z65.3 Problems related to other legal circumstances; Z79.4 Long term (current) use of insulin; Z80.0 Family history of malignant neoplasm of digestive organs; Z82.49 Family history of ischemic heart disease and other diseases of the circulatory system; Z85.038 Personal history of other malignant neoplasm of large intestine; Z83.3 Family history of diabetes mellitus; Z91.11 Patient's noncompliance with dietary regimen; Z91.19 Patient's noncompliance with other medical treatment and regimen; Z88.1 Allergy status to other antibiotic agents; Z90.49 Acquired absence of other specified parts of digestive tract; Z68.33 Body mass index [BMI] 33.0-33.9, adult; K74.60 Unspecified cirrhosis of liver; I50.30 Unspecified diastolic (congestive) heart failure
CPT/HCPCS: 36415; 73700; 80048; 80053; 82962; 83036; 85025; 85652; 87040; 87077; 87186; 87205; 90935; G0378; J1642; J1815; J3490

== ENCOUNTER 2020-01-18 03:04 | Inpatient (IN) | payer MEDICAID ==
[~2020-01-18] VITALS: Ht 167.6 cm; Wt 98.8 kg
[2020-01-18] MEDS ORDERED: ONDANSETRON HCL 4 MG/2 ML VIAL IV ONE (04:00)
[2020-01-18] MEDS ORDERED: MORPHINE SULFATE 4 MG/ML SYR/VIAL IV ONE (04:00)
[2020-01-18 04:53] LABS: Basophils # (auto) 0 10 ^3/uL (0-0.2); Basophils % (auto) 0.6 % (0.0-2.0); Eosinophils # (auto) 0.2 10 ^3/uL (0-0.8); Eosinophils % (auto) 3.1 % (0.0-7.0); Hematocrit 36.6 % (41.0-53.0); Lymphocytes # (auto) 0.8 10 ^3/uL (0.4-5.4); Lymphocytes % (auto) 12.6 % (10.0-50.0); Mean Corpuscular Hemoglobin 30.1 pg (28.0-32.0); Mean Corpuscular Hgb Conc. 32.7 g/dL (32.0-36.0); Monocytes # (auto) 0.8 10 ^3/uL (0-1.3); Neutrophils # (auto) 4.4 10 ^3/uL (1.6-8.6); Neutrophils % (auto) 70.7 % (37.0-80.0); Nucleated Red Blood Cells % 0.1 %; Platelet Count (auto) 115 10^3/uL (140-450); Red Blood Cells 3.97 10^6/uL (4.5-5.90); White Blood Cell 6.2 10^3/uL (4.4-10.8)
[2020-01-18 05:11] LABS: Albumin 3.1 g/dL (3.4-5.0); BUN/Creatinine Ratio 5.9; Calcium 7.7 mg/dL (8.5-10.1); Potassium 3.8 mmol/L (3.5-5.1)
[2020-01-18 05:13] LABS: Bilirubin, Total 0.4 mg/dL (0.2-1.0); Total Protein 7.5 g/dL (6.4-8.2)
[2020-01-18] MEDS ORDERED: NITROGLYCERIN 0.4 MG SL TAB SL SCH (06:45)
[2020-01-18] MEDS ORDERED: traMADol HCL 50 MG TAB PO PRN (06:45)
[2020-01-18] MEDS ORDERED: SODIUM CHLORIDE 0.9% 1,000 ML IV SCH (07:01)
[2020-01-18] MEDS ORDERED: hydrALAZINE HCL 25 MG TAB PO ONE (07:15)
[2020-01-18] MEDS ORDERED: HYDROmorphone HCL 2 MG/ML VL IV PRN (07:15)
[2020-01-18] MEDS ORDERED: DEXTROSE (50%) 50ML SYRG IV PRN (07:15)
[2020-01-18] MEDS ORDERED: DOCUSATE SOD 100 MG CAP PO PRN (07:15)
[2020-01-18] MEDS ORDERED: hydrALAZINE HCL 25 MG TAB PO SCH ×2 (07:15→10:00)
[2020-01-18] MEDS ORDERED: ONDANSETRON HCL 4 MG/2 ML VIAL IV PRN (07:15)
[2020-01-18] MEDS ORDERED: HYDROcodone-ACET 5/325MG TAB PO PRN (07:15)
[2020-01-18] MEDS: CALCIUM ACETATE 667 MG CAP PO SCH ×3 (08:33→18:00)
[2020-01-18] MEDS: InsuLIN REG 1unit/0.01ml Soln (100units/ml) SC SCH ×3 (08:38→16:00)
[2020-01-18] MEDS: ACCU-CHEK COMFORT CURVE STRIP VI SCH ×3 (08:38→16:00)
[2020-01-18] MEDS ORDERED: PANTOPRAZOLE 40 MG TAB PO SCH (10:00)
[2020-01-18] MEDS ORDERED: SEVELAMER 800 MG TAB PO SCH (10:00)
[2020-01-18] MEDS ORDERED: ZANTAC 150 MG PO SCH (10:00)
[2020-01-18] MEDS ORDERED: DOCUSATE SOD 100 MG CAP PO SCH (10:00)
[2020-01-18] MEDS ORDERED: B-COMPLEX W/ C & FOLIC ACID(NEPHROVITE TAB) PO SCH (10:00)
[2020-01-18] MEDS ORDERED: LACTULOSE 20Gm/30ML SOLN PO SCH (10:00)
[2020-01-18] MEDS ORDERED: APIXABAN 2.5 MG TAB PO SCH (10:00)
[2020-01-18] MEDS ORDERED: MINOXIDIL 2.5 MG TAB PO SCH (10:00)
[2020-01-18] MEDS ORDERED: AMIODARONE HCL 200 MG TAB PO SCH (10:00)
[2020-01-18] MEDS ORDERED: ATORVASTATIN 20 MG TAB PO SCH (10:00)
[2020-01-18] MEDS ORDERED: ASPirin-EC 81 mg tab PO SCH (10:00)
[2020-01-18] MEDS ORDERED: CARVEDILOL 3.125 MG TAB PO SCH (10:00)
[2020-01-18] MEDS ORDERED: CINACALCET HYDROCHLORIDE 30 MG TAB PO SCH (10:00)
[2020-01-18] MEDS ORDERED: cefTRIAXone 1GM/50ML D5W 50 ML IV SCH (10:00)
[2020-01-18] MEDS ORDERED: GABAPENTIN 300 MG CAP PO SCH (14:00)
[2020-01-18 15:56] VITALS: BP 116/68
[2020-01-18 17:00] VITALS: BP 126/79
[2020-01-18 18:27] VITALS: BP 123/79
== END 2020-01-18 22:55 | disposition home or self-care (01) | DRG 465 ==
LOC: ER 03:04 → EDBD 03:04 → OVERFLOW 03:05 → WEST WING 12:58
PROVIDERS: ADMIT Hospitalist; ATTEND Hospitalist
DX: N20.0 Calculus of kidney (principal); I13.2 Hypertensive heart and chronic kidney disease with heart failure and with stage 5 chronic kidney disease, or end stage renal disease; E11.22 Type 2 diabetes mellitus with diabetic chronic kidney disease; E11.42 Type 2 diabetes mellitus with diabetic polyneuropathy; N18.6 End stage renal disease; I48.91 Unspecified atrial fibrillation; N28.1 Cyst of kidney, acquired; D63.1 Anemia in chronic kidney disease; E78.5 Hyperlipidemia, unspecified; I25.10 Atherosclerotic heart disease of native coronary artery without angina pectoris; Z80.0 Family history of malignant neoplasm of digestive organs; Z82.49 Family history of ischemic heart disease and other diseases of the circulatory system; Z85.038 Personal history of other malignant neoplasm of large intestine; Z83.3 Family history of diabetes mellitus; Z90.49 Acquired absence of other specified parts of digestive tract; Z99.2 Dependence on renal dialysis; I50.9 Heart failure, unspecified; E87.1 Hypo-osmolality and hyponatremia; Z87.442 Personal history of urinary calculi
CPT/HCPCS: 36415; 74176; 80053; 82962; 83036; 83690; 85025; 87081; 96361; 96365; 96375; G0378; J0696; J1815; J2405

== ENCOUNTER 2020-05-04 09:39 | Inpatient (IN) | payer MEDICAID ==
[~2020-05-04] VITALS: Ht 167.6 cm; Wt 99.8 kg
[2020-05-04] MEDS ORDERED: methylPREDNISolone SOD SUCC 125 MG/2 ML VL IM ONE (11:00)
[2020-05-04 11:58] LABS: Basophils # (auto) 0 10 ^3/uL (0-0.2); Basophils % (auto) 0.4 % (0.0-2.0); Eosinophils # (auto) 0.2 10 ^3/uL (0-0.8); Eosinophils % (auto) 1.9 % (0.0-7.0); Hematocrit 40.3 % (41.0-53.0); Hemoglobin 13.1 g/dL (13.5-17.5); Lymphocytes # (auto) 0.6 10 ^3/uL (0.4-5.4); Lymphocytes % (auto) 6.6 % (10.0-50.0); Mean Corpuscular Hgb Conc. 32.5 g/dL (32.0-36.0); Mean Corpuscular Volume 95.5 fL (80.0-100.0); Monocytes # (auto) 0.7 10 ^3/uL (0-1.3); Monocytes % (auto) 7.5 % (0.0-12.0); Neutrophils # (auto) 7.5 10 ^3/uL (1.6-8.6); Neutrophils % (auto) 83.6 % (37.0-80.0); Nucleated Red Blood Cells % 0.1 %; Platelet Count (auto) 115 10^3/uL (140-450); Red Blood Cells 4.22 10^6/uL (4.5-5.90); Red Cell Distribution Width 14.1 % (11.8-14.3); White Blood Cell 8.9 10^3/uL (4.4-10.8)
[2020-05-04 12:13] LABS: INR 0.98 (0.9-1.15); Partial Thromboplastin Time 26.8 sec (23.0-31.2)
[2020-05-04 12:26] LABS: Albumin 3.5 g/dL (3.4-5.0); Bilirubin, Total 0.4 mg/dL (0.2-1.0); Calcium 8.5 mg/dL (8.5-10.1); Total Protein 7.7 g/dL (6.4-8.2)
[2020-05-04 12:29] LABS: Potassium 7.7 mmol/L (3.5-5.1)
[2020-05-04] MEDS ORDERED: CALCIUM GLUC 4.65meq/50ml D5AE 50 ML IV ONE ×2 (12:45→17:00)
[2020-05-04] MEDS ORDERED: ALBUTEROL SULF 2.5 MG/0.5ML(0.5%) NEB SOLN NEB ONE ×2 (12:45→17:00)
[2020-05-04] MEDS ORDERED: SODIUM BICARBONATE 8.4% INJ 50ML SYRINGE IV ONE ×2 (12:45→17:00)
[2020-05-04] MEDS ORDERED: InsuLIN REG 1unit/0.01ml Soln (100units/ml) IV ONE ×2 (12:45→17:00)
[2020-05-04] MEDS ORDERED: SODIUM ZIRCONIUM CYCL 10 GM PAK PO ONE (12:45)
[2020-05-04] MEDS ORDERED: DEXTROSE (50%) 50ML SYRG IV ONE ×2 (12:45→17:00)
[2020-05-04] MEDS ORDERED: NITROGLYCERIN 0.4 MG SL TAB SL SCH (15:45)
[2020-05-04] MEDS ORDERED: NITROGLYCERIN 0.4 MG SL TAB SL PRN (15:45)
[2020-05-04] MEDS ORDERED: MORPHINE SULF INJ 2 MG/ML SYRINGE 1ML IV PRN (15:45)
[2020-05-04 16:15] LABS: BUN/Creatinine Ratio 7.1; Calcium 8.8 mg/dL (8.5-10.1)
[2020-05-04 16:21] LABS: Potassium 6.8 mmol/L (3.5-5.1)
[2020-05-04] MEDS: CARVEDILOL 3.125 MG TAB PO SCH (18:00)
[2020-05-04] MEDS: CALCIUM ACETATE 667 MG CAP PO SCH (18:50)
[2020-05-04] MEDS ORDERED: HEPARIN 1,000 UNITS/ml 1ML VIAL ONE (20:27)
[2020-05-04] MEDS ORDERED: SODIUM CHL 0.9% 1000 ML BAG XX ONE (20:30)
[2020-05-04] MEDS: SODIUM ZIRCONIUM CYCL 10 GM PAK PO SCH (22:00)
[2020-05-04] MEDS: GABAPENTIN 300 MG CAP PO SCH (22:00)
[2020-05-04] MEDS: AMIODARONE HCL 200 MG TAB PO SCH (22:00)
[2020-05-04] MEDS: hydrALAZINE HCL 25 MG TAB PO SCH (22:00)
[2020-05-04] MEDS: MINOXIDIL 2.5 MG TAB PO SCH (22:00)
[2020-05-05] MEDS ORDERED: diphenhdrAMINE HCL 50 MG/1 ML VL ONE (00:30)
[2020-05-05] MEDS: hydrALAZINE HCL 25 MG TAB PO SCH ×2 (06:00→14:00)
[2020-05-05] MEDS: GABAPENTIN 300 MG CAP PO SCH ×2 (06:00→14:00)
[2020-05-05] MEDS: SODIUM ZIRCONIUM CYCL 10 GM PAK PO SCH ×2 (06:00→14:00)
[2020-05-05] MEDS: CARVEDILOL 3.125 MG TAB PO SCH ×2 (08:00→18:00)
[2020-05-05] MEDS: CALCIUM ACETATE 667 MG CAP PO SCH ×3 (08:00→18:00)
[2020-05-05 08:21] LABS: Calcium 7.7 mg/dL (8.5-10.1)
[2020-05-05 08:23] LABS: BUN/Creatinine Ratio 6.2
[2020-05-05 08:32] LABS: Potassium 6.2 mmol/L (3.5-5.1)
[2020-05-05] MEDS: MINOXIDIL 2.5 MG TAB PO SCH (09:50)
[2020-05-05] MEDS: AMIODARONE HCL 200 MG TAB PO SCH (09:50)
[2020-05-05] MEDS ORDERED: ATORVASTATIN 20 MG TAB PO SCH (10:00)
[2020-05-05] MEDS ORDERED: CINACALCET HYDROCHLORIDE 30 MG TAB PO SCH (10:00)
[2020-05-05] MEDS ORDERED: PANTOPRAZOLE 40 MG TAB PO SCH (10:00)
[2020-05-05] MEDS ORDERED: ASPirin-EC 81 mg tab PO SCH (10:00)
[2020-05-05] MEDS ORDERED: SODIUM CHL 0.9% 1000 ML BAG XX ONE (10:30)
[2020-05-05 14:11] LABS: BUN/Creatinine Ratio 5.8; Calcium 8.2 mg/dL (8.5-10.1)
[2020-05-05] MEDS ORDERED: diphenhdrAMINE HCL 25 MG CAP PO PRN (16:45)
[2020-05-05] MEDS ORDERED: DEXTROSE (50%) 50ML SYRG IV PRN (16:45)
[2020-05-05] MEDS ORDERED: InsuLIN REG 1unit/0.01ml Soln (100units/ml) SC SCH (17:00)
[2020-05-05] MEDS ORDERED: ACCU-CHEK COMFORT CURVE STRIP VI SCH (17:00)
[2020-05-05 18:31] VITALS: BP 118/29
== END 2020-05-05 19:40 | disposition left against medical advice (07) | DRG 425 ==
LOC: ER 09:39 → TELE 09:40
PROVIDERS: ADMIT Internal Medicine; ATTEND Internal Medicine
PROC: 5A1D70Z Performance of Urinary Filtration, Intermittent, Less than 6 Hours Per Day (ICD-10-PCS; principal; 2020-05-04)
PROC: 5A1D70Z Performance of Urinary Filtration, Intermittent, Less than 6 Hours Per Day (ICD-10-PCS; 2020-05-05)
DX: E87.5 Hyperkalemia (principal); I13.2 Hypertensive heart and chronic kidney disease with heart failure and with stage 5 chronic kidney disease, or end stage renal disease; J90 Pleural effusion, not elsewhere classified; N18.6 End stage renal disease; E11.22 Type 2 diabetes mellitus with diabetic chronic kidney disease; E11.65 Type 2 diabetes mellitus with hyperglycemia; R07.9 Chest pain, unspecified; Z99.2 Dependence on renal dialysis; Z79.4 Long term (current) use of insulin; D63.1 Anemia in chronic kidney disease; E66.01 Morbid (severe) obesity due to excess calories; L97.509 Non-pressure chronic ulcer of other part of unspecified foot with unspecified severity; Z53.29 Procedure and treatment not carried out because of patient's decision for other reasons; E78.5 Hyperlipidemia, unspecified; I25.10 Atherosclerotic heart disease of native coronary artery without angina pectoris; R19.7 Diarrhea, unspecified; L29.9 Pruritus, unspecified; R21 Rash and other nonspecific skin eruption; Z80.9 Family history of malignant neoplasm, unspecified; Z82.49 Family history of ischemic heart disease and other diseases of the circulatory system; Z83.3 Family history of diabetes mellitus; Z91.14 Patient's other noncompliance with medication regimen; Z91.19 Patient's noncompliance with other medical treatment and regimen; Z88.8 Allergy status to other drugs, medicaments and biological substances; I50.9 Heart failure, unspecified; E11.621 Type 2 diabetes mellitus with foot ulcer
CPT/HCPCS: 36415; 71045; 80048; 80053; 82962; 83605; 83880; 84484; 85025; 85610; 85730; 87040; 90935; 93005; 94640; 94644; 99291; G0378; J0610; J1815

== ENCOUNTER 2020-07-27 12:47 | Inpatient (IN) | payer MEDICAID ==
[~2020-07-27] VITALS: Ht 167.6 cm; Wt 95.3 kg
[2020-07-27 14:19] LABS: Basophils # (auto) 0 10 ^3/uL (0-0.2); Basophils % (auto) 0.2 % (0.0-2.0); Eosinophils # (auto) 0.2 10 ^3/uL (0-0.8); Eosinophils % (auto) 2.8 % (0.0-7.0); Hematocrit 35.8 % (41.0-53.0); Hemoglobin 11.9 g/dL (13.5-17.5); Lymphocytes # (auto) 0.3 10 ^3/uL (0.4-5.4); Lymphocytes % (auto) 5.7 % (10.0-50.0); Mean Corpuscular Hemoglobin 30.7 pg (28.0-32.0); Mean Corpuscular Hgb Conc. 33.2 g/dL (32.0-36.0); Mean Corpuscular Volume 92.6 fL (80.0-100.0); Monocytes # (auto) 0.5 10 ^3/uL (0-1.3); Monocytes % (auto) 8.8 % (0.0-12.0); Neutrophils # (auto) 4.8 10 ^3/uL (1.6-8.6); Neutrophils % (auto) 82.5 % (37.0-80.0); Platelet Count (auto) 125 10^3/uL (140-450); Red Blood Cells 3.87 10^6/uL (4.5-5.90); Red Cell Distribution Width 13.3 % (11.8-14.3); White Blood Cell 5.8 10^3/uL (4.4-10.8)
[2020-07-27 14:32] LABS: Albumin 3.2 g/dL (3.4-5.0); Calcium 8.7 mg/dL (8.5-10.1); Potassium 4.4 mmol/L (3.5-5.1)
[2020-07-27 14:35] LABS: BUN/Creatinine Ratio 4.7; Bilirubin, Total 0.5 mg/dL (0.2-1.0); Total Protein 7.4 g/dL (6.4-8.2)
[2020-07-27] MEDS ORDERED: LEVALBUTEROL HCL 1.25 MG/3 ML NEB NEB PRN (20:45)
[2020-07-27] MEDS ORDERED: DEXTROSE (50%) 50ML SYRG IV PRN (20:45)
[2020-07-27] MEDS ORDERED: hydrALAZINE HCL 20 MG/ML VL IV PRN (20:45)
[2020-07-27] MEDS ORDERED: MORPHINE SULF INJ 2 MG/ML SYRINGE 1ML IV PRN (20:45)
[2020-07-27] MEDS ORDERED: NITROGLYCERIN 0.4 MG SL TAB SL PRN (20:45)
[2020-07-27] MEDS ORDERED: oxyCODONE HCL 5MG TAB PO PRN (20:45)
[2020-07-27] MEDS ORDERED: DOCUSATE SOD 100 MG CAP PO PRN (20:45)
[2020-07-27] MEDS: hydrALAZINE HCL 25 MG TAB PO SCH (21:30)
[2020-07-27] MEDS: AMIODARONE HCL 200 MG TAB PO SCH (21:30)
[2020-07-27] MEDS: GABAPENTIN 100 MG CAP PO SCH (21:31)
[2020-07-27] MEDS: CARVEDILOL 3.125 MG TAB PO SCH (21:31)
[2020-07-27] MEDS: InsuLIN REG 1unit/0.01ml Soln (100units/ml) SC SCH (21:50)
[2020-07-27] MEDS: ACCU-CHEK COMFORT CURVE STRIP VI SCH (22:00)
[2020-07-27] MEDS ORDERED: INSULIN LANTUS (GLARGINE) 1 /0.01ml (100units/ml) SC SCH (22:00)
[2020-07-27] MEDS ORDERED: AMIO200T33 PO (23:22)
[2020-07-28 00:20] VITALS: BP 121/66
[2020-07-28] MEDS ORDERED: HYDR50TA15 PO (03:35)
[2020-07-28 05:00] VITALS: BP 120/51
[2020-07-28] MEDS: GABAPENTIN 100 MG CAP PO SCH (06:20)
[2020-07-28] MEDS: hydrALAZINE HCL 25 MG TAB PO SCH (06:20)
[2020-07-28] MEDS: ACCU-CHEK COMFORT CURVE STRIP VI SCH (06:28)
[2020-07-28] MEDS: InsuLIN REG 1unit/0.01ml Soln (100units/ml) SC SCH (06:29)
[2020-07-28 07:23] LABS: INR 0.99 (0.9-1.15); Partial Thromboplastin Time 28.9 sec (23.0-31.2)
[2020-07-28 08:00] VITALS: BP 120/51
[2020-07-28 09:00] VITALS: BP 140/61
[2020-07-28] MEDS ORDERED: APIX2.5T PO (09:53)
[2020-07-28] MEDS: CARVEDILOL 3.125 MG TAB PO SCH (10:00)
[2020-07-28] MEDS: AMIODARONE HCL 200 MG TAB PO SCH (10:00)
[2020-07-28] MEDS ORDERED: PANTOPRAZOLE 40 MG TAB PO SCH (10:00)
[2020-07-28] MEDS ORDERED: B-COMPLEX W/ C & FOLIC ACID(NEPHROVITE TAB) PO SCH (10:00)
[2020-07-28] MEDS ORDERED: ATORVASTATIN 20 MG TAB PO SCH (22:00)
== END 2020-07-28 10:37 | disposition left against medical advice (07) | DRG 344 ==
LOC: ER 12:47 → TELE 20:49 → TELE-WESTW 23:55
PROVIDERS: ADMIT Internal Medicine; ATTEND Internal Medicine
DX: E10.69 Type 1 diabetes mellitus with other specified complication (principal); M86.171 Other acute osteomyelitis, right ankle and foot; E10.621 Type 1 diabetes mellitus with foot ulcer; N18.6 End stage renal disease; Z99.2 Dependence on renal dialysis; K74.60 Unspecified cirrhosis of liver; D63.8 Anemia in other chronic diseases classified elsewhere; E10.22 Type 1 diabetes mellitus with diabetic chronic kidney disease; E10.42 Type 1 diabetes mellitus with diabetic polyneuropathy; E78.5 Hyperlipidemia, unspecified; I13.2 Hypertensive heart and chronic kidney disease with heart failure and with stage 5 chronic kidney disease, or end stage renal disease; I50.9 Heart failure, unspecified; I48.91 Unspecified atrial fibrillation; I25.10 Atherosclerotic heart disease of native coronary artery without angina pectoris; K21.9 Gastro-esophageal reflux disease without esophagitis; Z79.01 Long term (current) use of anticoagulants; Z79.4 Long term (current) use of insulin; Z80.0 Family history of malignant neoplasm of digestive organs; Z82.49 Family history of ischemic heart disease and other diseases of the circulatory system; Z83.3 Family history of diabetes mellitus; Z91.19 Patient's noncompliance with other medical treatment and regimen; D69.6 Thrombocytopenia, unspecified; M20.11 Hallux valgus (acquired), right foot; M19.071 Primary osteoarthritis, right ankle and foot; Z88.1 Allergy status to other antibiotic agents; Z91.048 Other nonmedicinal substance allergy status; Z20.828 Contact with and (suspected) exposure to other viral communicable diseases; L97.519 Non-pressure chronic ulcer of other part of right foot with unspecified severity
CPT/HCPCS: 36415; 71045; 73630; 73700; 73718; 80053; 82962; 83880; 84484; 85025; 85610; 85730; 87077; 87081; 87186; 87205; 93005; 93926; 96372; G0378; J1815

== ENCOUNTER 2020-09-16 11:19 | Inpatient (IN) | payer MEDICAID ==
[~2020-09-16] VITALS: Ht 167.6 cm; Wt 96.2 kg
[~2020-09-16 11:19] MED LIST changes: -APIX2.5T OR; +APIX2.5T PO; -ASPI-231 PO; -CALC667C PO; -CINA30TA2 PO; -DOCU-94 PO; -DOX100T PO; -ERGO1CAP6 PO; -LACT10SO3 PO; -MIN25T PO; -NEPVITT PO; -NITR0.4S29 SL; -RANI-226 PO; -SEVE800T PO; -TRAM50TA2 PO
[2020-09-16] MEDS ORDERED: ACETAMINOPHEN 325 MG TAB PO ONE (12:00)
[2020-09-16 12:24] LABS: Basophils # (auto) 0.1 10 ^3/uL (0-0.2); Basophils % (auto) 0.8 % (0.0-2.0); Eosinophils # (auto) 0 10 ^3/uL (0-0.8); Eosinophils % (auto) 0.1 % (0.0-7.0); Hematocrit 39.8 % (41.0-53.0); Hemoglobin 13.1 g/dL (13.5-17.5); Lymphocytes # (auto) 0.5 10 ^3/uL (0.4-5.4); Lymphocytes % (auto) 4.6 % (10.0-50.0); Mean Corpuscular Hemoglobin 30.4 pg (28.0-32.0); Mean Corpuscular Hgb Conc. 32.9 g/dL (32.0-36.0); Mean Corpuscular Volume 92.2 fL (80.0-100.0); Monocytes # (auto) 0.8 10 ^3/uL (0-1.3); Monocytes % (auto) 6.9 % (0.0-12.0); Neutrophils # (auto) 9.7 10 ^3/uL (1.6-8.6); Neutrophils % (auto) 87.6 % (37.0-80.0); Nucleated Red Blood Cells % 0.2 %; Platelet Count (auto) 177 10^3/uL (140-450); Red Blood Cells 4.31 10^6/uL (4.5-5.90); White Blood Cell 11.1 10^3/uL (4.4-10.8)
[2020-09-16 12:40] LABS: Albumin 2.4 g/dL (3.4-5.0); Calcium 8.9 mg/dL (8.5-10.1)
[2020-09-16 12:41] LABS: Lactic Acid w/Reflex 2.2 mmol/L (0.4-2.0)
[2020-09-16 12:49] LABS: BUN/Creatinine Ratio 5.7; Bilirubin, Total 0.6 mg/dL (0.2-1.0); CRP High Sensitivity 13.2 mg/dL (< 0.3); Total Protein 8.2 g/dL (6.4-8.2)
[2020-09-16 12:56] LABS: Potassium 5.9 mmol/L (3.5-5.1)
[2020-09-16] MEDS ORDERED: methylPREDNISolone SOD SUCC 125 MG/2 ML VL IV ONE (13:45)
[2020-09-16] MEDS ORDERED: AZITHROMYCIN 500MG/ 250ML 250 ML IV ONE (13:45)
[2020-09-16] MEDS ORDERED: SODIUM BICARBONATE 8.4 % INJ 50ML VIAL IV ONE (15:15)
[2020-09-16] MEDS: AMIODARONE HCL 200 MG TAB PO SCH ×2 (15:15→22:16)
[2020-09-16] MEDS ORDERED: SODIUM CHLORIDE 0.9% 1,000 ML IV ONE ×2 (15:15)
[2020-09-16] MEDS ORDERED: ATORVASTATIN 20 MG TAB PO ONE (15:15)
[2020-09-16] MEDS ORDERED: ALBUTEROL SULF 2.5 MG/0.5ML(0.5%) NEB SOLN NEB ONE (15:15)
[2020-09-16] MEDS ORDERED: DEXTROSE (50%) 50ML SYRG IV ONE (15:15)
[2020-09-16] MEDS ORDERED: CALCIUM GLUC 4.65meq/50ml D5AE 50 ML IV ONE ×2 (15:15)
[2020-09-16] MEDS ORDERED: ASPirin 81 mg TAB PO ONE (15:15)
[2020-09-16] MEDS ORDERED: InsuLIN REG 1unit/0.01ml Soln (100units/ml) IV ONE (15:15)
[2020-09-16] MEDS ORDERED: DEXTROSE (50%) 50ML SYRG IV PRN (15:15)
[2020-09-16] MEDS ORDERED: SODIUM ZIRCONIUM CYCL 10 GM PAK PO ONE (15:15)
[2020-09-16] MEDS: INSULIN LANTUS (GLARGINE) 1 /0.01ml (100units/ml) SC SCH (15:30)
[2020-09-16] MEDS: InsuLIN REG 1unit/0.01ml Soln (100units/ml) SC SCH ×3 (16:00→20:30)
[2020-09-16] MEDS: ACCU-CHEK COMFORT CURVE STRIP VI SCH ×2 (16:00→20:20)
[2020-09-16] MEDS: APIXABAN 5 MG TAB PO SCH (22:17)
[2020-09-16 22:35] LABS: Calcium 8.7 mg/dL (8.5-10.1)
[2020-09-16 22:40] LABS: BUN/Creatinine Ratio 6.2
[2020-09-16 23:00] LABS: Potassium 6.6 mmol/L (3.5-5.1)
[2020-09-17] MEDS: ACCU-CHEK COMFORT CURVE STRIP VI SCH ×5 (00:07→22:06)
[2020-09-17] MEDS: InsuLIN REG 1unit/0.01ml Soln (100units/ml) SC SCH ×5 (00:11→22:17)
[2020-09-17] MEDS ORDERED: MORPHINE SULF INJ 2 MG/ML SYRINGE 1ML IV PRN (02:15)
[2020-09-17] MEDS ORDERED: NITROGLYCERIN 0.4 MG SL TAB SL PRN (02:15)
[2020-09-17] MEDS ORDERED: DEXTROSE (50%) 50ML SYRG IV PRN (02:15)
[2020-09-17] MEDS: AZITHROMYCIN 500MG/ 250ML 250 ML IV SCH (10:01)
[2020-09-17] MEDS: ZINC SULFATE 220mg CAP or TAB PO SCH (10:02)
[2020-09-17] MEDS: AMIODARONE HCL 200 MG TAB PO SCH ×2 (10:12→21:56)
[2020-09-17] MEDS: APIXABAN 5 MG TAB PO SCH ×2 (10:13→22:05)
[2020-09-17] MEDS: CARVEDILOL 3.125 MG TAB PO SCH ×2 (10:13→22:05)
[2020-09-17] MEDS: ASPirin-EC 81 mg tab PO SCH (10:13)
[2020-09-17] MEDS: ASCORBIC ACID 500 MG TAB PO SCH (10:14)
[2020-09-17] MEDS: INSULIN LANTUS (GLARGINE) 1 /0.01ml (100units/ml) SC SCH (10:14)
[2020-09-17 10:38] LABS: Albumin 2.2 g/dL (3.4-5.0); Calcium 8.9 mg/dL (8.5-10.1); Potassium 4.9 mmol/L (3.5-5.1)
[2020-09-17 10:42] LABS: BUN/Creatinine Ratio 6.3; Bilirubin, Total 0.6 mg/dL (0.2-1.0); Total Protein 7.3 g/dL (6.4-8.2)
[2020-09-17 11:03] LABS: Hematocrit 38.3 % (41.0-53.0); Hemoglobin 12.6 g/dL (13.5-17.5); Mean Corpuscular Hemoglobin 30.4 pg (28.0-32.0); Mean Corpuscular Hgb Conc. 32.9 g/dL (32.0-36.0); Mean Corpuscular Volume 92.3 fL (80.0-100.0); Red Blood Cells 4.15 10^6/uL (4.5-5.90); Red Cell Distribution Width 15.2 % (11.8-14.3); White Blood Cell 12.1 10^3/uL (4.4-10.8)
[2020-09-17 11:08] LABS: Basophils % (manual) 0 (0.0-2.0); Blast Cells 0; Eosinophils % (manual) 0 (0-7); Metamyelocytes % 0; Myelocytes % 0; Promyelocytes % 0; Reactive Lymphocytes 0
[2020-09-17] MEDS: traMADol HCL 50 MG TAB PO PRN ×2 (11:28→17:54)
[2020-09-17 12:14] LABS: Band Neutrophils % (manual) 3; Lymphocytes % (manual) 4 (10.0-50.0); Monocytes % (manual) 3 (0-12)
[2020-09-17] MEDS: ATORVASTATIN 20 MG TAB PO SCH (22:05)
[2020-09-18] MEDS: traMADol HCL 50 MG TAB PO PRN (00:33)
[2020-09-18 02:00] VITALS: BP 131/81
[2020-09-18 03:25] VITALS: BP 131/81
[2020-09-18] MEDS: InsuLIN REG 1unit/0.01ml Soln (100units/ml) SC SCH ×4 (06:35→22:58)
[2020-09-18] MEDS: ACCU-CHEK COMFORT CURVE STRIP VI SCH ×4 (06:36→22:00)
[2020-09-18] MEDS ORDERED: SODIUM CHL 0.9% 1000 ML BAG XX ONE (07:00)
[2020-09-18 08:00] VITALS: BP 114/46
[2020-09-18 08:34] LABS: Basophils # (auto) 0.2 10 ^3/uL (0-0.2); Eosinophils # (auto) 0 10 ^3/uL (0-0.8); Eosinophils % (auto) 0.1 % (0.0-7.0); Hematocrit 36.4 % (41.0-53.0); Hemoglobin 12.2 g/dL (13.5-17.5); Lymphocytes # (auto) 0.4 10 ^3/uL (0.4-5.4); Lymphocytes % (auto) 2.8 % (10.0-50.0); Mean Corpuscular Hemoglobin 30.5 pg (28.0-32.0); Mean Corpuscular Hgb Conc. 33.4 g/dL (32.0-36.0); Mean Corpuscular Volume 91.3 fL (80.0-100.0); Monocytes # (auto) 0.3 10 ^3/uL (0-1.3); Neutrophils # (auto) 14.2 10 ^3/uL (1.6-8.6); Neutrophils % (auto) 94.1 % (37.0-80.0); Red Blood Cells 3.98 10^6/uL (4.5-5.90); Red Cell Distribution Width 14.3 % (11.8-14.3); White Blood Cell 15.1 10^3/uL (4.4-10.8)
[2020-09-18 08:47] LABS: Potassium 4.6 mmol/L (3.5-5.1)
[2020-09-18 08:59] LABS: Albumin 2.3 g/dL (3.4-5.0); BUN/Creatinine Ratio 7.8; Bilirubin, Total 0.5 mg/dL (0.2-1.0); Calcium 8.7 mg/dL (8.5-10.1); Total Protein 7.3 g/dL (6.4-8.2)
[2020-09-18] MEDS: INSULIN LANTUS (GLARGINE) 1 /0.01ml (100units/ml) SC SCH ×3 (09:00→22:59)
[2020-09-18] MEDS ORDERED: REMDESIVIR PER PHARMACY 0 ML IV SCH (09:00)
[2020-09-18 09:09] LABS: Platelet Count (auto) 140 10^3/uL (140-450)
[2020-09-18] MEDS: DexAMETHasone SOD PHOS 10MG/1ML VIAL INJ IV SCH ×2 (10:00→10:08)
[2020-09-18] MEDS: APIXABAN 5 MG TAB PO SCH ×2 (10:08→22:57)
[2020-09-18] MEDS: AMIODARONE HCL 200 MG TAB PO SCH ×2 (10:08→22:56)
[2020-09-18] MEDS: diphenhdrAMINE HCL 50 MG/1 ML VL IV PRN (10:08)
[2020-09-18] MEDS: ASCORBIC ACID 500 MG TAB PO SCH (10:08)
[2020-09-18] MEDS: ASPirin-EC 81 mg tab PO SCH (10:08)
[2020-09-18] MEDS: ZINC SULFATE 220mg CAP or TAB PO SCH (10:08)
[2020-09-18] MEDS: CARVEDILOL 3.125 MG TAB PO SCH ×2 (10:09→22:57)
[2020-09-18] MEDS: AZITHROMYCIN 500MG/ 250ML 250 ML IV SCH (10:09)
[2020-09-18] MEDS ORDERED: REMDESIVIR 200 MG in NS 210ml LOADING DOSE ADULT IV ONE (15:00)
[2020-09-18 16:52] VITALS: BP 119/37
[2020-09-18] MEDS ORDERED: EPOETIN ALFA 4,000 UNIT/ML VL SC ONE (21:00)
[2020-09-18] MEDS: ATORVASTATIN 20 MG TAB PO SCH (22:57)
[2020-09-19] VITALS: BP 127/67
[2020-09-19] MEDS ORDERED: VANCOMYCIN PER PHARMACY 0 MG IV SCH (00:45)
[2020-09-19] MEDS ORDERED: VANCOMYCIN 1GM/250ML 250 ML IV ONE (01:00)
[2020-09-19] MEDS: traMADol HCL 50 MG TAB PO PRN ×4 (01:51→21:07)
[2020-09-19] MEDS: diphenhdrAMINE HCL 50 MG/1 ML VL IV PRN ×3 (02:41→23:11)
[2020-09-19] MEDS: ACCU-CHEK COMFORT CURVE STRIP VI SCH ×4 (06:07→21:57)
[2020-09-19] MEDS: InsuLIN REG 1unit/0.01ml Soln (100units/ml) SC SCH ×4 (06:08→22:08)
[2020-09-19 08:00] VITALS: BP_SYST 127; BP_SYST 163; BP_DIAS 49; BP_DIAS 67
[2020-09-19 08:03] LABS: Basophils # (auto) 0 10 ^3/uL (0-0.2); Basophils % (auto) 0.1 % (0.0-2.0); Eosinophils # (auto) 0 10 ^3/uL (0-0.8); Eosinophils % (auto) 0.2 % (0.0-7.0); Hematocrit 34.7 % (41.0-53.0); Hemoglobin 11.5 g/dL (13.5-17.5); Lymphocytes # (auto) 0.3 10 ^3/uL (0.4-5.4); Lymphocytes % (auto) 2.8 % (10.0-50.0); Mean Corpuscular Hemoglobin 30.4 pg (28.0-32.0); Mean Corpuscular Hgb Conc. 33.3 g/dL (32.0-36.0); Mean Corpuscular Volume 91.4 fL (80.0-100.0); Monocytes # (auto) 0.5 10 ^3/uL (0-1.3); Monocytes % (auto) 4.5 % (0.0-12.0); Neutrophils # (auto) 10.5 10 ^3/uL (1.6-8.6); Neutrophils % (auto) 92.4 % (37.0-80.0); Platelet Count (auto) 127 10^3/uL (140-450); Red Blood Cells 3.79 10^6/uL (4.5-5.90); Red Cell Distribution Width 14.3 % (11.8-14.3); White Blood Cell 11.3 10^3/uL (4.4-10.8)
[2020-09-19 08:22] LABS: Potassium 4.1 mmol/L (3.5-5.1)
[2020-09-19 08:29] LABS: Albumin 2.1 g/dL (3.4-5.0); BUN/Creatinine Ratio 7.4; Bilirubin, Total 0.5 mg/dL (0.2-1.0); Calcium 8.2 mg/dL (8.5-10.1); Total Protein 6.5 g/dL (6.4-8.2)
[2020-09-19] MEDS: AMIODARONE HCL 200 MG TAB PO SCH ×2 (10:50→21:07)
[2020-09-19] MEDS: DexAMETHasone SOD PHOS 10MG/1ML VIAL INJ IV SCH (10:50)
[2020-09-19] MEDS: ZINC SULFATE 220mg CAP or TAB PO SCH (10:50)
[2020-09-19] MEDS: AZITHROMYCIN 500MG/ 250ML 250 ML IV SCH (10:50)
[2020-09-19] MEDS: ASCORBIC ACID 500 MG TAB PO SCH (10:51)
[2020-09-19] MEDS: CARVEDILOL 3.125 MG TAB PO SCH ×2 (10:51→21:08)
[2020-09-19] MEDS: APIXABAN 5 MG TAB PO SCH ×2 (10:51→21:08)
[2020-09-19] MEDS: ASPirin-EC 81 mg tab PO SCH (10:51)
[2020-09-19] MEDS: INSULIN LANTUS (GLARGINE) 1 /0.01ml (100units/ml) SC SCH ×2 (10:52→22:07)
[2020-09-19] MEDS: REMDESIVIR 100mg 100 MG in SODIUM CHL 0.9% 230 ML IV SCH (14:27)
[2020-09-19 16:25] VITALS: BP 137/74
[2020-09-19] MEDS: ATORVASTATIN 20 MG TAB PO SCH (21:08)
[2020-09-20] VITALS: BP 149/82
[2020-09-20] MEDS: ACCU-CHEK COMFORT CURVE STRIP VI SCH ×4 (05:55→21:55)
[2020-09-20] MEDS: InsuLIN REG 1unit/0.01ml Soln (100units/ml) SC SCH ×4 (05:56→22:21)
[2020-09-20 07:44] LABS: Potassium 4.5 mmol/L (3.5-5.1)
[2020-09-20 07:55] LABS: Albumin 2.3 g/dL (3.4-5.0); Bilirubin, Total 0.6 mg/dL (0.2-1.0); Calcium 8.6 mg/dL (8.5-10.1); Total Protein 6.9 g/dL (6.4-8.2)
[2020-09-20 08:00] VITALS: BP 162/92
[2020-09-20] MEDS: INSULIN LANTUS (GLARGINE) 1 /0.01ml (100units/ml) SC SCH ×2 (10:00→22:39)
[2020-09-20] MEDS: AMIODARONE HCL 200 MG TAB PO SCH ×2 (10:29→21:53)
[2020-09-20] MEDS: AZITHROMYCIN 500MG/ 250ML 250 ML IV SCH (10:29)
[2020-09-20] MEDS: ZINC SULFATE 220mg CAP or TAB PO SCH (10:29)
[2020-09-20] MEDS: DexAMETHasone SOD PHOS 10MG/1ML VIAL INJ IV SCH (10:29)
[2020-09-20] MEDS: ASPirin-EC 81 mg tab PO SCH (10:30)
[2020-09-20] MEDS: CARVEDILOL 3.125 MG TAB PO SCH ×2 (10:30→21:54)
[2020-09-20] MEDS: ASCORBIC ACID 500 MG TAB PO SCH (10:31)
[2020-09-20] MEDS: APIXABAN 5 MG TAB PO SCH ×2 (10:31→21:54)
[2020-09-20] MEDS ORDERED: VANCOMYCIN 1GM/250ML 250 ML IV ONE (11:15)
[2020-09-20] MEDS: diphenhdrAMINE HCL 50 MG/1 ML VL IV PRN ×2 (14:14→20:31)
[2020-09-20] MEDS: REMDESIVIR 100mg 100 MG in SODIUM CHL 0.9% 230 ML IV SCH (15:30)
[2020-09-20] MEDS: MORPHINE SULF INJ 2 MG/ML SYRINGE 1ML IV PRN (17:03)
[2020-09-20 20:00] VITALS: BP 152/58
[2020-09-20] MEDS: ATORVASTATIN 20 MG TAB PO SCH (21:54)
[2020-09-20 23:57] VITALS: BP 152/58
[2020-09-21] MEDS ORDERED: INSULIN LANTUS (GLARGINE) 1 /0.01ml (100units/ml) SC ONE
[2020-09-21] MEDS: InsuLIN REG 1unit/0.01ml Soln (100units/ml) SC SCH ×5 (06:10→22:45)
[2020-09-21] MEDS: ACCU-CHEK COMFORT CURVE STRIP VI SCH ×4 (06:11→22:08)
[2020-09-21 06:47] LABS: Basophils # (auto) 0 10 ^3/uL (0-0.2); Eosinophils # (auto) 0 10 ^3/uL (0-0.8); Hematocrit 34.9 % (41.0-53.0); Hemoglobin 11.5 g/dL (13.5-17.5); Lymphocytes # (auto) 0.3 10 ^3/uL (0.4-5.4); Lymphocytes % (auto) 1.9 % (10.0-50.0); Mean Corpuscular Hgb Conc. 32.8 g/dL (32.0-36.0); Mean Corpuscular Volume 91.3 fL (80.0-100.0); Monocytes # (auto) 0.5 10 ^3/uL (0-1.3); Monocytes % (auto) 4.1 % (0.0-12.0); Neutrophils # (auto) 12.6 10 ^3/uL (1.6-8.6); Nucleated Red Blood Cells % 0.1 %; Platelet Count (auto) 110 10^3/uL (140-450); Red Blood Cells 3.82 10^6/uL (4.5-5.90); Red Cell Distribution Width 14.3 % (11.8-14.3); White Blood Cell 13.4 10^3/uL (4.4-10.8)
[2020-09-21] MEDS ORDERED: SODIUM CHL 0.9% 1000 ML BAG XX ONE (07:00)
[2020-09-21 07:05] LABS: Albumin 2.3 g/dL (3.4-5.0); Calcium 8.4 mg/dL (8.5-10.1); Potassium 4.9 mmol/L (3.5-5.1)
[2020-09-21 07:09] LABS: BUN/Creatinine Ratio 8.9; Bilirubin, Total 0.5 mg/dL (0.2-1.0); Total Protein 6.5 g/dL (6.4-8.2)
[2020-09-21 08:00] VITALS: BP 172/76
[2020-09-21] MEDS: DexAMETHasone SOD PHOS 10MG/1ML VIAL INJ IV SCH (09:33)
[2020-09-21] MEDS: AZITHROMYCIN 500MG/ 250ML 250 ML IV SCH (09:34)
[2020-09-21] MEDS: ZINC SULFATE 220mg CAP or TAB PO SCH (09:34)
[2020-09-21] MEDS: CARVEDILOL 3.125 MG TAB PO SCH ×2 (09:34→21:56)
[2020-09-21] MEDS: AMIODARONE HCL 200 MG TAB PO SCH ×2 (09:34→21:56)
[2020-09-21] MEDS: ASPirin-EC 81 mg tab PO SCH (09:35)
[2020-09-21] MEDS: ASCORBIC ACID 500 MG TAB PO SCH (09:35)
[2020-09-21] MEDS: INSULIN LANTUS (GLARGINE) 1 /0.01ml (100units/ml) SC SCH ×2 (09:35→22:42)
[2020-09-21] MEDS: APIXABAN 5 MG TAB PO SCH ×2 (09:35→21:55)
[2020-09-21] MEDS: MORPHINE SULF INJ 2 MG/ML SYRINGE 1ML IV PRN (09:36)
[2020-09-21] MEDS: diphenhdrAMINE HCL 50 MG/1 ML VL IV PRN ×2 (14:22→21:55)
[2020-09-21] MEDS: REMDESIVIR 100mg 100 MG in SODIUM CHL 0.9% 230 ML IV SCH (15:00)
[2020-09-21 16:00] VITALS: BP 133/69
[2020-09-21] MEDS ORDERED: VANCOMYCIN 1GM/250ML 250 ML IV ONE (16:00)
[2020-09-21] MEDS ORDERED: ASCO500T11 PO (17:45)
[2020-09-21] MEDS ORDERED: ZINC220T6 PO (17:45)
[2020-09-21] MEDS ORDERED: BLOOKIT79 XX (17:45)
[2020-09-21] MEDS ORDERED: APIX5TAB PO (17:45)
[2020-09-21] MEDS ORDERED: INSLANTI SC (17:45)
[2020-09-21] MEDS ORDERED: INSU-831 XX (17:45)
[2020-09-21] MEDS ORDERED: DEXA6TAB6 PO (17:45)
[2020-09-21] MEDS ORDERED: INSREGI SC (17:45)
[2020-09-21] MEDS ORDERED: LANC30MI13 XX (17:45)
[2020-09-21 20:00] VITALS: BP 142/66
[2020-09-21] MEDS ORDERED: EPOETIN ALFA 4,000 UNIT/ML VL SC ONE (21:00)
[2020-09-21] MEDS: ATORVASTATIN 20 MG TAB PO SCH (21:56)
[2020-09-22] VITALS: BP 142/66
[2020-09-22] MEDS: ACCU-CHEK COMFORT CURVE STRIP VI SCH ×3 (06:14→17:00)
[2020-09-22] MEDS: InsuLIN REG 1unit/0.01ml Soln (100units/ml) SC SCH ×3 (06:16→17:00)
[2020-09-22 08:00] VITALS: BP 147/90
[2020-09-22 08:04] LABS: Potassium 4.5 mmol/L (3.5-5.1)
[2020-09-22 08:39] LABS: BUN/Creatinine Ratio 8.3; Bilirubin, Total 0.4 mg/dL (0.2-1.0); Calcium 7.6 mg/dL (8.5-10.1); Total Protein 5.8 g/dL (6.4-8.2)
[2020-09-22 09:08] VITALS: BP 147/90
[2020-09-22] MEDS: DexAMETHasone SOD PHOS 10MG/1ML VIAL INJ IV SCH (09:42)
[2020-09-22] MEDS: AZITHROMYCIN 500MG/ 250ML 250 ML IV SCH (09:42)
[2020-09-22] MEDS: ZINC SULFATE 220mg CAP or TAB PO SCH (09:42)
[2020-09-22] MEDS: AMIODARONE HCL 200 MG TAB PO SCH (09:43)
[2020-09-22] MEDS: CARVEDILOL 3.125 MG TAB PO SCH (09:44)
[2020-09-22] MEDS: ASCORBIC ACID 500 MG TAB PO SCH (09:45)
[2020-09-22] MEDS: APIXABAN 5 MG TAB PO SCH (09:45)
[2020-09-22] MEDS: ASPirin-EC 81 mg tab PO SCH (09:45)
[2020-09-22] MEDS: INSULIN LANTUS (GLARGINE) 1 /0.01ml (100units/ml) SC SCH (09:56)
[2020-09-22] MEDS: REMDESIVIR 100mg 100 MG in SODIUM CHL 0.9% 230 ML IV SCH ×2 (15:00→15:16)
[2020-09-22] MEDS: traMADol HCL 50 MG TAB PO PRN (15:16)
[2020-10-04] MEDS ORDERED: FLUC200T35 PO (17:24)
== END 2020-09-22 19:07 | disposition home or self-care (01) | DRG 137 ==
LOC: EDBD 11:19 → EDUNIT# 11:19 → ER 11:19 → TELE 11:20 → TELE-WESTW 09-17 23:21
PROVIDERS: ADMIT Hospitalist; ATTEND Hospitalist
PROC: 5A1D70Z Performance of Urinary Filtration, Intermittent, Less than 6 Hours Per Day (ICD-10-PCS; principal; 2020-09-16)
PROC: 5A1D70Z Performance of Urinary Filtration, Intermittent, Less than 6 Hours Per Day (ICD-10-PCS; 2020-09-18)
PROC: XW033E5 Introduction of Remdesivir Anti-infective into Peripheral Vein, Percutaneous Approach, New Technology Group 5 (ICD-10-PCS; 2020-09-18)
PROC: 5A1D70Z Performance of Urinary Filtration, Intermittent, Less than 6 Hours Per Day (ICD-10-PCS; 2020-09-21)
DX: U07.1 COVID-19 (principal); J96.01 Acute respiratory failure with hypoxia; E43 Unspecified severe protein-calorie malnutrition; J12.82 Pneumonia due to coronavirus disease 2019; J81.1 Chronic pulmonary edema; N18.6 End stage renal disease; I48.91 Unspecified atrial fibrillation; E87.5 Hyperkalemia; I27.21 Secondary pulmonary arterial hypertension; I12.0 Hypertensive chronic kidney disease with stage 5 chronic kidney disease or end stage renal disease; E11.65 Type 2 diabetes mellitus with hyperglycemia; E11.22 Type 2 diabetes mellitus with diabetic chronic kidney disease; D63.1 Anemia in chronic kidney disease; E78.5 Hyperlipidemia, unspecified; Z86.16 Personal history of COVID-19; Z80.0 Family history of malignant neoplasm of digestive organs; Z99.2 Dependence on renal dialysis; Z82.49 Family history of ischemic heart disease and other diseases of the circulatory system; Z83.3 Family history of diabetes mellitus; Z88.1 Allergy status to other antibiotic agents
CPT/HCPCS: 36415; 36600; 71045; 78582; 80048; 80053; 80202; 82728; 82805; 82962; 83036; 83605; 84484; 85007; 85025; 85027; 86141; 87040; 87077; 87186; 87426; 90935; 93005; 93306; 96365; 96372; 96375; G0378; J0610; J1100; J1815

== ENCOUNTER 2020-09-24 21:59 | Inpatient (IN) | payer MEDICAID ==
[~2020-09-24] VITALS: Ht 172.7 cm; Wt 99.8 kg
[~2020-09-24 21:59] MED LIST changes: -APIX2.5T PO; +APIX5TAB PO; +ASCO500T11 PO; +BLOOKIT79 XX; +DEXA6TAB6 PO; +INSLANTI SC; +INSREGI SC; +INSU-831 XX; +LANC30MI13 XX; +ZINC220T6 PO
[2020-09-25 02:12] LABS: Basophils # (auto) 0 10 ^3/uL (0-0.2); Basophils % (auto) 0.1 % (0.0-2.0); Eosinophils # (auto) 0.1 10 ^3/uL (0-0.8); Eosinophils % (auto) 0.5 % (0.0-7.0); Hemoglobin 11.3 g/dL (13.5-17.5); Lymphocytes # (auto) 0.3 10 ^3/uL (0.4-5.4); Lymphocytes % (auto) 2.6 % (10.0-50.0); Mean Corpuscular Hemoglobin 29.6 pg (28.0-32.0); Mean Corpuscular Hgb Conc. 32.2 g/dL (32.0-36.0); Mean Corpuscular Volume 91.8 fL (80.0-100.0); Monocytes # (auto) 0.9 10 ^3/uL (0-1.3); Monocytes % (auto) 7.4 % (0.0-12.0); Neutrophils # (auto) 10.4 10 ^3/uL (1.6-8.6); Neutrophils % (auto) 89.4 % (37.0-80.0); Red Blood Cells 3.81 10^6/uL (4.5-5.90); Red Cell Distribution Width 14.4 % (11.8-14.3); White Blood Cell 11.7 10^3/uL (4.4-10.8)
[2020-09-25 02:29] LABS: Albumin 2.2 g/dL (3.4-5.0); Calcium 7.6 mg/dL (8.5-10.1); Magnesium 2.1 mg/dL (1.6-2.6)
[2020-09-25 02:34] LABS: Bilirubin, Total 0.4 mg/dL (0.2-1.0); Total Protein 5.7 g/dL (6.4-8.2)
[2020-09-25 02:37] LABS: Potassium 6.4 mmol/L (3.5-5.1)
[2020-09-25 02:50] LABS: INR 1.22 (0.9-1.15); Partial Thromboplastin Time 32.6 sec (23.0-31.2)
[2020-09-25] MEDS ORDERED: SODIUM ZIRCONIUM CYCL 10 GM PAK PO ONE ×2 (03:15→09:00)
[2020-09-25] MEDS ORDERED: InsuLIN REG 1unit/0.01ml Soln (100units/ml) IV ONE ×2 (03:15→09:00)
[2020-09-25] MEDS ORDERED: SODIUM BICARBONATE 8.4% INJ 50ML SYRINGE IV ONE (03:15)
[2020-09-25] MEDS ORDERED: DEXTROSE (50%) 50ML SYRG IV ONE ×3 (03:15→12:00)
[2020-09-25] MEDS ORDERED: ASPirin 325 MG TAB PO ONE (03:45)
[2020-09-25] MEDS ORDERED: MORPHINE SULFATE INJECTION 2 MG/ML SYRG IV PRN (06:00)
[2020-09-25 07:24] LABS: Calcium 7.9 mg/dL (8.5-10.1)
[2020-09-25 07:31] LABS: BUN/Creatinine Ratio 10.2
[2020-09-25 08:07] LABS: Potassium 6.1 mmol/L (3.5-5.1)
[2020-09-25] MEDS ORDERED: DEXTROSE 50% SYRINGE 50 ML IV ONE (11:39)
[2020-09-25 13:46] LABS: BUN/Creatinine Ratio 10.2; Potassium 5.5 mmol/L (3.5-5.1)
[2020-09-25] MEDS: GABAPENTIN 300 MG CAP PO SCH (14:30)
[2020-09-25] MEDS ORDERED: MORPHINE SULFATE INJECTION 2 MG/ML SYRG IV ONE (21:00)
[2020-09-26] MEDS: CARVEDILOL 3.125 MG TAB PO SCH ×3 (00:29→22:13)
[2020-09-26] MEDS: AMIODARONE HCL 200 MG TAB PO SCH ×3 (00:29→22:12)
[2020-09-26] MEDS: GABAPENTIN 300 MG CAP PO SCH ×2 (00:29→06:00)
[2020-09-26] MEDS: APIXABAN 5 MG TAB PO SCH ×3 (00:29→22:14)
[2020-09-26] MEDS: INSULIN LANTUS (GLARGINE) 1 /0.01ml (100units/ml) SC SCH ×4 (02:40→22:14)
[2020-09-26] MEDS: MORPHINE SULFATE INJECTION 2 MG/ML SYRG IV PRN ×2 (02:46→10:53)
[2020-09-26] MEDS: hydrALAZINE HCL 25 MG TAB PO SCH ×3 (03:51→22:12)
[2020-09-26 05:27] LABS: Basophils # (auto) 0.1 10 ^3/uL (0-0.2); Basophils % (auto) 0.6 % (0.0-2.0); Eosinophils # (auto) 0.1 10 ^3/uL (0-0.8); Eosinophils % (auto) 0.8 % (0.0-7.0); Hematocrit 30.3 % (41.0-53.0); Hemoglobin 10.1 g/dL (13.5-17.5); Lymphocytes # (auto) 0.2 10 ^3/uL (0.4-5.4); Lymphocytes % (auto) 1.8 % (10.0-50.0); Mean Corpuscular Hemoglobin 30.1 pg (28.0-32.0); Mean Corpuscular Hgb Conc. 33.2 g/dL (32.0-36.0); Mean Corpuscular Volume 90.6 fL (80.0-100.0); Monocytes # (auto) 0.7 10 ^3/uL (0-1.3); Neutrophils # (auto) 8.6 10 ^3/uL (1.6-8.6); Neutrophils % (auto) 89.8 % (37.0-80.0); Red Blood Cells 3.35 10^6/uL (4.5-5.90); White Blood Cell 9.6 10^3/uL (4.4-10.8)
[2020-09-26 05:39] LABS: BUN/Creatinine Ratio 8.4; Calcium 7.8 mg/dL (8.5-10.1); Magnesium 2.2 mg/dL (1.6-2.6)
[2020-09-26 05:51] LABS: Potassium 5.7 mmol/L (3.5-5.1)
[2020-09-26] MEDS ORDERED: SODIUM ZIRCONIUM CYCL 10 GM PAK PO ONE (06:15)
[2020-09-26] MEDS: SODIUM ZIRCONIUM CYCL 10 GM PAK PO SCH (10:30)
[2020-09-26] MEDS: DexAMETHasone SOD PHOS 4 MG/1ML SDV INJ IV SCH (10:30)
[2020-09-26] MEDS: ATORVASTATIN 20 MG TAB PO SCH (10:30)
[2020-09-26] MEDS: ASCORBIC ACID 500 MG TAB PO SCH (10:30)
[2020-09-26] MEDS: PANTOPRAZOLE 40 MG TAB PO SCH (10:30)
[2020-09-27] MEDS: ATORVASTATIN 20 MG TAB PO SCH (09:35)
[2020-09-27] MEDS: hydrALAZINE HCL 25 MG TAB PO SCH (09:36)
[2020-09-27] MEDS: APIXABAN 5 MG TAB PO SCH (09:36)
[2020-09-27] MEDS: AMIODARONE HCL 200 MG TAB PO SCH (09:37)
[2020-09-27] MEDS: PANTOPRAZOLE 40 MG TAB PO SCH (09:37)
[2020-09-27] MEDS: CARVEDILOL 3.125 MG TAB PO SCH (09:37)
[2020-09-27] MEDS: ASCORBIC ACID 500 MG TAB PO SCH (09:38)
[2020-09-27] MEDS: DexAMETHasone SOD PHOS 4 MG/1ML SDV INJ IV SCH (09:38)
[2020-09-27] MEDS: SODIUM ZIRCONIUM CYCL 10 GM PAK PO SCH (09:53)
[2020-09-27] MEDS: INSULIN LANTUS (GLARGINE) 1 /0.01ml (100units/ml) SC SCH (09:54)
[2020-09-27] MEDS ORDERED: GABAPENTIN 100 MG CAP PO SCH ×2 (10:00→22:00)
[2020-09-27 11:41] LABS: BUN/Creatinine Ratio 8.9; Potassium 5.2 mmol/L (3.5-5.1)
[2020-09-27] MEDS ORDERED: SODIUM CHL 0.9% 1000 ML BAG XX ONE (12:15)
[2020-09-27 17:48] VITALS: BP 133/79
== END 2020-09-27 22:10 | disposition left against medical advice (07) | DRG 425 ==
LOC: ER 21:59 → EDBD 21:59 → TELE 22:00
PROVIDERS: ADMIT Internal Medicine; ATTEND Internal Medicine
PROC: 5A1D70Z Performance of Urinary Filtration, Intermittent, Less than 6 Hours Per Day (ICD-10-PCS; principal; 2020-09-25)
PROC: 5A1D70Z Performance of Urinary Filtration, Intermittent, Less than 6 Hours Per Day (ICD-10-PCS; 2020-09-27)
DX: E87.5 Hyperkalemia (principal); U07.1 COVID-19; J12.82 Pneumonia due to coronavirus disease 2019; J96.21 Acute and chronic respiratory failure with hypoxia; N18.6 End stage renal disease; Z99.2 Dependence on renal dialysis; E88.09 Other disorders of plasma-protein metabolism, not elsewhere classified; D63.1 Anemia in chronic kidney disease; I48.20 Chronic atrial fibrillation, unspecified; D69.6 Thrombocytopenia, unspecified; I48.0 Paroxysmal atrial fibrillation; E11.22 Type 2 diabetes mellitus with diabetic chronic kidney disease; E66.9 Obesity, unspecified; E78.5 Hyperlipidemia, unspecified; F19.90 Other psychoactive substance use, unspecified, uncomplicated; I12.0 Hypertensive chronic kidney disease with stage 5 chronic kidney disease or end stage renal disease; Z80.0 Family history of malignant neoplasm of digestive organs; Z82.49 Family history of ischemic heart disease and other diseases of the circulatory system; Z83.3 Family history of diabetes mellitus; Z87.01 Personal history of pneumonia (recurrent); Z91.14 Patient's other noncompliance with medication regimen; Z99.81 Dependence on supplemental oxygen; Z88.8 Allergy status to other drugs, medicaments and biological substances; Z91.048 Other nonmedicinal substance allergy status
CPT/HCPCS: 36415; 71045; 80048; 80053; 82962; 83735; 84443; 84484; 85025; 85379; 85610; 85730; 87426; 90935; 96374; 96375; G0378; J1100; J1815

== ENCOUNTER 2020-09-29 18:08 | Inpatient (IN) | payer MEDICAID ==
[~2020-09-29] VITALS: Ht 172.7 cm; Wt 86.5 kg
[2020-09-29] MEDS ORDERED: DexAMETHasone SOD PHOS 10MG/1ML VIAL INJ IV ONE (21:30)
[2020-09-29] MEDS ORDERED: DOXYCYCLINE 100MG/250ML 250 ML IV ONE (21:30)
[2020-09-29] MEDS ORDERED: diphenhdrAMINE HCL 50 MG/1 ML VL IV ONE (22:30)
[2020-09-29] MEDS ORDERED: LORazepam 2MG/ML-1ML VIAL IV ONE (22:45)
[2020-09-29 23:03] LABS: Basophils # (auto) 0 10 ^3/uL (0-0.2); Basophils % (auto) 0.1 % (0.0-2.0); Eosinophils # (auto) 0 10 ^3/uL (0-0.8); Hematocrit 34.9 % (41.0-53.0); Hemoglobin 11.3 g/dL (13.5-17.5); Lymphocytes # (auto) 0.4 10 ^3/uL (0.4-5.4); Lymphocytes % (auto) 2.6 % (10.0-50.0); Mean Corpuscular Hemoglobin 30.4 pg (28.0-32.0); Mean Corpuscular Hgb Conc. 32.5 g/dL (32.0-36.0); Mean Corpuscular Volume 93.4 fL (80.0-100.0); Monocytes # (auto) 1.2 10 ^3/uL (0-1.3); Monocytes % (auto) 7.9 % (0.0-12.0); Neutrophils % (auto) 89.4 % (37.0-80.0); Red Blood Cells 3.73 10^6/uL (4.5-5.90); Red Cell Distribution Width 14.5 % (11.8-14.3); White Blood Cell 14.6 10^3/uL (4.4-10.8)
[2020-09-29 23:23] LABS: Albumin 2.5 g/dL (3.4-5.0); Anion Gap 13 (5-15); Blood Alcohol < 3.0 mg/dL (0-5); Calcium 8.2 mg/dL (8.5-10.1); Carbon Dioxide 25 mmol/L (21-32); Chloride 93 mmol/L (98-107); Glucose 149 mg/dL (74-106); Magnesium 2.5 mg/dL (1.6-2.6); Sodium 131 mmol/L (136-145)
[2020-09-29 23:28] LABS: Blood Urea Nitrogen 92 mg/dL (7-18); Potassium 6.1 mmol/L (3.5-5.1)
[2020-09-29 23:29] LABS: Lactic Acid w/Reflex 2.9 mmol/L (0.4-2.0)
[2020-09-29 23:31] LABS: INR 1.28 (0.9-1.15); Partial Thromboplastin Time 30.3 sec (23.0-31.2)
[2020-09-29 23:32] LABS: Alanine Aminotransferase 2211 U/L (16-61); Alkaline Phosphatase 167 U/L (45-117); Aspartate Aminotransferase 1958 U/L (15-37); BUN/Creatinine Ratio 9.5; Bilirubin, Total 0.6 mg/dL (0.2-1.0); GFR African American 7 mL/min; GFR Non-African American 6 mL/min; Total Protein 6.7 g/dL (6.4-8.2)
[2020-09-30] MEDS ORDERED: SODIUM BICARBONATE 8.4% INJ 50ML SYRINGE IV ONE
[2020-09-30] MEDS ORDERED: DEXTROSE (50%) 50ML SYRG IV ONE
[2020-09-30] MEDS ORDERED: ALBUTEROL SULF 2.5 MG/0.5ML(0.5%) NEB SOLN NEB ONE
[2020-09-30] MEDS ORDERED: InsuLIN REG 1unit/0.01ml Soln (100units/ml) IV ONE
[2020-09-30] MEDS ORDERED: FUROSEMIDE 20 MG/2 ML VIAL IV ONE
[2020-09-30] MEDS ORDERED: NITROGLYCERIN 0.4 MG SL TAB SL PRN (07:45)
[2020-09-30] MEDS ORDERED: MORPHINE SULFATE INJECTION 2 MG/ML SYRG IV PRN (07:45)
[2020-09-30] MEDS ORDERED: DEXTROSE (50%) 50ML SYRG IV PRN (12:00)
[2020-09-30] MEDS ORDERED: ALBUTEROL SULF HFA 90MCG INH 200DOSE IN SCH (12:00)
[2020-09-30] MEDS: hydrALAZINE HCL 20 MG/ML VL IV SCH ×2 (13:25→19:46)
[2020-09-30] MEDS: CHOLECALCIFEROL (VITD3) 2,000 UNIT CAP/TAB PO SCH (13:26)
[2020-09-30] MEDS: ZINC SULFATE 220mg CAP or TAB PO SCH (13:26)
[2020-09-30] MEDS: AZITHROMYCIN 500MG/ 250ML 250 ML IV SCH (13:27)
[2020-09-30] MEDS: InsuLIN REG 1unit/0.01ml Soln (100units/ml) SC SCH ×2 (13:31→19:50)
[2020-09-30] MEDS: ACCU-CHEK COMFORT CURVE STRIP VI SCH ×2 (13:32→19:46)
[2020-09-30] MEDS: INSULIN LANTUS (GLARGINE) 1 /0.01ml (100units/ml) SC SCH (22:00)
[2020-09-30] MEDS ORDERED: AMIODARONE HCL 200 MG TAB PO SCH (22:00)
[2020-09-30] MEDS: CARVEDILOL 3.125 MG TAB PO SCH (22:00)
[2020-10-01] MEDS: hydrALAZINE HCL 20 MG/ML VL IV SCH ×5 (05:36→22:26)
[2020-10-01] MEDS ORDERED: SODIUM CHL 0.9% 1000 ML BAG XX ONE (05:45)
[2020-10-01] MEDS: InsuLIN REG 1unit/0.01ml Soln (100units/ml) SC SCH ×5 (06:00→22:25)
[2020-10-01] MEDS: ACCU-CHEK COMFORT CURVE STRIP VI SCH ×5 (06:18→22:23)
[2020-10-01 08:00] VITALS: BP_SYST 112; BP_SYST 121; BP_DIAS 46; BP_DIAS 71
[2020-10-01 09:04] LABS: Basophils # (auto) 0 10 ^3/uL (0-0.2); Basophils % (auto) 0.2 % (0.0-2.0); Eosinophils # (auto) 0 10 ^3/uL (0-0.8); Eosinophils % (auto) 0.1 % (0.0-7.0); Hemoglobin 10.3 g/dL (13.5-17.5); Lymphocytes # (auto) 0.2 10 ^3/uL (0.4-5.4); Lymphocytes % (auto) 1.4 % (10.0-50.0); Mean Corpuscular Hemoglobin 30.2 pg (28.0-32.0); Mean Corpuscular Hgb Conc. 33.2 g/dL (32.0-36.0); Monocytes # (auto) 0.8 10 ^3/uL (0-1.3); Monocytes % (auto) 5.4 % (0.0-12.0); Neutrophils # (auto) 13.2 10 ^3/uL (1.6-8.6); Neutrophils % (auto) 92.9 % (37.0-80.0); Red Cell Distribution Width 14.3 % (11.8-14.3); White Blood Cell 14.2 10^3/uL (4.4-10.8)
[2020-10-01 09:23] LABS: Albumin 2.6 g/dL (3.4-5.0); Calcium 7.7 mg/dL (8.5-10.1); Potassium 3.5 mmol/L (3.5-5.1)
[2020-10-01 09:32] LABS: Bilirubin, Total 0.6 mg/dL (0.2-1.0); Total Protein 6.6 g/dL (6.4-8.2)
[2020-10-01 09:33] LABS: BUN/Creatinine Ratio 9.5
[2020-10-01] MEDS ORDERED: ENOXAPARIN SOD 60 MG/0.6 ML SYRINGE SC SCH (10:00)
[2020-10-01] MEDS ORDERED: ATORVASTATIN 20 MG TAB PO SCH (10:00)
[2020-10-01] MEDS: CARVEDILOL 3.125 MG TAB PO SCH ×2 (10:00→22:22)
[2020-10-01] MEDS: ZINC SULFATE 220mg CAP or TAB PO SCH (10:09)
[2020-10-01] MEDS: AZITHROMYCIN 500MG/ 250ML 250 ML IV SCH (10:09)
[2020-10-01] MEDS: FAMOTIDINE (10MG/ML) 2ML VL IV SCH (10:09)
[2020-10-01] MEDS: ASCORBIC ACID 500 MG TAB PO SCH (10:09)
[2020-10-01] MEDS: DexAMETHasone SOD PHOS 10MG/1ML VIAL INJ IV SCH (10:09)
[2020-10-01] MEDS: CHOLECALCIFEROL (VITD3) 2,000 UNIT CAP/TAB PO SCH (10:10)
[2020-10-01] MEDS: INSULIN LANTUS (GLARGINE) 1 /0.01ml (100units/ml) SC SCH ×2 (10:33→22:24)
[2020-10-01 16:00] VITALS: BP 164/83
[2020-10-01] MEDS: HYDROCORTISONE 2.5% TOPICAL CREAM 30GM TUBE TOP SCH ×2 (18:19→22:22)
[2020-10-01] MEDS: LIDOCAINE VISCOUS 2% 15ML UD MT PRN (18:32)
[2020-10-01 21:00] VITALS: BP 149/73
[2020-10-01] MEDS: diphenhdrAMINE HCL 12.5 MG/5 ML UD PO PRN (22:25)
[2020-10-02 05:00] VITALS: BP 161/77
[2020-10-02] MEDS: hydrALAZINE HCL 20 MG/ML VL IV SCH ×4 (06:28→22:55)
[2020-10-02] MEDS: InsuLIN REG 1unit/0.01ml Soln (100units/ml) SC SCH ×4 (06:29→22:59)
[2020-10-02] MEDS: ACCU-CHEK COMFORT CURVE STRIP VI SCH ×4 (06:30→23:01)
[2020-10-02] MEDS: HYDROCORTISONE 2.5% TOPICAL CREAM 30GM TUBE TOP SCH ×3 (06:30→22:54)
[2020-10-02 08:00] VITALS: BP 155/80
[2020-10-02 08:09] LABS: Basophils # (auto) 0.1 10 ^3/uL (0-0.2); Basophils % (auto) 0.5 % (0.0-2.0); Eosinophils # (auto) 0 10 ^3/uL (0-0.8); Hematocrit 32.5 % (41.0-53.0); Hemoglobin 10.5 g/dL (13.5-17.5); Lymphocytes # (auto) 0.3 10 ^3/uL (0.4-5.4); Lymphocytes % (auto) 2.1 % (10.0-50.0); Mean Corpuscular Hgb Conc. 32.4 g/dL (32.0-36.0); Mean Corpuscular Volume 92.5 fL (80.0-100.0); Monocytes # (auto) 0.6 10 ^3/uL (0-1.3); Monocytes % (auto) 4.6 % (0.0-12.0); Neutrophils # (auto) 11.8 10 ^3/uL (1.6-8.6); Neutrophils % (auto) 92.8 % (37.0-80.0); Nucleated Red Blood Cells % 0.1 %; Red Blood Cells 3.52 10^6/uL (4.5-5.90); Red Cell Distribution Width 14.7 % (11.8-14.3); White Blood Cell 12.7 10^3/uL (4.4-10.8)
[2020-10-02 08:24] LABS: Albumin 2.6 g/dL (3.4-5.0); Calcium 8.3 mg/dL (8.5-10.1); Potassium 4.9 mmol/L (3.5-5.1)
[2020-10-02 08:30] LABS: Bilirubin, Total 0.6 mg/dL (0.2-1.0); Total Protein 6.4 g/dL (6.4-8.2)
[2020-10-02] MEDS: ZINC SULFATE 220mg CAP or TAB PO SCH (09:34)
[2020-10-02] MEDS: AZITHROMYCIN 500MG/ 250ML 250 ML IV SCH (09:34)
[2020-10-02] MEDS: DexAMETHasone SOD PHOS 10MG/1ML VIAL INJ IV SCH (09:34)
[2020-10-02] MEDS: CARVEDILOL 3.125 MG TAB PO SCH ×2 (09:35→22:54)
[2020-10-02] MEDS: ASCORBIC ACID 500 MG TAB PO SCH (09:35)
[2020-10-02] MEDS: CHOLECALCIFEROL (VITD3) 2,000 UNIT CAP/TAB PO SCH (09:35)
[2020-10-02] MEDS: INSULIN LANTUS (GLARGINE) 1 /0.01ml (100units/ml) SC SCH ×2 (09:36→22:00)
[2020-10-02 16:00] VITALS: BP 157/73
[2020-10-02] MEDS: LIDOCAINE VISCOUS 2% 15ML UD MT PRN (21:08)
[2020-10-02 22:00] VITALS: BP 161/80
[2020-10-03 05:00] VITALS: BP 157/73
[2020-10-03] MEDS: hydrALAZINE HCL 20 MG/ML VL IV SCH (05:52)
[2020-10-03] MEDS: HYDROCORTISONE 2.5% TOPICAL CREAM 30GM TUBE TOP SCH ×3 (05:53→21:32)
[2020-10-03] MEDS: InsuLIN REG 1unit/0.01ml Soln (100units/ml) SC SCH ×4 (05:53→23:42)
[2020-10-03] MEDS: ACCU-CHEK COMFORT CURVE STRIP VI SCH ×4 (05:53→23:41)
[2020-10-03 07:26] LABS: Basophils # (auto) 0 10 ^3/uL (0-0.2); Basophils % (auto) 0.4 % (0.0-2.0); Eosinophils # (auto) 0 10 ^3/uL (0-0.8); Hematocrit 29.9 % (41.0-53.0); Hemoglobin 9.9 g/dL (13.5-17.5); Lymphocytes # (auto) 0.3 10 ^3/uL (0.4-5.4); Lymphocytes % (auto) 2.6 % (10.0-50.0); Mean Corpuscular Hemoglobin 30.3 pg (28.0-32.0); Mean Corpuscular Volume 91.7 fL (80.0-100.0); Monocytes # (auto) 0.5 10 ^3/uL (0-1.3); Neutrophils # (auto) 10.1 10 ^3/uL (1.6-8.6); Nucleated Red Blood Cells % 0.1 %; Red Blood Cells 3.26 10^6/uL (4.5-5.90); Red Cell Distribution Width 14.7 % (11.8-14.3)
[2020-10-03 07:53] LABS: Albumin 2.5 g/dL (3.4-5.0); BUN/Creatinine Ratio 9.7; Bilirubin, Total 0.5 mg/dL (0.2-1.0); Calcium 8.3 mg/dL (8.5-10.1)
[2020-10-03 08:00] VITALS: BP 124/54
[2020-10-03] MEDS: DexAMETHasone SOD PHOS 10MG/1ML VIAL INJ IV SCH (09:42)
[2020-10-03] MEDS: AZITHROMYCIN 500MG/ 250ML 250 ML IV SCH (09:43)
[2020-10-03] MEDS: FAMOTIDINE (10MG/ML) 2ML VL IV SCH (09:43)
[2020-10-03] MEDS: ZINC SULFATE 220mg CAP or TAB PO SCH (09:43)
[2020-10-03] MEDS: SODIUM ZIRCONIUM CYCL 10 GM PAK PO SCH (09:44)
[2020-10-03] MEDS: ASCORBIC ACID 500 MG TAB PO SCH (09:44)
[2020-10-03] MEDS: CARVEDILOL 3.125 MG TAB PO SCH ×2 (09:44→21:17)
[2020-10-03] MEDS: CHOLECALCIFEROL (VITD3) 2,000 UNIT CAP/TAB PO SCH (09:45)
[2020-10-03] MEDS: INSULIN LANTUS (GLARGINE) 1 /0.01ml (100units/ml) SC SCH ×2 (10:00→21:37)
[2020-10-03] MEDS ORDERED: SODIUM ZIRCONIUM CYCL 10 GM PAK PO ONE (11:45)
[2020-10-03] MEDS: GABAPENTIN 300 MG CAP PO SCH ×2 (14:45→21:17)
[2020-10-03 16:00] VITALS: BP 161/76
[2020-10-03] MEDS: LIDOCAINE VISCOUS 2% 15ML UD MT PRN (20:53)
[2020-10-03] MEDS: hydrALAZINE HCL 25 MG TAB PO SCH (21:16)
[2020-10-03] MEDS: diphenhdrAMINE HCL 12.5 MG/5 ML UD PO PRN (21:32)
[2020-10-03 22:00] VITALS: BP 170/69
[2020-10-04 05:00] VITALS: BP 171/74
[2020-10-04] MEDS: InsuLIN REG 1unit/0.01ml Soln (100units/ml) SC SCH ×3 (05:53→18:00)
[2020-10-04] MEDS: HYDROCORTISONE 2.5% TOPICAL CREAM 30GM TUBE TOP SCH ×2 (05:53→14:00)
[2020-10-04] MEDS: GABAPENTIN 300 MG CAP PO SCH ×2 (06:04→14:00)
[2020-10-04] MEDS: ACCU-CHEK COMFORT CURVE STRIP VI SCH ×3 (06:04→18:00)
[2020-10-04] MEDS ORDERED: hydrALAZINE HCL 20 MG/ML VL IV PRN (06:45)
[2020-10-04] MEDS ORDERED: SODIUM CHL 0.9% 1000 ML BAG XX ONE ×2 (07:00→18:45)
[2020-10-04 09:37] LABS: Potassium 5.2 mmol/L (3.5-5.1)
[2020-10-04] MEDS: AZITHROMYCIN 500MG/ 250ML 250 ML IV SCH (09:40)
[2020-10-04] MEDS: CARVEDILOL 3.125 MG TAB PO SCH (09:41)
[2020-10-04] MEDS: hydrALAZINE HCL 25 MG TAB PO SCH (09:41)
[2020-10-04] MEDS: ZINC SULFATE 220mg CAP or TAB PO SCH (09:41)
[2020-10-04] MEDS: SODIUM ZIRCONIUM CYCL 10 GM PAK PO SCH (09:42)
[2020-10-04] MEDS: CHOLECALCIFEROL (VITD3) 2,000 UNIT CAP/TAB PO SCH (09:42)
[2020-10-04] MEDS: ASCORBIC ACID 500 MG TAB PO SCH (09:42)
[2020-10-04 09:43] LABS: Albumin 2.4 g/dL (3.4-5.0); BUN/Creatinine Ratio 9.7; Bilirubin, Total 0.6 mg/dL (0.2-1.0); Total Protein 5.6 g/dL (6.4-8.2)
[2020-10-04 09:48] LABS: Basophils # (auto) 0.1 10 ^3/uL (0-0.2); Basophils % (auto) 0.7 % (0.0-2.0); Eosinophils # (auto) 0 10 ^3/uL (0-0.8); Hematocrit 29.8 % (41.0-53.0); Hemoglobin 9.8 g/dL (13.5-17.5); Lymphocytes # (auto) 0.2 10 ^3/uL (0.4-5.4); Lymphocytes % (auto) 2.3 % (10.0-50.0); Mean Corpuscular Hemoglobin 30.3 pg (28.0-32.0); Mean Corpuscular Volume 91.8 fL (80.0-100.0); Monocytes # (auto) 0.4 10 ^3/uL (0-1.3); Monocytes % (auto) 3.9 % (0.0-12.0); Neutrophils # (auto) 8.4 10 ^3/uL (1.6-8.6); Neutrophils % (auto) 93.1 % (37.0-80.0); Red Blood Cells 3.25 10^6/uL (4.5-5.90); Red Cell Distribution Width 14.6 % (11.8-14.3); White Blood Cell 9.1 10^3/uL (4.4-10.8)
[2020-10-04] MEDS: INSULIN LANTUS (GLARGINE) 1 /0.01ml (100units/ml) SC SCH (10:00)
[2020-10-04] MEDS ORDERED: HYDROcodone-ACET 5/325MG TAB PO PRN (15:30)
[2020-10-04] MEDS ORDERED: MICAFUNGIN SODIUM 100 MG in SODIUM CHL 0.9% 100 ML IV ONE (15:30)
[2020-10-04] MEDS ORDERED: FLUC200T35 PO ×2 (17:24)
[2020-10-04 17:32] VITALS: BP 147/68
[2020-10-04] MEDS ORDERED: EPOETIN ALFA 4,000 UNIT/ML VL SC ONE ×2 (21:00)
[2020-10-04 21:02] VITALS: BP 150/70
== END 2020-10-04 21:25 | disposition home health service (06) | DRG 52 ==
LOC: EDBD 18:08 → ER 18:08 → TELE 18:09 → TELE-CENTR 10-01 02:55
PROVIDERS: ADMIT Hospitalist; ATTEND Hospitalist
PROC: 5A1D70Z Performance of Urinary Filtration, Intermittent, Less than 6 Hours Per Day (ICD-10-PCS; principal; 2020-10-01)
PROC: 5A1D70Z Performance of Urinary Filtration, Intermittent, Less than 6 Hours Per Day (ICD-10-PCS; 2020-10-04)
DX: G93.41 Metabolic encephalopathy (principal); U07.1 COVID-19; J96.21 Acute and chronic respiratory failure with hypoxia; I21.4 Non-ST elevation (NSTEMI) myocardial infarction; K72.00 Acute and subacute hepatic failure without coma; J12.82 Pneumonia due to coronavirus disease 2019; I50.31 Acute diastolic (congestive) heart failure; I13.2 Hypertensive heart and chronic kidney disease with heart failure and with stage 5 chronic kidney disease, or end stage renal disease; B49 Unspecified mycosis; I48.20 Chronic atrial fibrillation, unspecified; N18.6 End stage renal disease; E87.5 Hyperkalemia; D69.6 Thrombocytopenia, unspecified; E11.22 Type 2 diabetes mellitus with diabetic chronic kidney disease; E78.5 Hyperlipidemia, unspecified; R79.89 Other specified abnormal findings of blood chemistry; K21.9 Gastro-esophageal reflux disease without esophagitis; K40.90 Unilateral inguinal hernia, without obstruction or gangrene, not specified as recurrent; J06.9 Acute upper respiratory infection, unspecified; K74.60 Unspecified cirrhosis of liver; D63.1 Anemia in chronic kidney disease; Z79.01 Long term (current) use of anticoagulants; Z79.4 Long term (current) use of insulin; Z80.0 Family history of malignant neoplasm of digestive organs; Z82.49 Family history of ischemic heart disease and other diseases of the circulatory system; Z83.3 Family history of diabetes mellitus; Z87.01 Personal history of pneumonia (recurrent); Z91.19 Patient's noncompliance with other medical treatment and regimen; Z99.2 Dependence on renal dialysis; Z79.899 Other long term (current) drug therapy; Z88.8 Allergy status to other drugs, medicaments and biological substances
CPT/HCPCS: 36415; 36600; 70450; 71045; 74176; 76705; 78582; 80053; 80320; 80329; 82140; 82805; 82962; 83605; 83735; 84132; 84484; 85025; 85379; 85610; 85730; 87040; 87077; 87426; 90935; 93005; 93970; 94640; 97110; 97116; 97530; G0378; J1100; J1642; J1815; J2248; J3490

== ENCOUNTER 2020-10-11 11:42 | Inpatient (IN) | payer MEDICAID ==
[~2020-10-11] VITALS: Ht 172.7 cm; Wt 97.5 kg
[~2020-10-11 11:42] MED LIST changes: -AMIO200T33 PO; +FLUC200T35 PO
[2020-10-11 13:34] LABS: Basophils # (auto) 0.1 10 ^3/uL (0-0.2); Basophils % (auto) 0.7 % (0.0-2.0); Eosinophils # (auto) 0.1 10 ^3/uL (0-0.8); Eosinophils % (auto) 0.5 % (0.0-7.0); Hematocrit 31.1 % (41.0-53.0); Lymphocytes # (auto) 0.5 10 ^3/uL (0.4-5.4); Lymphocytes % (auto) 4.8 % (10.0-50.0); Mean Corpuscular Hemoglobin 30.1 pg (28.0-32.0); Mean Corpuscular Hgb Conc. 32.2 g/dL (32.0-36.0); Mean Corpuscular Volume 93.5 fL (80.0-100.0); Monocytes # (auto) 1.2 10 ^3/uL (0-1.3); Monocytes % (auto) 10.7 % (0.0-12.0); Neutrophils # (auto) 9.4 10 ^3/uL (1.6-8.6); Neutrophils % (auto) 83.3 % (37.0-80.0); Platelet Count (auto) 158 10^3/uL (140-450); Red Blood Cells 3.33 10^6/uL (4.5-5.90); Red Cell Distribution Width 15.7 % (11.8-14.3); White Blood Cell 11.3 10^3/uL (4.4-10.8)
[2020-10-11 13:53] LABS: INR 1.13 (0.9-1.15); Partial Thromboplastin Time 30.3 sec (23.0-31.2)
[2020-10-11 13:59] LABS: Albumin 2.4 g/dL (3.4-5.0); BUN/Creatinine Ratio 6.2; Calcium 8.3 mg/dL (8.5-10.1)
[2020-10-11 14:04] LABS: Bilirubin, Total 0.5 mg/dL (0.2-1.0); Total Protein 5.6 g/dL (6.4-8.2)
[2020-10-11 14:06] LABS: Potassium 5.8 mmol/L (3.5-5.1)
[2020-10-11] MEDS ORDERED: SODIUM ZIRCONIUM CYCL 10 GM PAK PO ONE (17:15)
[2020-10-11] MEDS ORDERED: ENOXAPARIN SOD 100 MG/1 ML SYRINGE SC ONE (17:15)
[2020-10-11] MEDS ORDERED: DEXTROSE (50%) 50ML SYRG IV ONE (17:15)
[2020-10-11] MEDS ORDERED: FUROSEMIDE 20 MG/2 ML VIAL IV ONE (17:15)
[2020-10-11] MEDS ORDERED: ALBUTEROL SULF 2.5 MG/0.5ML(0.5%) NEB SOLN NEB ONE (17:15)
[2020-10-11] MEDS ORDERED: SODIUM BICARBONATE 8.4% INJ 50ML SYRINGE IV ONE (17:15)
[2020-10-11] MEDS ORDERED: CALCIUM GLUC 4.65meq/50ml D5AE 50 ML IV ONE (17:15)
[2020-10-11] MEDS ORDERED: InsuLIN REG 1unit/0.01ml Soln (100units/ml) IV ONE (17:15)
[2020-10-11] MEDS ORDERED: PIPERACILLIN-TAZOB 3.375GM 100 ML IV ONE (17:30)
[2020-10-11] MEDS ORDERED: NITROGLYCERIN 0.4 MG SL TAB SL PRN (17:45)
[2020-10-11] MEDS ORDERED: MORPHINE SULF INJ 2 MG/ML SYRINGE 1ML IV PRN (17:45)
[2020-10-11] MEDS ORDERED: DEXTROSE (50%) 50ML SYRG IV PRN (19:30)
[2020-10-11] MEDS ORDERED: SODIUM CHL 0.9% 1000 ML BAG XX ONE (20:45)
[2020-10-11] MEDS: GABAPENTIN 300 MG CAP PO SCH (22:00)
[2020-10-11] MEDS: CARVEDILOL 3.125 MG TAB PO SCH (22:00)
[2020-10-11] MEDS: ACCU-CHEK COMFORT CURVE STRIP VI SCH (22:19)
[2020-10-11] MEDS: InsuLIN REG 1unit/0.01ml Soln (100units/ml) SC SCH (22:19)
[2020-10-11] MEDS: INSULIN LANTUS (GLARGINE) 1 /0.01ml (100units/ml) SC SCH (22:21)
[2020-10-12 02:41] LABS: Anion Gap 8 (5-15); Blood Urea Nitrogen 31 mg/dL (7-18); Calcium 8.1 mg/dL (8.5-10.1); Carbon Dioxide 29 mmol/L (21-32); Chloride 101 mmol/L (98-107); Glucose 144 mg/dL (74-106); Potassium 4.1 mmol/L (3.5-5.1); Sodium 138 mmol/L (136-145)
[2020-10-12 02:44] LABS: BUN/Creatinine Ratio 4.8; GFR African American 11 mL/min; GFR Non-African American 9 mL/min
[2020-10-12] MEDS: ACCU-CHEK COMFORT CURVE STRIP VI SCH ×4 (06:18→21:39)
[2020-10-12] MEDS: InsuLIN REG 1unit/0.01ml Soln (100units/ml) SC SCH ×4 (06:18→21:40)
[2020-10-12 08:00] VITALS: BP 148/84
[2020-10-12] MEDS: APIXABAN 5 MG TAB PO SCH ×2 (09:52→21:39)
[2020-10-12] MEDS: ATORVASTATIN 20 MG TAB PO SCH (09:52)
[2020-10-12] MEDS: PANTOPRAZOLE 40 MG TAB PO SCH (09:52)
[2020-10-12] MEDS: CARVEDILOL 3.125 MG TAB PO SCH ×2 (09:52→21:39)
[2020-10-12] MEDS: GABAPENTIN 300 MG CAP PO SCH ×2 (09:52→21:39)
[2020-10-12] MEDS: INSULIN LANTUS (GLARGINE) 1 /0.01ml (100units/ml) SC SCH ×2 (10:13→21:40)
[2020-10-12 10:55] LABS: BUN/Creatinine Ratio 5.1; Calcium 7.8 mg/dL (8.5-10.1); Potassium 4.6 mmol/L (3.5-5.1)
[2020-10-12 16:00] VITALS: BP 139/51
[2020-10-12] MEDS: HYDROcodone-ACET 5/325MG TAB PO PRN (18:48)
[2020-10-12 20:03] VITALS: BP 132/78
[2020-10-12 22:00] VITALS: BP 134/70
[2020-10-13 05:00] VITALS: BP 149/88
[2020-10-13] MEDS: InsuLIN REG 1unit/0.01ml Soln (100units/ml) SC SCH ×2 (07:00→11:30)
[2020-10-13] MEDS ORDERED: SODIUM CHL 0.9% 1000 ML BAG XX ONE (07:00)
[2020-10-13] MEDS: ACCU-CHEK COMFORT CURVE STRIP VI SCH ×2 (07:00→11:30)
[2020-10-13 08:00] VITALS: BP 141/77
[2020-10-13] MEDS: HYDROcodone-ACET 5/325MG TAB PO PRN (08:41)
[2020-10-13] MEDS: CARVEDILOL 3.125 MG TAB PO SCH (10:59)
[2020-10-13] MEDS: GABAPENTIN 300 MG CAP PO SCH (10:59)
[2020-10-13] MEDS: APIXABAN 5 MG TAB PO SCH (10:59)
[2020-10-13] MEDS: ATORVASTATIN 20 MG TAB PO SCH (10:59)
[2020-10-13] MEDS: PANTOPRAZOLE 40 MG TAB PO SCH (11:00)
[2020-10-13] MEDS: INSULIN LANTUS (GLARGINE) 1 /0.01ml (100units/ml) SC SCH (11:00)
[2020-10-14 13:06] LABS: Hepatitis B Surface Antigen Negative (Negative); Hepatitis C Antibody Negative (Negative)
== END 2020-10-13 13:00 | DRG 194 ==
LOC: ER 11:42 → EDBD 11:42 → TELE 11:43 → TELE-EAST 10-12 05:50
PROVIDERS: ADMIT Internal Medicine; ATTEND Internal Medicine
PROC: 5A1D70Z Performance of Urinary Filtration, Intermittent, Less than 6 Hours Per Day (ICD-10-PCS; principal; 2020-10-11)
PROC: 5A1D70Z Performance of Urinary Filtration, Intermittent, Less than 6 Hours Per Day (ICD-10-PCS; 2020-10-13)
DX: I13.2 Hypertensive heart and chronic kidney disease with heart failure and with stage 5 chronic kidney disease, or end stage renal disease (principal); G93.41 Metabolic encephalopathy; E87.5 Hyperkalemia; N18.6 End stage renal disease; I50.9 Heart failure, unspecified; E11.40 Type 2 diabetes mellitus with diabetic neuropathy, unspecified; I48.91 Unspecified atrial fibrillation; K21.9 Gastro-esophageal reflux disease without esophagitis; R53.81 Other malaise; D64.9 Anemia, unspecified; Z99.2 Dependence on renal dialysis; Z20.822 Contact with and (suspected) exposure to COVID-19; E78.5 Hyperlipidemia, unspecified; Z91.19 Patient's noncompliance with other medical treatment and regimen; Z83.3 Family history of diabetes mellitus; Z80.0 Family history of malignant neoplasm of digestive organs
CPT/HCPCS: 36415; 71045; 80048; 80053; 82962; 83880; 84132; 84484; 85025; 85610; 85730; 86803; 87081; 87340; 87426; 90935; 93005; 94640; 96374; 96375; 97110; 97530; 99291; G0378; J0610; J1642; J1815; J2543